=== PATIENT | male | born 1980 | race Caucasian/White ===

== ENCOUNTER 2016-08-12 03:05 | Inpatient (IN) | payer OTHER ==
[~2016-08-12] VITALS: Ht 180.3 cm; Wt 103.0 kg
[2016-08-12] VITALS (22 sets, daily range): BP systolic 116–163; BP diastolic 51–93; PULSE 66–94; RESP 12–22; TEMP 98.4–100.1; O2SAT 96–100
[~2016-08-12 03:05] MED LIST: IBUP800T23 PO; ROBA750T3 PO; Z.0.NO CURRENT MEDS
[2016-08-12] MEDS ORDERED: ALPR1TAB3 PO (03:15)
[2016-08-12] MEDS ORDERED: SODIUM CHLOR 0.9% 1000 ML INJ 1,000 ML IV SCH ×2 (03:24→08:32)
[2016-08-12] MEDS ORDERED: ceFAZolin 2 GM PREMIX 50 ML IV ONE (03:30)
[2016-08-12] MEDS ORDERED: SODIUM CHLORIDE 0.9% FLUSH 10 ML FLUSH IVF PRN (03:30)
[2016-08-12 03:49] LABS: AUTOMATED NEUTROPHIL # 7.4 TH/MM3 (1.8-7.7); BASOPHIL # 0.1 TH/MM3 (0-0.2); EOSINOPHIL # 1.1 TH/MM3 (0-0.4); EOSINOPHIL % 8.7 % (0.0-4.0); HEMATOCRIT 38.3 % (39.0-51.0); HEMO FLAGS DIFF FINAL; LYMPH % 17.6 % (9.0-44.0); LYMPHOCYTE # 2.1 TH/MM3 (1.0-4.8); MEAN CELL VOLUME 85.8 FL (80.0-100.0); MEAN CORPUSCULAR HEMOGLOBIN 29.2 PG (27.0-34.0); MONO % 11.7 % (0.0-8.0); PLATELET COUNT 266 TH/MM3 (150-450); RED BLOOD COUNT 4.46 MIL/MM3 (4.50-5.90); RED CELL DISTRIBUTION WIDTH 13.3 % (11.6-17.2); WHITE BLOOD COUNT 12.2 TH/MM3 (4.0-11.0)
[2016-08-12 03:56] LABS: APTT (PATIENT) 27.3 SEC (24.3-30.1); INTERNATIONAL NORMALIZED RATIO 0.9 RATIO; PROTHROMBIN TIME - PATIENT 10.3 SEC (9.8-11.6)
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
[2016-08-12] MEDS ORDERED: ONDANSETRON HCL 4 MG/2 ML VIAL ONE (04:15)
[2016-08-12] MEDS ORDERED: ONDANSETRON HCL 4 MG/2 ML VIAL IV ONE (04:30)
[2016-08-12] MEDS ORDERED: IOHEXOL 350 MG/ML 10 ML VIAL (for RAD DIAG) IV ONE (04:39)
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
[2016-08-12 05:35] LABS: BLOOD, URINE NEG (NEG); COMMENT (UR) CULT NOT INDICATED; CULTURE IF INDICATED CULT NOT INDICATED; GLUCOSE,URINE NEG (NEG); KETONE, URINE NEG (NEG); MUCUS URINE FEW /lpf (OCC); NITRITE,URINE NEG (NEG); URINE COLOR LIGHT-YELLOW (YELLW/STRAW)
[2016-08-12 05:35] LABS: AST (GOT) 18 U/L (15-37); BLOOD UREA NITROGEN 22 MG/DL (7-18); CHLORIDE 106 MEQ/L (98-107); GLOMERULAR FILTRATION RATE 62 ML/MIN (>89); POTASSIUM 4.8 MEQ/L (3.5-5.1); SODIUM (NA) 140 MEQ/L (136-145)
[2016-08-12 05:36] LABS: TOTAL BILIRUBIN ADULT 0.3 MG/DL (0.2-1.0)
[2016-08-12 05:38] LABS: AMPHETAMINE, URINE POS (NEG); BARBITURATES, URINE NEG (NEG); COCAINE, URINE POS (NEG)
[2016-08-12 05:54] LABS: ALT (GPT) 27 U/L (12-78); ANION GAP 8 MEQ/L (5-15); BICARBONATE 25.7 MEQ/L (21.0-32.0)
[2016-08-12 05:56] LABS: ALKALINE PHOSPHATASE 59 U/L (45-117)
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
[2016-08-12] MEDS ORDERED: MORPHINE SULFATE 4 MG/ML INJ IV PUSH ONE (07:45)
[2016-08-12] MEDS ORDERED: LIDOCAINE 1%/EPINEPHrine 1:100,000 SOLN 50 ML VIAL ONE (08:32)
[2016-08-12] MEDS ORDERED: GENTAMICIN SULFATE 80 MG/2 ML VIAL ONE (08:32)
[2016-08-12] MEDS ORDERED: GELFOAM SIZE 100 ONE (08:32)
[2016-08-12] MEDS ORDERED: THROMBIN (TOPICAL) 5,000 UNIT VIAL ONE (08:32)
[2016-08-12] MEDS ORDERED: ETOMIDATE 20 MG/10 ML VIAL ONE (08:32)
[2016-08-12] MEDS ORDERED: MIDAZOLAM HCL 5 MG/ML VIAL (1 ML) ONE (08:38)
[2016-08-12] MEDS ORDERED: NOREPINEPHRINE-DEXTROSE DRIP 250 ML IV ONE (08:39)
[2016-08-12] MEDS ORDERED: VANCOMYCIN HCL 1000 MG VIAL ONE (08:41)
[2016-08-12] MEDS ORDERED: MANNITOL INJ 50 ML ONE ×2 (08:42→09:01)
[2016-08-12] MEDS ORDERED: levETIRAcetam 500 MG/5 ML VIAL IV ONE (08:42)
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
[2016-08-12] MEDS ORDERED: ONDANSETRON HCL 4 MG/2 ML VIAL IV PRN ×2 (08:45→11:00)
[2016-08-12] MEDS ORDERED: SODIUM CHLORIDE 0.9% FLUSH 10 ML FLUSH IV FLUSH PRN (08:45)
[2016-08-12] MEDS ORDERED: ACETAMINOPHEN 325 MG TAB PO PRN (08:45)
[2016-08-12] MEDS ORDERED: ENALAPRILAT 1.25 MG/ML VIAL IV PRN (08:45)
--- NOTE | 2016-08-12 08:52 | RADRPT ---
EXAM DATE/TIME: 08/12/2016 08:08 [facility] COMPARISON: CT BRAIN W/O CONTRAST, August 12, 2016, 4:21. INDICATIONS : Evaluate intracranial hemorrhage. RADIATION DOSE: 40.82 CTDIvol (mGy) MEDICAL HISTORY : Non-responsive. SURGICAL HISTORY : Non-responsive. ENCOUNTER: Subsequent ACUITY: 1 day PAIN SCALE: Non-responsive LOCATION: Cranial TECHNIQUE: Multiple contiguous axial images were obtained of the head. Using automated exposure control and adj ustment of the mA and/or kV according to patient size, radiation dose was kept as low as reasonably a chievable to obtain optimal diagnostic quality images. FINDINGS: There is interval worsening of subfalcine herniation to the left which now measures 12 mm. The acute subdural hematoma along the right frontoparietal and temporal lobes has increased very slightly in o verall size compared to the previous examination and now measures 6 mm in greatest width. Extensive interparenchymal hemorrhage within the right high parietal region and probable acute subarachnoid hem orrhage within the right high parietal region is again noted. The acute displaced right high parieta l skull fracture is stable. CONCLUSION: 1. Interval worsening subfalcine herniation to the left which now measures 12 mm. 2. Slight interval increase in the acute subdural hematoma along the right frontoparietal and tempor al lobes which now measures 6 mm in greatest width. 3. Stable to slightly increased interparenchymal and subarachnoid hemorrhage within the right pariet al region. 4. Stable acute displaced right parietal skull fractures. Kt Henderson MD on August 12, 2016 at 8:18 Board Certified Radiologist. This report was verified electronically.
[2016-08-12] MEDS ORDERED: ROCURONIUM INJ 50 MG/5 ML VIAL ONE (08:57)
[2016-08-12] MEDS ORDERED: DOCUSATE SODIUM 100 MG CAP PO SCH (09:00)
[2016-08-12] MEDS ORDERED: MIDAZOLAM HCL 2 MG/2 ML VIAL ONE ×2 (09:02→12:21)
[2016-08-12] MEDS ORDERED: POTASSIUM PHOSPHATE INJ 30 MMOL in SODIUM CHLOR 0.9% 250 ML INJ 250 ML IV PRN (09:15)
[2016-08-12] MEDS ORDERED: MAGNESIUM OXIDE 400 MG TAB PO PRN (09:15)
[2016-08-12] MEDS ORDERED: POTASSIUM CHLOR 40 MEQ PREMIX 100 ML IV PRN ×2 (09:15)
[2016-08-12] MEDS ORDERED: MAGNESIUM SULFATE INJ 4 GM in SODIUM CHLORIDE 0.9% INJ 92 ML IV PRN (09:15)
[2016-08-12] MEDS ORDERED: POTASSIUM CHLORIDE 25 MEQ EFFERVESCENT TAB PO PRN (09:15)
[2016-08-12] MEDS ORDERED: MAGNESIUM SULFATE INJ 2 GM in SODIUM CHLORIDE 0.9% INJ 96 ML IV PRN (09:15)
[2016-08-12] MEDS ORDERED: SODIUM PHOSPHATE INJ 30 MMOL in SODIUM CHLOR 0.9% 250 ML INJ 240 ML IV PRN (09:15)
[2016-08-12] MEDS ORDERED: POTASSIUM CHLOR 20 MEQ PREMIX 100 ML IV PRN ×3 (09:15→10:00)
[2016-08-12] MEDS ORDERED: POTASSIUM PHOSPHATE MONOBASIC 500 MG TAB PO/TUBE PRN (09:15)
[2016-08-12 09:24] LABS: BLOOD GAS BASE EXCESS -0.8 mmol/L (-2-2); BLOOD GAS CARBOXYHEMOGLOBIN 1.6 % (0-4); BLOOD GAS HCO3 24 mmol/L (22-26); BLOOD GAS METHEMOGLOBIN 1.2 % (0-2); BLOOD GAS O2 HGB SATURATION 97 % (90-100); BLOOD GAS OXYGEN CONTENT 17.1 Vol % (12.0-20.0); BLOOD GAS PCO2 44 mmHg (38-42); BLOOD GAS PO2 460 mmHg (61-120); BLOOD GAS TOTAL HGB 11.7 G/DL (12.0-16.0); CRITICAL VALUE NO; FIO2 100 %; OXYGEN DEVICE VENT; TEMP CORR TO 98.6; VENT SETTINGS PRVC/16/525/5/IT1
[2016-08-12 09:25] LABS: DRAW SITE LT RADIAL; NUMBER OF ARTERIAL PUNCTURES 1; STAT NO; ULNAR PULSE PRESENT
--- NOTE | 2016-08-12 09:43 | PD.PROCEDR ---
Procedure Note Procedure Emergency intubation: INTUBATION: The patient was put in optimal position for the procedure. Rapid sequence intubation was initiated by me using 20 milligrams of etomidate IV, Versed 5 mg, Fentanyl 100 mcg IV and 100 milligrams of succinyl choline IV. DL with Mac 4 blade Grade 1 view, single attempt. The patient was intubated with 8.0 ETT cuffed endotracheal tube. Tube placement was confirmed by visualization of the tube and balloon passing through the cords, capnometry and subsequent chest x-ray. Breath sounds were equal and well aerated bilaterally postintubation. No breath sounds over stomach. Patient tolerated procedure well. Ravi Rockwell MD Aug 12, 2016 09:43
--- NOTE | 2016-08-12 09:45 | PD.PROCEDR ---
Central Line Procedure REASON FOR PROCEDURE Central venous access PROCEDURE PERFORMED Central line placement: R subclavian central line CONSENT Informed consent for procedure was obtained from mother and time out performed. The risks and benefits of the procedure were discussed to include but limited to bleeding, clot formation, infection, and even . ANESTHESIA Local injection of 1% Lidocaine DESCRIPTION OF THE PROCEDURE The patient was placed in supine, mild Trendelenburg position. The area was exposed and cleansed with ChloraPrep, times two. Large sterile drape was used to cover the patient, with the site exposed, under sterile conditions including cap, face mask, sterile gown, and sterile gloves. On single attempt, the introducer needle was inserted with negative pressure in syringe and venous flash was obtained. The guide wire was then advanced without any restriction and the needle was removed. The dilator was used without any complications. Using Seldinger technique the 20 cm triple lumen abx coated catheter was advanced over the guide wire to a depth of 18 centimeters. The guide wire was removed. All ports were aspirated with dark venous blood return and flushed easily with sterile saline. All ports were capped. Antibiotic disc was placed around central line at puncture site. The central line was secured to the skin with two interrupted 2.0 silk sutures. The area was bandaged with sterile see- through central line bandage. COMPLICATIONS: No apparent complications ESTIMATED BLOOD LOSS: Less than 1 cc. Ravi Rockwell MD Aug 12, 2016 09:45
--- NOTE | 2016-08-12 09:51 | RADRPT ---
EXAM DATE/TIME: 08/12/2016 09:09 [facility] COMPARISON: CHEST SINGLE AP, August 12, 2016, 3:44. INDICATIONS : Post central line placement. MEDICAL HISTORY : Unobtainable. SURGICAL HISTORY : Unobtainable. ENCOUNTER: Subsequent ACUITY: 2 days PAIN SCORE: Non-responsive. LOCATION: Bilateral chest FINDINGS: A single view of the chest demonstrates endotracheal tube appropriately positioned above the сергей, just below the clavicular heads. Nasogastric tube enters the stomach with the tip at the junction of the fundus and body. Right subclavian central venous catheter with the tip projecting over the centra l venous system. Lungs are hypoinflated but clear. No pneumothorax. Heart size is normal. Osseous structures are intac t. CONCLUSION: 1. Life support tubes appropriately positioned as above. 2. Lungs are hypoinflated but clear. No pneumothorax Milo Mcclure MD on August 12, 2016 at 9:48 Board Certified Radiologist. This report was verified electronically.
[2016-08-12] MEDS ORDERED: PANTOPRAZOLE SODIUM 40 MG VIAL IVP SCH (10:00)
[2016-08-12] MEDS ORDERED: fentaNYL CITRATE 250 MCG/5 ML AMP IV PUSH ONE (10:00)
[2016-08-12] MEDS ORDERED: SUCCINYLCHOLINE CHLORIDE 200 MG/10 ML VIAL IV PUSH ONE (10:00)
[2016-08-12] MEDS ORDERED: CALCIUM GLUCONATE 10% 1 GM/10 ML VIAL IV PRN (10:00)
[2016-08-12] MEDS ORDERED: MIDAZOLAM HCL 5 MG/5 ML VIAL IV PUSH ONE (10:00)
[2016-08-12] MEDS ORDERED: MAGNESIUM SULFATE INJ 4 GM in SODIUM CHLORIDE 0.9% INJ 100 ML IV PRN (10:00)
[2016-08-12] MEDS ORDERED: ETOMIDATE 40 MG/20 ML VIAL IV PUSH ONE (10:00)
[2016-08-12] MEDS ORDERED: MORPHINE SULFATE 4 MG/ML INJ IV PUSH PRN ×2 (10:00)
[2016-08-12] MEDS ORDERED: SODIUM CHLORIDE 0.9% FLUSH 5 ML FLUSH IVF PRN (10:00)
[2016-08-12] MEDS ORDERED: THROMBIN (TOPICAL) 5,000 UNIT VIAL TOP ONE (10:24)
[2016-08-12] MEDS ORDERED: GELFOAM SIZE 100 TOP ONE (10:24)
[2016-08-12] MEDS ORDERED: LIDOCAINE 1%/EPINEPHrine 1:100,000 SOLN 30 ML VIAL INFIL ONE (10:24)
[2016-08-12] MEDS ORDERED: GENTAMICIN SULFATE 80 MG/2 ML VIAL IRRIGATION ONE (10:24)
[2016-08-12 10:30] LABS: BARBITURATES, URINE NEG (NEG)
[2016-08-12 10:32] LABS: AMPHETAMINE, URINE POS (NEG); COCAINE, URINE POS (NEG)
[2016-08-12] MEDS ORDERED: ONDANSETRON HCL 4 MG/2 ML VIAL IV PUSH ONE (10:51)
[2016-08-12] MEDS ORDERED: PHENYLEPH/NS 1000 MCG/10 ML SYR IV ONE (10:51)
[2016-08-12] MEDS ORDERED: SODIUM CHLOR 0.9% 250 ML INJ 250 ML IV ONE (10:51)
[2016-08-12] MEDS ORDERED: LACTATED RINGER'S 1000 ML INJ 1,000 ML IV ONE (10:51)
[2016-08-12] MEDS ORDERED: SODIUM CHLORID 0.9% 500 ML INJ 1,500 ML IV ONE (10:51)
[2016-08-12] MEDS ORDERED: PHENYLEPHRINE HCL 10 MG/ML VIAL IV ONE (10:51)
[2016-08-12] MEDS ORDERED: BISACODYL 10 MG SUPP RECTAL PRN (11:00)
[2016-08-12] MEDS ORDERED: VANCOMYCIN INJ 1,000 MG in SODIUM CHLOR 0.9% 250 ML INJ 250 ML IV ONE (11:30)
[2016-08-12] MEDS ORDERED: RESP: ALBUTEROL 2.5 MG/IPRATROPIUM 0.5 MG NEB (SCH) NEB (12:00)
[2016-08-12 12:24] LABS: MRSA PCR NEGATIVE (NEGATIVE); STAPH AUREUS PCR NEGATIVE (NEGATIVE)
[2016-08-12 12:29] LABS: BLOOD GAS BASE EXCESS -3.4 mmol/L (-2-2); BLOOD GAS CARBOXYHEMOGLOBIN 1.6 % (0-4); BLOOD GAS HCO3 21 mmol/L (22-26); BLOOD GAS METHEMOGLOBIN 1.1 % (0-2); BLOOD GAS O2 HGB SATURATION 96 % (90-100); BLOOD GAS OXYGEN CONTENT 14.6 Vol % (12.0-20.0); BLOOD GAS PCO2 36 mmHg (38-42); BLOOD GAS PO2 161 mmHg (61-120); BLOOD GAS TOTAL HGB 10.5 G/DL (12.0-16.0); CRITICAL VALUE NO; DRAW SITE ART LINE; FIO2 50 %; OXYGEN DEVICE VENTILATOR; STAT NO; TEMP CORR TO 98.6; VENT SETTINGS PRVC/AC
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
[2016-08-12] MEDS: NS + KCL 20 MEQ INJ 1,000 ML IV SCH ×2 (13:05→20:48)
[2016-08-12] MEDS: PIPERACIL-TAZO 3.375 GM PREMIX 50 ML IV SCH ×3 (13:06→23:02)
[2016-08-12] MEDS: ceFAZolin 2 GM PREMIX 50 ML IV SCH ×2 (13:06→20:47)
[2016-08-12] MEDS: levETIRAcetam INJ 500 MG in SODIUM CHLORIDE 0.9% INJ 100 ML IV SCH ×2 (13:11→21:11)
[2016-08-12] MEDS ORDERED: RESP: ALBUTEROL 2.5 MG/IPRATROPIUM 0.5 MG NEB (PRN) NEB (14:00)
[2016-08-12] MEDS: RESP: ALBUTEROL 2.5 MG/IPRATROPIUM 0.5 MG NEB (SCH) NEB ×2 (15:26→20:33)
[2016-08-12] MEDS: PROPOFOL 1000 MG/100 ML INJ 100 ML IV SCH ×4 (16:16→23:01)
[2016-08-12] MEDS: fentaNYL DRIP 250 ML IV SCH (16:17)
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
[2016-08-12] MEDS: DOCUSATE SODIUM 100 MG CAP PO SCH (20:47)
[2016-08-12] MEDS: 3% SALINE INJ 500 ML IV SCH (20:47)
[2016-08-12] MEDS: MAGNESIUM HYDROXIDE SUSP 30 ML CUP PO SCH (20:47)
[2016-08-12] MEDS: SODIUM CHLORIDE 0.9% FLUSH 5 ML FLUSH IVF SCH (20:48)
[2016-08-12] MEDS: CHLORHEXIDINE 0.12% (ORAL KIT) 15 ML CUP MT SCH (20:48)
[2016-08-13] VITALS (19 sets, daily range): BP systolic 112–131; BP diastolic 49–62; PULSE 61–72; RESP 20–22; TEMP 98.9–99.8; O2SAT 98–100
[2016-08-13] MEDS: ceFAZolin 2 GM PREMIX 50 ML IV SCH (02:07)
[2016-08-13] MEDS: fentaNYL DRIP 250 ML IV SCH ×3 (02:07→11:58)
[2016-08-13] MEDS ORDERED: EPINEPHrine HCL (1:10,000) 1 MG/10 ML SYRINGE ONE (03:38)
[2016-08-13] MEDS ORDERED: ATROPINE SULFATE 1 MG/10 ML SYRINGE ONE (03:39)
[2016-08-13] MEDS ORDERED: LIDOCAINE HCL 2% 100 MG/5 ML SYRINGE ONE (03:39)
[2016-08-13] MEDS: PROPOFOL 1000 MG/100 ML INJ 100 ML IV SCH ×7 (03:50→22:31)
[2016-08-13] MEDS: RESP: ALBUTEROL 2.5 MG/IPRATROPIUM 0.5 MG NEB (SCH) NEB ×4 (04:01→20:11)
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
[2016-08-13] MEDS: PIPERACIL-TAZO 3.375 GM PREMIX 50 ML IV SCH ×4 (04:56→22:30)
[2016-08-13 05:48] LABS: BASOPHIL # 0.1 TH/MM3 (0-0.2); BASOPHIL % 0.5 % (0.0-2.0); EOSINOPHIL # 0.1 TH/MM3 (0-0.4); EOSINOPHIL % 0.5 % (0.0-4.0); LYMPH % 15.1 % (9.0-44.0); LYMPHOCYTE # 1.7 TH/MM3 (1.0-4.8); MEAN CELL VOLUME 87.2 FL (80.0-100.0); MEAN CORPUSCULAR HEMOGLOBIN 29.1 PG (27.0-34.0); MEAN CORPUSCULAR HGB CONC 33.4 % (32.0-36.0); MONO % 12.2 % (0.0-8.0); NEUT % 71.7 % (16.0-70.0); PLATELET COUNT 191 TH/MM3 (150-450); RED BLOOD COUNT 3.32 MIL/MM3 (4.50-5.90); RED CELL DISTRIBUTION WIDTH 13.3 % (11.6-17.2); WHITE BLOOD COUNT 11.2 TH/MM3 (4.0-11.0)
[2016-08-13 05:51] LABS: HEMO FLAGS DIFF FINAL
[2016-08-13 06:00] LABS: INTERNATIONAL NORMALIZED RATIO 0.9 RATIO; PROTHROMBIN TIME - PATIENT 10.3 SEC (9.8-11.6)
[2016-08-13 06:22] LABS: ANION GAP 9 MEQ/L (5-15); BICARBONATE 23.5 MEQ/L (21.0-32.0); BLOOD UREA NITROGEN 9 MG/DL (7-18); CHLORIDE 113 MEQ/L (98-107); GLOMERULAR FILTRATION RATE 86 ML/MIN (>89); POTASSIUM 3.6 MEQ/L (3.5-5.1); SODIUM (NA) 145 MEQ/L (136-145)
[2016-08-13 06:25] LABS: ALKALINE PHOSPHATASE 47 U/L (45-117); ALT (GPT) 16 U/L (12-78); AST (GOT) 15 U/L (15-37); TOTAL BILIRUBIN ADULT 0.3 MG/DL (0.2-1.0)
--- NOTE | 2016-08-13 06:52 | RADRPT ---
EXAM DATE/TIME: 08/13/2016 05:46 [facility] COMPARISON: No previous studies available for comparison. INDICATIONS : Shortness of breath. MEDICAL HISTORY : None. SURGICAL HISTORY : None. ENCOUNTER: Subsequent ACUITY: 3 days PAIN SCORE: Non-responsive. LOCATION: Bilateral chest FINDINGS: A single view of the chest demonstrates the endotracheal tube, nasogastric tube and right subclavian central line all in good position. The cardiomediastinal contours are unremarkable. Osseous structu res are intact. CONCLUSION: Tubes and catheter in good position. Mild perihilar fullness unchanged. Nikolai Small MD on August 13, 2016 at 6:50 Board Certified Radiologist. This report was verified electronically.
[2016-08-13] MEDS: DOCUSATE SODIUM 100 MG CAP PO SCH ×2 (08:32→20:12)
[2016-08-13] MEDS: NS + KCL 20 MEQ INJ 1,000 ML IV SCH (08:33)
[2016-08-13] MEDS: CHLORHEXIDINE 0.12% (ORAL KIT) 15 ML CUP MT SCH ×2 (08:33→20:14)
[2016-08-13] MEDS: SODIUM CHLORIDE 0.9% FLUSH 5 ML FLUSH IVF SCH ×2 (08:34→20:14)
[2016-08-13 08:35] LABS: CALCIUM-PROTEIN CORRECTED 8.1 MG/DL (8.5-10.1)
[2016-08-13] MEDS ORDERED: PANTOPRAZOLE SOD 40 MG DELAYED RELEASE TAB PO SCH (09:00)
[2016-08-13] MEDS: PANTOPRAZOLE SODIUM 40 MG VIAL IVP SCH (09:00)
[2016-08-13] MEDS: levETIRAcetam INJ 500 MG in SODIUM CHLORIDE 0.9% INJ 100 ML IV SCH ×2 (10:24→21:58)
[2016-08-13] MEDS ORDERED: CALCIUM GLUCONATE INJ 1 GM in SODIUM CHLORIDE 0.9% INJ 100 ML IV PRN (11:00)
[2016-08-13] MEDS: 3% SALINE INJ 500 ML IV SCH (11:58)
--- NOTE | 2016-08-13 12:49 | HHI.NSPN ---
(Promise Todd) Note Status Status: Progress Note (Promise Todd) Interval History Interval History 35 y/o male underwent emergent right decompressive craniectomy with evacuation of SDH and placement of ICP monitor on 08/12/16. 08/13: ICPs stable overnight, f/u CT completed, intubated and well sedated. ( Promise Todd) Labs, Micro, & Vital Signs Results Date Time Temp Pulse Resp B/P Pulse Ox O2 Delivery O2 Flow Rate FiO2 08/13/16 11:33 100 40 08/13/16 10:00 61 08/13/16 08:00 40 08/13/16 08:00 62 08/13/16 08:00 99.2 65 20 131/60 100 08/13/16 07:32 100 40 08/13/16 06:00 63 08/13/16 05:10 100 40 08/13/16 04:10 100 100 08/13/16 04:00 40 08/13/16 04:00 98.9 62 22 112/54 100 08/13/16 04:00 62 08/13/16 02:00 62 08/13/16 00:45 40 08/13/16 00:30 99 40 08/13/16 00:00 66 08/13/16 00:00 40 08/13/16 00:00 99.8 66 22 114/58 99 08/12/16 22:00 71 08/12/16 20:36 100 40 08/12/16 20:33 100 40 08/12/16 20:00 40 08/12/16 20:00 100.1 74 22 140/66 100 08/12/16 20:00 74 08/12/16 18:00 78 08/12/16 16:00 99.9 78 22 163/75 100 08/12/16 16:00 40 08/12/16 16:00 78 08/12/16 15:28 100 40 08/12/16 14:00 80 08/12/16 14:00 85 22 145/73 100 08/12/16 13:16 40 08/12/16 13:15 100 40 08/12/16 13:00 85 20 149/68 100 08/12/16 13:00 100 Mechanical Ventilator 08/13/16 07:00 Intake Total 2943 ml Output Total 4115 ml Balance -1172 ml Constitutional Vital Signs Date Time Temp Pulse Resp B/P Pulse Ox O2 Delivery O2 Flow Rate FiO2 08/13/16 11:33 100 40 08/13/16 10:00 61 08/13/16 08:00 40 08/13/16 08:00 62 08/13/16 08:00 99.2 65 20 131/60 100 08/13/16 07:32 100 40 08/13/16 06:00 63 08/13/16 05:10 100 40 08/13/16 04:10 100 100 08/13/16 04:00 40 08/13/16 04:00 98.9 62 22 112/54 100 08/13/16 04:00 62 08/13/16 02:00 62 08/13/16 00:45 40 08/13/16 00:30 99 40 08/13/16 00:00 66 08/13/16 00:00 40 08/13/16 00:00 99.8 66 22 114/58 99 08/12/16 22:00 71 08/12/16 20:36 100 40 08/12/16 20:33 100 40 08/12/16 20:00 40 08/12/16 20:00 100.1 74 22 140/66 100 08/12/16 20:00 74 08/12/16 18:00 78 08/12/16 16:00 99.9 78 22 163/75 100 08/12/16 16:00 40 08/12/16 16:00 78 08/12/16 15:28 100 40 08/12/16 14:00 80 08/12/16 14:00 85 22 145/73 100 08/12/16 13:16 40 08/12/16 13:15 100 40 08/12/16 13:00 85 20 149/68 100 08/12/16 13:00 100 Mechanical Ventilator 08/13/16 07:00 Intake Total 2943 ml Output Total 4115 ml Balance -1172 ml (Promise Todd) Review of Systems/Exam Exam Mr. [place] is intubated and well sedated. No spontaneous eye opening. Right flap full, soft to palpate. ICP monitor = 3 Cranial Nerves: Pupils equal, round, reactive to light. Right periorbital swelling, mild left upward gaze. Motor: His muscle tone and bulk are normal. Well sedated, no response x 4 to pain Reflexes: Plantars silent b/l Cerebellar: Examination cannot be adequately assessed due to the patient's neurological condition. (Promise Todd) Medications Current Medications Current Medications Medications (Trade) Dose Ordered Sig/Charleen Route PRN Reason Start Time Stop Time Status Last Admin Dose Admin Chlorhexidine Gluconate 15 ml 15 ml BID@08,20 MT 08/12/16 20:00 08/13/16 08:33 Propofol 100 ml @ 0 mls/hr TITRATE IV 08/12/16 08:45 08/13/16 10:23 Fentanyl Citrate (fentaNYL DRIP) 250 ml @ 0 mls/hr TITRATE IV 08/12/16 08:45 08/13/16 11:58 Enalaprilat (Vasotec Inj) 1.25 mg Q8H PRN IV SBP>180, DBP>95 08/12/16 08:45 Magnesium Hydroxide 30 ml 30 ml HS PO 08/12/16 21:00 08/12/16 20:47 Sodium Chloride 500 ml @ 30 mls/hr CONTINUOUS IV 08/12/16 11:00 08/17/16 10:59 08/13/16 11:58 Potassium Chloride 100 ml @ 50 mls/hr Q2H PRN IV For Potassium 2.8 - 3.2 mEq/L 08/12/16 09:15 Potassium Chloride (KCl 20 Meq Premix Inj) 100 ml @ 50 mls/hr Q2H PRN IV For Potassium 2.8 - 3.2 mEq/L 08/12/16 09:15 Potassium Bicarb/ Potassium Chloride 50 meq 50 meq UNSCH PRN PO For Potassium 3.3 - 3.5 mEq/L 08/12/16 09:15 Potassium Chloride 100 ml @ 25 mls/hr UNSCH PRN IV For Potassium 3.3 - 3.5 mEq/L 08/12/16 09:15 Potassium Chloride 100 ml @ 50 mls/hr Q2H PRN IV For Potassium 3.3 - 3.5 mEq/L 08/12/16 09:15 Magnesium Sulfate/ Sodium Chloride (Magnesium Sulfate Inj/NS Inj) 100 ml @ 50 mls/hr UNSCH PRN IV For Magnesium 0.9 - 1.1 mg/dL 08/12/16 09:15 Magnesium Oxide 800 mg 800 mg UNSCH PRN PO For Magnesium 1.2 - 1.6 mg/dL 08/12/16 09:15 Magnesium Sulfate/ Sodium Chloride (Magnesium Sulfate Inj/NS Inj) 100 ml @ 50 mls/hr UNSCH PRN IV For Magnesium 1.2 - 1.6 mg/dL 08/12/16 09:15 Potassium Phosphate 2000 mg 2,000 mg Q4H PRN PO For Phosphorus < 2.5 mg/dL 08/12/16 09:15 Sodium Phosphate/ Sodium Chloride (Sodium Phosphate Inj/NS 250 ml Inj) 250 ml @ 42 mls/hr UNSCH PRN IV For Phosphorus < 2.5 mg/dL 08/12/16 09:15 Potassium Phosphate 2000 mg 2,000 mg UNSCH PRN PO/TUBE SEE LABEL COMMENTS 08/12/16 09:15 Potassium Phosphate 30 mmol/ Sodium Chloride 260 ml @ 42 mls/hr UNSCH PRN IV SEE LABEL COMMENTS 08/12/16 09:15 Piperacillin Sod/ Tazobactam Sod (Zosyn 3.375 Gm Premix) 50 ml @ 100 mls/hr Q6H IV 08/12/16 12:00 08/13/16 11:00 IV Flush (NS Flush) 2 ml UNSCH PRN IVF FLUSH AFTER USING IV ACCESS 08/12/16 10:00 IV Flush 2 ml 2 ml BID IVF 08/12/16 21:00 08/13/16 08:34 Levetriacetam/ Sodium Chloride (Keppra Inj/NS Inj) 105 ml @ 400 mls/hr Q12H IV 08/12/16 11:00 08/13/16 10:24 Bisacodyl (Dulcolax Supp) 10 mg DAILY PRN RECTAL CONSTIPATION 08/12/16 11:00 Docusate Sodium (Colace) 100 mg BID PO 08/12/16 21:00 08/13/16 08:32 Pantoprazole Sodium (Protonix Inj) 40 mg DAILY IVP 08/13/16 09:00 Ondansetron HCl 4 mg 4 mg Q6H PRN IV NAUSEA OR VOMITING 08/12/16 11:00 Potassium Chloride 100 ml @ 50 mls/hr UNSCH PRN IV POTASSIUM LESS THAN 4 08/12/16 10:00 Magnesium Sulfate/ Sodium Chloride (Magnesium Sulfate Inj/NS Inj) 108 ml @ 108 mls/hr UNSCH PRN IV MAGNESIUM LESS THAN 2 08/12/16 10:00 Acetaminophen/ Hydrocodone Bitart ([place] 10-325 Mg) 1 tab Q4H PRN PO SEE LABEL COMMENTS 08/12/16 10:00 Acetaminophen/ Hydrocodone Bitart ([place] 10-325 Mg) 2 tab Q4H PRN PO SEE LABEL COMMENTS 08/12/16 10:00 Acetaminophen 650 mg 650 mg Q4H PRN PO TEMPERATURE > 101.5 F 08/12/16 10:00 Calcium Gluconate/ Sodium Chloride (Calcium Gluconate Inj/NS Inj) 110 ml @ 110 mls/hr UNSCH PRN IV SEE LABEL COMMENTS 08/13/16 11:00 08/13/16 11:00 (Promise Todd) Medical Decision Making MDM Remarks 35 y/o male TBI, s/p right decompressive craniectomy with evac of SDH, placement of ICP monitor on 08/12/16, stable ICPs (Promise Todd) Plan Plan Remarks stable f/u CT Head cont ICP monitoring cont critical care nonchemical dvt prophylaxis protonix for stress ulcer proph (Promise Todd) Attending Statement The exam, history, and the medical decision-making described in the above note were completed with the assistance of the mid-level provider. I reviewed and agree with the findings presented. I attest that I had a [id number] encounter with the patient on the same day, and personally performed and documented my assessment and findings in the medical record. (Harman Pizano MD) Promise Todd Aug 13, 2016 12:49 Harman Pizano MD Aug 14, 2016 16:14
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
[2016-08-13] MEDS: MAGNESIUM HYDROXIDE SUSP 30 ML CUP PO SCH (20:12)
[2016-08-13] MEDS: ACETAMINOPHEN/HYDROcodone 325 MG/10 MG TAB PO PRN (20:13)
[2016-08-14] VITALS (18 sets, daily range): BP systolic 108–157; BP diastolic 45–83; PULSE 61–98; RESP 12–24; TEMP 99.7–100.6; O2SAT 97–100
[2016-08-14] MEDS: ACETAMINOPHEN/HYDROcodone 325 MG/10 MG TAB PO PRN ×3 (00:06→08:03)
[2016-08-14] MEDS: fentaNYL DRIP 250 ML IV SCH ×2 (00:06→08:04)
[2016-08-14] MEDS: PROPOFOL 1000 MG/100 ML INJ 100 ML IV SCH ×3 (03:41→12:28)
[2016-08-14] MEDS: 3% SALINE INJ 500 ML IV SCH (03:41)
[2016-08-14] MEDS: RESP: ALBUTEROL 2.5 MG/IPRATROPIUM 0.5 MG NEB (SCH) NEB ×4 (03:49→22:50)
[2016-08-14] MEDS: PIPERACIL-TAZO 3.375 GM PREMIX 50 ML IV SCH ×3 (04:11→17:18)
[2016-08-14 05:21] LABS: BASOPHIL # 0.1 TH/MM3 (0-0.2); BASOPHIL % 0.7 % (0.0-2.0); EOSINOPHIL # 0.5 TH/MM3 (0-0.4); EOSINOPHIL % 4.8 % (0.0-4.0); HEMATOCRIT 26.3 % (39.0-51.0); HEMO FLAGS DIFF FINAL; MEAN CELL VOLUME 87.3 FL (80.0-100.0); MEAN CORPUSCULAR HEMOGLOBIN 29.7 PG (27.0-34.0); NEUT % 64.5 % (16.0-70.0); PLATELET COUNT 180 TH/MM3 (150-450); RED BLOOD COUNT 3.02 MIL/MM3 (4.50-5.90); RED CELL DISTRIBUTION WIDTH 13.4 % (11.6-17.2); WHITE BLOOD COUNT 9.3 TH/MM3 (4.0-11.0)
[2016-08-14 05:21] LABS: BLOOD GAS BASE EXCESS -4.2 mmol/L (-2-2); BLOOD GAS CARBOXYHEMOGLOBIN 1.1 % (0-4); BLOOD GAS HCO3 20 mmol/L (22-26); BLOOD GAS METHEMOGLOBIN 1.1 % (0-2); BLOOD GAS O2 HGB SATURATION 93 % (90-100); BLOOD GAS OXYGEN CONTENT 10.9 Vol % (12.0-20.0); BLOOD GAS PCO2 32 mmHg (38-42); BLOOD GAS PO2 75 mmHg (61-120); BLOOD GAS TOTAL HGB 8.2 G/DL (12.0-16.0); CRITICAL VALUE NO; OXYGEN DEVICE VENTILATOR; TEMP CORR TO 98.6
[2016-08-14 05:22] LABS: DRAW SITE ALINE; FIO2 40 %; STAT NO
[2016-08-14 06:04] LABS: ALKALINE PHOSPHATASE 46 U/L (45-117); ALT (GPT) 14 U/L (12-78); ANION GAP 9 MEQ/L (5-15); AST (GOT) 13 U/L (15-37); BLOOD UREA NITROGEN 8 MG/DL (7-18); CHLORIDE 117 MEQ/L (98-107); GLOMERULAR FILTRATION RATE 80 ML/MIN (>89); MAGNESIUM 2.2 MG/DL (1.5-2.5); POTASSIUM 3.4 MEQ/L (3.5-5.1); SODIUM (NA) 148 MEQ/L (136-145); TOTAL BILIRUBIN ADULT 0.3 MG/DL (0.2-1.0)
--- NOTE | 2016-08-14 06:21 | RADRPT ---
EXAM DATE/TIME: 08/14/2016 05:39 [place] COMPARISON: CHEST SINGLE AP, August 13, 2016, 5:46. INDICATIONS : Shortness of breath. MEDICAL HISTORY : None. SURGICAL HISTORY : None. ENCOUNTER: Initial ACUITY: 1 day PAIN SCORE: 10/10 LOCATION: Bilateral chest FINDINGS: A single view of the chest demonstrates the endotracheal tube, nasogastric and right jugular central line are all stable. No focal infiltrate or mass. No visible pneumothorax.. The cardiomediastinal co ntours are unremarkable. Osseous structures are intact. CONCLUSION: Lungs are clear. Tubes and catheter in good position Nikolai Small MD on August 14, 2016 at 6:19 Board Certified Radiologist. This report was verified electronically.
[2016-08-14] MEDS: PANTOPRAZOLE SODIUM 40 MG VIAL IVP SCH (08:02)
[2016-08-14] MEDS: CHLORHEXIDINE 0.12% (ORAL KIT) 15 ML CUP MT SCH ×2 (08:03→19:38)
[2016-08-14] MEDS: SODIUM CHLORIDE 0.9% FLUSH 5 ML FLUSH IVF SCH ×2 (08:03→19:38)
[2016-08-14] MEDS: POTASSIUM PHOSPHATE MONOBASIC 500 MG TAB PO PRN ×2 (08:03→12:19)
[2016-08-14] MEDS: DOCUSATE SODIUM 100 MG CAP PO SCH ×2 (08:03→19:39)
[2016-08-14] MEDS ORDERED: LACTULOSE SYRUP 20 GM/30 ML CUP PO SCH (09:00)
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
[2016-08-14] MEDS: VALPROIC ACID SYRUP 250 MG/5 ML UDC PO SCH ×2 (10:41→19:39)
[2016-08-14] MEDS: LACTULOSE SYRUP 20 GM/30 ML CUP PO SCH (10:41)
[2016-08-14] MEDS: levETIRAcetam INJ 500 MG in SODIUM CHLORIDE 0.9% INJ 100 ML IV SCH ×2 (10:42→21:45)
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
[2016-08-14 12:11] LABS: POTASSIUM 3.6 MEQ/L (3.5-5.1)
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
[2016-08-14] MEDS ORDERED: LABETALOL HCL 100 MG/20 ML VIAL ONE (14:02)
[2016-08-14] MEDS ORDERED: LABETALOL HCL 100 MG/20 ML VIAL IV PRN (15:00)
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
[2016-08-14] MEDS ORDERED: FUROSEMIDE 40 MG/4 ML VIAL IV PUSH ONE (15:45)
[2016-08-14] MEDS: MORPHINE SULFATE 4 MG/ML INJ IV PUSH PRN ×2 (15:46→19:50)
[2016-08-14 18:20] LABS: POTASSIUM 3.4 MEQ/L (3.5-5.1)
[2016-08-14] MEDS: SODIUM CHLOR 0.9% 1000 ML INJ 1,000 ML IV SCH (19:38)
[2016-08-14] MEDS: MAGNESIUM HYDROXIDE SUSP 30 ML CUP PO SCH (19:39)
[2016-08-15] VITALS (11 sets, daily range): BP systolic 130–153; BP diastolic 63–84; PULSE 60–86; RESP 12–19; TEMP 98.4–99.6; O2SAT 93–98
[2016-08-15] MEDS: PIPERACIL-TAZO 3.375 GM PREMIX 50 ML IV SCH ×4 (00:12→17:40)
[2016-08-15] MEDS ORDERED: SODIUM CHLOR 0.9% 250 ML INJ 250 ML ONE (00:18)
[2016-08-15] MEDS: MORPHINE SULFATE 4 MG/ML INJ IV PUSH PRN ×10 (00:19→22:31)
[2016-08-15] MEDS: RESP: ALBUTEROL 2.5 MG/IPRATROPIUM 0.5 MG NEB (SCH) NEB ×4 (03:39→20:30)
--- NOTE | 2016-08-15 05:17 | RADRPT ---
EXAM DATE/TIME: 08/15/2016 04:27 [place] COMPARISON: CHEST SINGLE AP, August 14, 2016, 5:39. INDICATIONS : Short of breath. MEDICAL HISTORY : None. SURGICAL HISTORY : None. ENCOUNTER: Subsequent ACUITY: 4 - 6 days PAIN SCORE: Non-responsive. LOCATION: Bilateral chest FINDINGS: A single view of the chest demonstrates the lungs to be symmetrically aerated without evidence of mas s, infiltrate or effusion. Right-sided subclavian central venous catheter in good position The cardi omediastinal contours are unremarkable. Osseous structures are intact. CONCLUSION: Normal examination. No infiltrate or mass Nikolai Small MD on August 15, 2016 at 5:16 Board Certified Radiologist. This report was verified electronically.
[2016-08-15 06:23] LABS: AUTOMATED NEUTROPHIL # 7.4 TH/MM3 (1.8-7.7); BASOPHIL % 0.4 % (0.0-2.0); EOSINOPHIL # 0.2 TH/MM3 (0-0.4); EOSINOPHIL % 1.5 % (0.0-4.0); HEMATOCRIT 27.5 % (39.0-51.0); HEMO FLAGS DIFF FINAL; LYMPH % 14.9 % (9.0-44.0); LYMPHOCYTE # 1.5 TH/MM3 (1.0-4.8); MEAN CELL VOLUME 85.3 FL (80.0-100.0); MEAN CORPUSCULAR HEMOGLOBIN 29.2 PG (27.0-34.0); MEAN CORPUSCULAR HGB CONC 34.2 % (32.0-36.0); MONO % 12.1 % (0.0-8.0); NEUT % 71.1 % (16.0-70.0); PLATELET COUNT 224 TH/MM3 (150-450); RED BLOOD COUNT 3.22 MIL/MM3 (4.50-5.90); RED CELL DISTRIBUTION WIDTH 13.1 % (11.6-17.2); WHITE BLOOD COUNT 10.3 TH/MM3 (4.0-11.0)
[2016-08-15 06:33] LABS: ALKALINE PHOSPHATASE 62 U/L (45-117); ALT (GPT) 15 U/L (12-78); ANION GAP 8 MEQ/L (5-15); AST (GOT) 18 U/L (15-37); BICARBONATE 25.6 MEQ/L (21.0-32.0); BLOOD UREA NITROGEN 7 MG/DL (7-18); CHLORIDE 108 MEQ/L (98-107); GLOMERULAR FILTRATION RATE 103 ML/MIN (>89); MAGNESIUM 2.2 MG/DL (1.5-2.5); POTASSIUM 3.6 MEQ/L (3.5-5.1); SODIUM (NA) 142 MEQ/L (136-145); TOTAL BILIRUBIN ADULT 0.8 MG/DL (0.2-1.0)
[2016-08-15] MEDS: CHLORHEXIDINE 0.12% (ORAL KIT) 15 ML CUP MT SCH (08:00)
[2016-08-15] MEDS: SODIUM CHLOR 0.9% 1000 ML INJ 1,000 ML IV SCH (08:20)
[2016-08-15] MEDS: PANTOPRAZOLE SODIUM 40 MG VIAL IVP SCH (08:32)
[2016-08-15] MEDS: LACTULOSE SYRUP 20 GM/30 ML CUP PO SCH (09:00)
[2016-08-15] MEDS: SODIUM CHLORIDE 0.9% FLUSH 5 ML FLUSH IVF SCH ×2 (09:00→20:09)
--- NOTE | 2016-08-15 09:58 | HHI.NSPN ---
(Promise Todd) Note Status Status: Progress Note (Promise Todd) Interval History Interval History 35 y/o male underwent emergent right decompressive craniectomy with evacuation of SDH and placement of ICP monitor on 08/12/16. 08/13: ICPs stable overnight, f/u CT completed, intubated and well sedated. 08/14: remains with stable ICPs, following simple commands to right side, reports slight movement with stimuli to left side 08/15: extubated, doing well, slightly conversing, giving right thumbs up. (Promise Todd) Labs, Micro, & Vital Signs Results Date Time Temp Pulse Resp B/P Pulse Ox O2 Delivery O2 Flow Rate FiO2 08/15/16 09:30 97 Nasal Cannula 2.00 08/15/16 08:00 98.4 68 16 153/63 97 08/15/16 08:00 75 08/15/16 07:00 Room Air 08/15/16 06:00 62 08/15/16 05:10 17 08/15/16 04:00 99.4 61 16 130/66 98 08/15/16 04:00 61 08/15/16 02:00 72 08/15/16 00:00 99.0 78 19 135/70 96 08/15/16 00:00 78 08/14/16 22:56 100 Nasal Cannula 2.00 08/14/16 22:00 71 08/14/16 20:00 99.9 81 24 145/83 98 Arterial Line 08/14/16 20:00 81 08/14/16 19:00 100 Nasal Cannula 2.00 08/14/16 18:00 74 08/14/16 16:00 100.5 80 17 157/80 97 08/14/16 16:00 75 08/14/16 14:00 98 08/14/16 14:00 96 Nasal Cannula 4.00 08/14/16 13:57 97 Nasal Cannula 4 08/14/16 13:50 40 08/14/16 13:48 40 08/14/16 13:40 40 08/14/16 13:34 40 08/14/16 13:34 100 40 08/14/16 13:30 40 08/14/16 12:00 40 08/14/16 12:00 100.6 82 12 152/68 98 08/14/16 12:00 70 08/14/16 11:34 100 40 08/14/16 11:00 40 08/14/16 10:00 95 08/15/16 07:00 Intake Total 1666 ml Output Total 5508.0 ml Balance -3842.0 ml Constitutional Vital Signs Date Time Temp Pulse Resp B/P Pulse Ox O2 Delivery O2 Flow Rate FiO2 08/15/16 09:30 97 Nasal Cannula 2.00 08/15/16 08:00 98.4 68 16 153/63 97 08/15/16 08:00 75 08/15/16 07:00 Room Air 08/15/16 06:00 62 08/15/16 05:10 17 08/15/16 04:00 99.4 61 16 130/66 98 08/15/16 04:00 61 08/15/16 02:00 72 08/15/16 00:00 99.0 78 19 135/70 96 08/15/16 00:00 78 08/14/16 22:56 100 Nasal Cannula 2.00 08/14/16 22:00 71 08/14/16 20:00 99.9 81 24 145/83 98 Arterial Line 08/14/16 20:00 81 08/14/16 19:00 100 Nasal Cannula 2.00 08/14/16 18:00 74 08/14/16 16:00 100.5 80 17 157/80 97 08/14/16 16:00 75 08/14/16 14:00 98 08/14/16 14:00 96 Nasal Cannula 4.00 08/14/16 13:57 97 Nasal Cannula 4 08/14/16 13:50 40 08/14/16 13:48 40 08/14/16 13:40 40 08/14/16 13:34 40 08/14/16 13:34 100 40 08/14/16 13:30 40 08/14/16 12:00 40 08/14/16 12:00 100.6 82 12 152/68 98 08/14/16 12:00 70 08/14/16 11:34 100 40 08/14/16 11:00 40 08/14/16 10:00 95 08/15/16 07:00 Intake Total 1666 ml Output Total 5508.0 ml Balance -3842.0 ml (Promise Todd) Review of Systems/Exam Exam Mr. Sweet is extubated. Mildly conversing and follows commands. Right flap full and soft. Surgical wound well healing well, NORM drains with 133/50 cc drainage overnight Cranial Nerves: Pupils equal reactive to light. Right periorbital swelling Motor: Moves right side 3-4/5 and gave right thumbs up, no movement to left side to command Reflexes: Positive left Babinski response Cerebellar: Examination cannot be adequately assessed due to the patient's neurological condition. (Promise Todd) Medications Current Medications Current Medications Medications (Trade) Dose Ordered Sig/Charleen Route PRN Reason Start Time Stop Time Status Last Admin Dose Admin Chlorhexidine Gluconate (Peridex 0.12% Liq) 15 ml BID@08,20 MT 08/12/16 20:00 08/15/16 08:00 Enalaprilat (Vasotec Inj) 1.25 mg Q8H PRN IV SBP>180, DBP>95 08/12/16 08:45 Magnesium Hydroxide 30 ml 30 ml HS PO 08/12/16 21:00 08/13/16 20:12 Potassium Chloride 100 ml @ 50 mls/hr Q2H PRN IV For Potassium 2.8 - 3.2 mEq/L 08/12/16 09:15 Potassium Chloride (KCl 20 Meq Premix Inj) 100 ml @ 50 mls/hr Q2H PRN IV For Potassium 2.8 - 3.2 mEq/L 08/12/16 09:15 Potassium Bicarb/ Potassium Chloride 50 meq 50 meq UNSCH PRN PO For Potassium 3.3 - 3.5 mEq/L 08/12/16 09:15 Potassium Chloride 100 ml @ 25 mls/hr UNSCH PRN IV For Potassium 3.3 - 3.5 mEq/L 08/12/16 09:15 08/14/16 22:07 Potassium Chloride 100 ml @ 50 mls/hr Q2H PRN IV For Potassium 3.3 - 3.5 mEq/L 08/12/16 09:15 Magnesium Sulfate/ Sodium Chloride (Magnesium Sulfate Inj/NS Inj) 100 ml @ 50 mls/hr UNSCH PRN IV For Magnesium 0.9 - 1.1 mg/dL 08/12/16 09:15 Magnesium Oxide 800 mg 800 mg UNSCH PRN PO For Magnesium 1.2 - 1.6 mg/dL 08/12/16 09:15 Magnesium Sulfate/ Sodium Chloride (Magnesium Sulfate Inj/NS Inj) 100 ml @ 50 mls/hr UNSCH PRN IV For Magnesium 1.2 - 1.6 mg/dL 08/12/16 09:15 Potassium Phosphate 2000 mg 2,000 mg Q4H PRN PO For Phosphorus < 2.5 mg/dL 08/12/16 09:15 08/14/16 12:19 Sodium Phosphate/ Sodium Chloride (Sodium Phosphate Inj/NS 250 ml Inj) 250 ml @ 42 mls/hr UNSCH PRN IV For Phosphorus < 2.5 mg/dL 08/12/16 09:15 08/15/16 01:22 Potassium Phosphate 2000 mg 2,000 mg UNSCH PRN PO/TUBE SEE LABEL COMMENTS 08/12/16 09:15 Potassium Phosphate 30 mmol/ Sodium Chloride 260 ml @ 42 mls/hr UNSCH PRN IV SEE LABEL COMMENTS 08/12/16 09:15 Piperacillin Sod/ Tazobactam Sod (Zosyn 3.375 Gm Premix) 50 ml @ 100 mls/hr Q6H IV 08/12/16 12:00 08/15/16 05:06 IV Flush (NS Flush) 2 ml UNSCH PRN IVF FLUSH AFTER USING IV ACCESS 08/12/16 10:00 IV Flush 2 ml 2 ml BID IVF 08/12/16 21:00 08/15/16 09:00 Levetriacetam/ Sodium Chloride (Keppra Inj/NS Inj) 105 ml @ 400 mls/hr Q12H IV 08/12/16 11:00 08/14/16 21:45 Bisacodyl (Dulcolax Supp) 10 mg DAILY PRN RECTAL CONSTIPATION 08/12/16 11:00 Docusate Sodium (Colace) 100 mg BID PO 08/12/16 21:00 08/13/16 20:12 Pantoprazole Sodium (Protonix Inj) 40 mg DAILY IVP 08/13/16 09:00 08/15/16 08:32 Ondansetron HCl 4 mg 4 mg Q6H PRN IV NAUSEA OR VOMITING 08/12/16 11:00 Potassium Chloride 100 ml @ 50 mls/hr UNSCH PRN IV POTASSIUM LESS THAN 4 08/12/16 10:00 Magnesium Sulfate/ Sodium Chloride (Magnesium Sulfate Inj/NS Inj) 108 ml @ 108 mls/hr UNSCH PRN IV MAGNESIUM LESS THAN 2 08/12/16 10:00 Acetaminophen/ Hydrocodone Bitart ([place] 10-325 Mg) 1 tab Q4H PRN PO SEE LABEL COMMENTS 08/12/16 10:00 Acetaminophen 650 mg 650 mg Q4H PRN PO TEMPERATURE > 101.5 F 08/12/16 10:00 Calcium Gluconate/ Sodium Chloride (Calcium Gluconate Inj/NS Inj) 110 ml @ 110 mls/hr UNSCH PRN IV SEE LABEL COMMENTS 08/13/16 11:00 08/13/16 11:00 Lactulose (Lactulose Liq) 30 ml DAILY PO 08/14/16 09:00 08/14/16 10:41 Valproic Acid (Depakene Liq) 250 mg BID PO 08/14/16 10:30 08/14/16 10:41 Labetalol HCl (Trandate Inj) 10 mg Q2H PRN IV SBP >160 08/14/16 15:00 08/14/16 14:17 Morphine Sulfate (Morphine Inj) 2 mg Q2H PRN IV PUSH PAIN SCALE 1 TO 10 08/14/16 15:45 08/15/16 09:00 (Promise Todd) Medical Decision Making MDM Remarks 35 y/o male TBI, s/p right decompressive craniectomy with evac of SDH, placement of ICP monitor on 08/12/16, improving mental status, persistent left hemiplegia s/p extubation (Promise Todd) Plan Plan Remarks doing well, PT, OT cont nonchemical dvt prophylaxis protonix for stress ulcer proph (Promise Todd) Attending Statement The exam, history, and the medical decision-making described in the above note were completed with the assistance of the mid-level provider. I reviewed and agree with the findings presented. I attest that I had a [id number] encounter with the patient on the same day, and personally performed and documented my assessment and findings in the medical record. (Harman Pizano MD) Promise Todd Aug 15, 2016 09:58 Harman Pizano MD Aug 16, 2016 14:09
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
[2016-08-15] MEDS: VALPROIC ACID SYRUP 250 MG/5 ML UDC PO SCH ×2 (10:22→22:32)
[2016-08-15] MEDS: ACETAMINOPHEN/HYDROcodone 325 MG/10 MG TAB PO PRN ×3 (10:22→19:08)
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
[2016-08-15] MEDS: levETIRAcetam INJ 500 MG in SODIUM CHLORIDE 0.9% INJ 100 ML IV SCH ×2 (11:39→22:31)
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
[2016-08-15] MEDS: MAGNESIUM HYDROXIDE SUSP 30 ML CUP PO SCH (20:09)
[2016-08-15] MEDS: DOCUSATE SODIUM 100 MG CAP PO SCH (20:10)
[2016-08-16] VITALS (7 sets, daily range): BP systolic 139–162; BP diastolic 81–93; PULSE 61–97; RESP 16–20; TEMP 97–99.6; O2SAT 93–97
[2016-08-16] MEDS: RESP: ALBUTEROL 2.5 MG/IPRATROPIUM 0.5 MG NEB (SCH) NEB ×3 (03:03→15:19)
[2016-08-16] MEDS: ACETAMINOPHEN/HYDROcodone 325 MG/10 MG TAB PO PRN ×5 (04:11→22:53)
[2016-08-16 04:53] LABS: BASOPHIL # 0.1 TH/MM3 (0-0.2); BASOPHIL % 0.6 % (0.0-2.0); EOSINOPHIL # 0.3 TH/MM3 (0-0.4); EOSINOPHIL % 2.7 % (0.0-4.0); HEMATOCRIT 29.3 % (39.0-51.0); HEMO FLAGS DIFF FINAL; LYMPH % 15.3 % (9.0-44.0); LYMPHOCYTE # 1.5 TH/MM3 (1.0-4.8); MEAN CELL VOLUME 84.7 FL (80.0-100.0); MEAN CORPUSCULAR HEMOGLOBIN 29.6 PG (27.0-34.0); MONO % 8.4 % (0.0-8.0); PLATELET COUNT 287 TH/MM3 (150-450); RED BLOOD COUNT 3.46 MIL/MM3 (4.50-5.90); RED CELL DISTRIBUTION WIDTH 12.8 % (11.6-17.2); WHITE BLOOD COUNT 9.6 TH/MM3 (4.0-11.0)
[2016-08-16 05:26] LABS: ALKALINE PHOSPHATASE 67 U/L (45-117); ALT (GPT) 17 U/L (12-78); ANION GAP 7 MEQ/L (5-15); AST (GOT) 14 U/L (15-37); BICARBONATE 27.9 MEQ/L (21.0-32.0); BLOOD UREA NITROGEN 12 MG/DL (7-18); CHLORIDE 105 MEQ/L (98-107); GLOMERULAR FILTRATION RATE 100 ML/MIN (>89); POTASSIUM 3.7 MEQ/L (3.5-5.1); SODIUM (NA) 140 MEQ/L (136-145); TOTAL BILIRUBIN ADULT 0.7 MG/DL (0.2-1.0)
[2016-08-16] MEDS: PIPERACIL-TAZO 3.375 GM PREMIX 50 ML IV SCH ×4 (05:36→16:19)
[2016-08-16] MEDS: MORPHINE SULFATE 4 MG/ML INJ IV PUSH PRN ×6 (05:36→20:43)
[2016-08-16] MEDS ORDERED: BISACODYL 10 MG SUPP RECTAL ONE (07:15)
[2016-08-16] MEDS ORDERED: BISACODYL EC 5 MG TABEC PO ONE (07:15)
[2016-08-16] MEDS: PANTOPRAZOLE SODIUM 40 MG VIAL IVP SCH (08:36)
[2016-08-16] MEDS: VALPROIC ACID SYRUP 250 MG/5 ML UDC PO SCH ×2 (08:38→20:41)
[2016-08-16] MEDS: DOCUSATE SODIUM 100 MG CAP PO SCH ×2 (08:38→20:41)
[2016-08-16] MEDS: SODIUM CHLORIDE 0.9% FLUSH 5 ML FLUSH IVF SCH ×2 (08:38→20:43)
[2016-08-16] MEDS: LACTULOSE SYRUP 20 GM/30 ML CUP PO SCH ×2 (08:39→08:40)
--- NOTE | 2016-08-16 09:48 | HHI.NSPN ---
(Promise Todd) Note Status Status: Progress Note (Promise Todd) Interval History Interval History 35 y/o male underwent emergent right decompressive craniectomy with evacuation of SDH and placement of ICP monitor on 08/12/16. 08/13: ICPs stable overnight, f/u CT completed, intubated and well sedated. 08/14: remains with stable ICPs, following simple commands to right side, reports slight movement with stimuli to left side 08/15: extubated, doing well, slightly conversing, giving right thumbs up. 08/16: mild headaches, sensitivity to light. oriented x 3. minimal NORM drainage overnight. (Promise Todd) Labs, Micro, & Vital Signs Results Date Time Temp Pulse Resp B/P Pulse Ox O2 Delivery O2 Flow Rate FiO2 08/16/16 04:00 97.0 64 16 139/88 94 08/16/16 00:00 99.1 61 20 142/81 93 08/15/16 20:00 99.4 63 18 134/84 93 08/15/16 19:00 Room Air 08/15/16 15:45 99.6 60 12 138/79 98 08/15/16 14:00 74 08/15/16 12:00 67 08/15/16 12:00 99.5 67 13 136/64 94 08/15/16 10:00 86 08/16/16 07:00 Intake Total 1014 ml Output Total 633 ml Balance 381 ml Constitutional Vital Signs Date Time Temp Pulse Resp B/P Pulse Ox O2 Delivery O2 Flow Rate FiO2 08/16/16 04:00 97.0 64 16 139/88 94 08/16/16 00:00 99.1 61 20 142/81 93 08/15/16 20:00 99.4 63 18 134/84 93 08/15/16 19:00 Room Air 08/15/16 15:45 99.6 60 12 138/79 98 08/15/16 14:00 74 08/15/16 12:00 67 08/15/16 12:00 99.5 67 13 136/64 94 08/15/16 10:00 86 08/16/16 07:00 Intake Total 1014 ml Output Total 633 ml Balance 381 ml (Promise Todd) Review of Systems/Exam Exam Mr. Sweet is awake, oriented x 3. Converses and follows commands. Right flap full, soft. Surgical wound well healing well, NORM drains x 2 with minimal drainage. Cranial Nerves: Pupils equal reactive to light. Right periorbital swelling Motor: Moves right side 3-4/5 and gave right thumbs up, no movement to left side to command Reflexes: Positive left Babinski response (Promise Todd) Medications Current Medications Current Medications Medications (Trade) Dose Ordered Sig/Charleen Route PRN Reason Start Time Stop Time Status Last Admin Dose Admin Enalaprilat (Vasotec Inj) 1.25 mg Q8H PRN IV SBP>180, DBP>95 08/12/16 08:45 Magnesium Hydroxide 30 ml 30 ml HS PO 08/12/16 21:00 08/15/16 20:09 Piperacillin Sod/ Tazobactam Sod (Zosyn 3.375 Gm Premix) 50 ml @ 100 mls/hr Q6H IV 08/12/16 12:00 08/16/16 05:36 IV Flush (NS Flush) 2 ml UNSCH PRN IVF FLUSH AFTER USING IV ACCESS 08/12/16 10:00 IV Flush 2 ml 2 ml BID IVF 08/12/16 21:00 08/16/16 08:38 Levetriacetam/ Sodium Chloride (Keppra Inj/NS Inj) 105 ml @ 400 mls/hr Q12H IV 08/12/16 11:00 08/15/16 22:31 Bisacodyl (Dulcolax Supp) 10 mg DAILY PRN RECTAL CONSTIPATION 08/12/16 11:00 08/15/16 18:21 Docusate Sodium (Colace) 100 mg BID PO 08/12/16 21:00 08/16/16 08:38 Pantoprazole Sodium (Protonix Inj) 40 mg DAILY IVP 08/13/16 09:00 08/16/16 08:36 Ondansetron HCl (Zofran Inj) 4 mg Q6H PRN IV NAUSEA OR VOMITING 08/12/16 11:00 08/15/16 17:35 Acetaminophen/ Hydrocodone Bitart ([place] 10-325 Mg) 1 tab Q4H PRN PO SEE LABEL COMMENTS 08/12/16 10:00 08/16/16 08:37 Acetaminophen (Tylenol) 650 mg Q4H PRN PO TEMPERATURE > 101.5 F 08/12/16 10:00 Lactulose (Lactulose Liq) 30 ml DAILY PO 08/14/16 09:00 08/16/16 08:40 Valproic Acid (Depakene Liq) 250 mg BID PO 08/14/16 10:30 08/16/16 08:38 Morphine Sulfate (Morphine Inj) 2 mg Q2H PRN IV PUSH PAIN SCALE 1 TO 10 08/14/16 15:45 08/16/16 05:36 (Promise Todd) Medical Decision Making MDM Remarks 35 y/o male TBI, s/p right decompressive craniectomy with evac of SDH on 08/12/16 , improving mental status, left hemiplegia (Promise Todd) Plan Plan Remarks cont current care, cont therapy, PT, OT, rehab efforts NORM drains dc'ed, moderate drainage noted from drain site, using sterile technique, each drain site was closed using 2-0 silk suture, pt tolerate procedure well (Promise Todd) Attending Statement The exam, history, and the medical decision-making described in the above note were completed with the assistance of the mid-level provider. I reviewed and agree with the findings presented. I attest that I had a [id number] encounter with the patient on the same day, and personally performed and documented my assessment and findings in the medical record. (Harman Pizano MD) Promise Todd Aug 16, 2016 09:48 Harman Pizano MD Aug 16, 2016 14:13
[2016-08-16] MEDS: levETIRAcetam INJ 500 MG in SODIUM CHLORIDE 0.9% INJ 100 ML IV SCH ×2 (10:22→22:52)
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
[2016-08-16] MEDS: FAMOTIDINE 20 MG TAB PO SCH (20:41)
[2016-08-16] MEDS: MAGNESIUM HYDROXIDE SUSP 30 ML CUP PO SCH (20:41)
[2016-08-17] VITALS: BP 159/83; PULSE 60; RESP 20; TEMP 98.3; O2SAT 95
[2016-08-17] MEDS: PIPERACIL-TAZO 3.375 GM PREMIX 50 ML IV SCH ×5 (00:50→23:39)
[2016-08-17] MEDS: ACETAMINOPHEN/HYDROcodone 325 MG/10 MG TAB PO PRN ×5 (03:19→20:44)
[2016-08-17 04:00] VITALS: BP 149/85; PULSE 78; RESP 18; TEMP 98.8; O2SAT 98
[2016-08-17] MEDS: MORPHINE SULFATE 4 MG/ML INJ IV PUSH PRN (05:33)
[2016-08-17 07:58] VITALS: BP 152/87; PULSE 67; RESP 18; TEMP 98.6; O2SAT 96
[2016-08-17] MEDS: SODIUM CHLORIDE 0.9% FLUSH 5 ML FLUSH IVF SCH ×2 (09:00→20:44)
[2016-08-17] MEDS: LACTULOSE SYRUP 20 GM/30 ML CUP PO SCH (09:51)
[2016-08-17] MEDS: VALPROIC ACID SYRUP 250 MG/5 ML UDC PO SCH ×2 (09:51→20:43)
[2016-08-17] MEDS: FAMOTIDINE 20 MG TAB PO SCH ×2 (09:52→20:43)
[2016-08-17] MEDS: DOCUSATE SODIUM 100 MG CAP PO SCH ×2 (09:52→20:44)
[2016-08-17 12:08] VITALS: BP 151/87; PULSE 80; RESP 18; TEMP 98.4; O2SAT 97
[2016-08-17] MEDS: levETIRAcetam INJ 500 MG in SODIUM CHLORIDE 0.9% INJ 100 ML IV SCH (12:23)
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
[2016-08-17 16:15] VITALS: BP 149/90; PULSE 74; RESP 18; TEMP 99.6; O2SAT 96
--- NOTE | 2016-08-17 16:54 | HHI.NSPN ---
History Chief Complaint: headache Interval History 35-year-old male status post right decompressive craniotomy for traumatic brain injury. Left hemiparesis Exam Results Vital Signs Date Time Temp Pulse Resp B/P Pulse Ox O2 Delivery O2 Flow Rate FiO2 08/17/16 16:15 99.6 74 18 149/90 96 08/17/16 09:57 Room Air 08/16/16 15:19 21 08/15/16 09:30 2.00 Intake and Output 08/16/16 08/16/16 08/17/16 08:00 16:00 00:00 Intake Total 219 ml Output Total 7 ml 400 ml 550 ml Balance 212 ml -400 ml -550 ml Physical Examination Mr. Sweet is awake, oriented x 3. Converses and follows commands. Right flap full, soft. Surgical wound well healing well. Cranial Nerves: Pupils equal reactive to light. Right periorbital swelling . Conjugate extraocular movements. Visual tovar to confrontation intact. Left facial paresis Motor: Right upper and lower extremity motor function mostly 4/5. Persistent left hemiparesis. Reflexes: Positive left Babinski response Medical Decision Making Impression and Plan Impression: Stable neurologic exam following traumatic brain injury. Persistent left hemiparesis. Plan: Discussed with family Discussed with family Add hydromorphone for pain control. Los Roman MD Aug 17, 2016 16:54
[2016-08-17] MEDS: HYDROmorphone HCL PF 2 MG/ML VIAL IV PUSH PRN ×2 (17:41→22:24)
[2016-08-17] MEDS: levETIRAcetam 500 MG TAB PO SCH (20:44)
[2016-08-17] MEDS: MAGNESIUM HYDROXIDE SUSP 30 ML CUP PO SCH (20:44)
[2016-08-17 20:50] VITALS: BP 165/90; PULSE 65; RESP 17; TEMP 97.8; O2SAT 96
[2016-08-18] VITALS: BP 160/89; PULSE 69; RESP 19; TEMP 97.9; O2SAT 97
[2016-08-18] MEDS: HYDROmorphone HCL PF 2 MG/ML VIAL IV PUSH PRN ×3 (02:28→10:44)
[2016-08-18 05:00] VITALS: BP 162/80; PULSE 70; RESP 18; TEMP 98.1; O2SAT 96
[2016-08-18] MEDS: PIPERACIL-TAZO 3.375 GM PREMIX 50 ML IV SCH ×2 (05:40→10:44)
[2016-08-18 08:35] VITALS: BP 147/79; PULSE 72; RESP 20; TEMP 98.2; O2SAT 92
[2016-08-18] MEDS: LACTULOSE SYRUP 20 GM/30 ML CUP PO SCH (08:47)
[2016-08-18] MEDS: VALPROIC ACID SYRUP 250 MG/5 ML UDC PO SCH ×2 (08:48→22:04)
[2016-08-18] MEDS: DOCUSATE SODIUM 100 MG CAP PO SCH ×2 (08:48→22:04)
[2016-08-18] MEDS: SODIUM CHLORIDE 0.9% FLUSH 5 ML FLUSH IVF SCH ×2 (08:48→21:00)
[2016-08-18] MEDS: levETIRAcetam 500 MG TAB PO SCH ×2 (08:48→22:04)
[2016-08-18] MEDS: FAMOTIDINE 20 MG TAB PO SCH ×2 (08:48→22:04)
[2016-08-18] MEDS: QUEtiapine FUMARATE 100 MG TAB PO SCH (09:32)
[2016-08-18] MEDS: GABAPENTIN 400 MG CAP PO SCH ×3 (09:32→17:36)
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
[2016-08-18] MEDS ORDERED: ENOXAPARIN SODIUM 40 MG/0.4 ML SYRINGE SQ SCH (12:00)
[2016-08-18 12:38] VITALS: BP 148/72; PULSE 78; RESP 20; TEMP 98.7; O2SAT 95
[2016-08-18] MEDS: ACETAMINOPHEN/HYDROcodone 325 MG/10 MG TAB PO PRN ×2 (15:22→19:14)
[2016-08-18 16:23] VITALS: BP 148/83; PULSE 83; RESP 20; TEMP 98.9; O2SAT 95
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
[2016-08-18] MEDS: SUMAtriptan SUCCINATE 50 MG TAB PO PRN (17:36)
--- NOTE | 2016-08-18 18:46 | RADRPT ---
EXAM DATE/TIME: 08/18/2016 18:10 [place] COMPARISON: CT BRAIN W/O CONTRAST, August 13, 2016, 4:26. INDICATIONS : Swelling status post craniotomy. RADIATION DOSE: 39.30 CTDIvol (mGy) MEDICAL HISTORY : None SURGICAL HISTORY : Craniotomy. ENCOUNTER: Initial ACUITY: 1 day PAIN SCALE: 5/10 LOCATION: Bilateral head TECHNIQUE: Multiple contiguous axial images were obtained of the head. Using automated exposure control and adj ustment of the mA and/or kV according to patient size, radiation dose was kept as low as reasonably a chievable to obtain optimal diagnostic quality images. FINDINGS: Stable configuration to the confluent parenchymal hemorrhage in the high convexity frontal parietal r egion, the extra axial blood at the highest convexity and the edema about the mid and high convexity. There is a similar degree of protrusion of the brain through the craniotomy defect, but there appea rs to be an increase in the thickness of the hyperdensity along the mid and anterior margin of the cr aniotomy name brain, measuring up to 7 mm in size. Hemorrhage tracking along the membrane is suspect ed. There is no evidence of midline shift. The ventricles are stable in appearance. The left hemis phere is grossly intact. There is a thin hyperdensity along the tract of the prior ICP monitor. No intraventricular blood. Posterior fossa structures are grossly intact. CONCLUSION: Increased thickness of the hyperdensity along the anterior mid membrane at the craniotomy site sugges ting increasing extra axial hemorrhage. The intraparenchymal hemorrhage in the high convexity and th e extra-axial blood at the highest convexity is stable in appearance when compared to 08/13/16. Jose Piper MD on August 18, 2016 at 18:38 Board Certified Radiologist. This report was verified electronically.
[2016-08-18 20:00] VITALS: BP 147/85; PULSE 83; RESP 20; TEMP 100; O2SAT 94
[2016-08-18] MEDS: MAGNESIUM HYDROXIDE SUSP 30 ML CUP PO SCH (21:00)
[2016-08-19] VITALS: BP 134/88; PULSE 75; RESP 20; TEMP 99.4; O2SAT 96
[2016-08-19] MEDS: ACETAMINOPHEN/HYDROcodone 325 MG/10 MG TAB PO PRN ×5 (00:34→21:06)
[2016-08-19 04:00] VITALS: BP 135/89; PULSE 76; RESP 20; TEMP 97.7; O2SAT 96
[2016-08-19 07:45] VITALS: BP 141/78; PULSE 75; RESP 18; TEMP 98.6; O2SAT 97
[2016-08-19] MEDS: DOCUSATE SODIUM 100 MG CAP PO SCH ×2 (09:00→22:30)
[2016-08-19] MEDS: SODIUM CHLORIDE 0.9% FLUSH 5 ML FLUSH IVF SCH ×2 (09:00→22:31)
[2016-08-19] MEDS: LACTULOSE SYRUP 20 GM/30 ML CUP PO SCH (09:00)
[2016-08-19] MEDS: SUMAtriptan SUCCINATE 50 MG TAB PO PRN ×2 (09:50→11:48)
[2016-08-19] MEDS: GABAPENTIN 400 MG CAP PO SCH ×3 (09:51→17:31)
[2016-08-19] MEDS: levETIRAcetam 500 MG TAB PO SCH (09:51)
[2016-08-19] MEDS: FAMOTIDINE 20 MG TAB PO SCH ×2 (09:52→22:32)
[2016-08-19] MEDS: QUEtiapine FUMARATE 100 MG TAB PO SCH (09:52)
[2016-08-19] MEDS: VALPROIC ACID SYRUP 250 MG/5 ML UDC PO SCH ×2 (09:54→22:31)
[2016-08-19 11:03] LABS: AUTOMATED NEUTROPHIL # 6.6 TH/MM3 (1.8-7.7); BASOPHIL # 0.1 TH/MM3 (0-0.2); BASOPHIL % 0.9 % (0.0-2.0); EOSINOPHIL # 0.2 TH/MM3 (0-0.4); EOSINOPHIL % 2.7 % (0.0-4.0); HEMATOCRIT 35.1 % (39.0-51.0); HEMO FLAGS DIFF FINAL; LYMPH % 14.3 % (9.0-44.0); LYMPHOCYTE # 1.3 TH/MM3 (1.0-4.8); MEAN CELL VOLUME 87.8 FL (80.0-100.0); MEAN CORPUSCULAR HEMOGLOBIN 28.9 PG (27.0-34.0); MEAN CORPUSCULAR HGB CONC 32.9 % (32.0-36.0); MONO % 9.4 % (0.0-8.0); NEUT % 72.7 % (16.0-70.0); PLATELET COUNT 372 TH/MM3 (150-450); WHITE BLOOD COUNT 9.1 TH/MM3 (4.0-11.0)
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
[2016-08-19 11:15] VITALS: BP 132/77; PULSE 78; RESP 19; TEMP 99.1; O2SAT 97
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
[2016-08-19 14:48] LABS: WESTERGREN SEDIMENTATION RATE GREATER THAN 140 mm/hr (0-15)
[2016-08-19 15:50] VITALS: BP 136/80; PULSE 93; RESP 19; TEMP 100.3; O2SAT 97
--- NOTE | 2016-08-19 17:58 | HHI.NSPN ---
History Chief Complaint: headache Interval History 08/19/16: Pt complains of headache. No nausea or vomiting. Pt follows commands well. Left hemiplegia. Review of Systems General: Negative for: fever, chills, insomnia Cardiovascular: Negative for: chest pain Gastrointestinal: Negative for: nausea, vomitting, diarrhea, constipation Exam Results Vital Signs Date Time Temp Pulse Resp B/P Pulse Ox O2 Delivery O2 Flow Rate FiO2 08/19/16 11:15 99.1 78 19 132/77 97 08/18/16 21:12 Room Air 08/16/16 15:19 21 08/15/16 09:30 2.00 Intake and Output 08/18/16 08/18/16 08/19/16 08:00 16:00 00:00 Intake Total 610 ml 240 ml 240 ml Output Total 400 ml 1025 ml Balance 210 ml 240 ml -785 ml Physical Examination Resp: CTA bilaterally Heart: NSR no murmurs Abd: Soft positive bs Skin: Incision clean and dry. No signs of infection Muscle: Left hemiplegia. Moves right side with some difficulty with coordination of RUE and right dorsiflexion weakness ankle. Neuro: Pt awake and alert. Follows commands well. Speech slurred from his left hemiparesis but appropriate. Pupils equal. Lab, Micro, Other Results Last Impressions Head CT 08/18/16 0000 Signed Impressions: Service Date/Time: Thursday, August 18, 2016 18:10 - CONCLUSION: Increased thickness of the hyperdensity along the anterior mid membrane at the craniotomy site suggesting increasing extra axial hemorrhage. The intraparenchymal hemorrhage in the high convexity and the extra-axial blood at the highest convexity is stable in appearance when compared to 08/13/16. Jose Piper MD Chest X-Ray 08/15/16 0600 Signed Impressions: Service Date/Time: July 04:27 - CONCLUSION: Normal examination. No infiltrate or mass Nikolai Small MD Thoracic Spine CT 08/12/16 0324 Signed Impressions: Service Date/Time: Friday, August 12, 2016 04:30 - CONCLUSION: Normal examination except marked intervertebral disc space narrowing at T6-7. Nikolai Small MD Shoulder X-Ray 08/12/16323 Signed Impressions: Service Date/Time: Friday, August 12, 2016 03:49 - CONCLUSION: Unremarkable examination of the left shoulder. Nikolai Small MD Pelvis X-Ray 08/12/16323 Signed Impressions: Service Date/Time: Friday, August 12, 2016 03:46 - CONCLUSION: Unremarkable examination of the pelvis. Nikolai Small MD Lumbar Spine CT 08/12/16323 Signed Impressions: Service Date/Time: Friday, August 12, 2016 04:30 - CONCLUSION: Normal examination except for degenerative disease at L5-S1 with discogenic sclerosis and vacuum phenomenon. Nikolai Small MD Femur X-Ray 08/12/16323 Signed Impressions: Service Date/Time: Friday, August 12, 2016 03:53 - CONCLUSION: Unremarkable examination of the left femur. Nikolai Small MD Elbow X-Ray 08/12/16323 Signed Impressions: Service Date/Time: Friday, August 12, 2016 03:37 - CONCLUSION: Unremarkable examination of the left elbow. Nikolai Small MD Chest CT 08/12/16323 Signed Impressions: Service Date/Time: Friday, August 12, 2016 04:28 - CONCLUSION: Normal examination. Nikolai Small MD Cervical Spine CT 08/12/16323 Signed Impressions: Service Date/Time: Friday, August 12, 2016 04:22 - CONCLUSION: Normal examination. Nikolai Small MD Abdomen/Pelvis CT 08/12/16323 Signed Impressions: Service Date/Time: Friday, August 12, 2016 04:28 - CONCLUSION: Normal examination. Nikolai Small MD Laboratory Tests Test 08/19/16 13:48 White Blood Count 9.1 TH/MM3 Red Blood Count 4.00 MIL/MM3 Hemoglobin 11.5 GM/DL Hematocrit 35.1 % Mean Corpuscular Volume 87.8 FL Mean Corpuscular Hemoglobin 28.9 PG Mean Corpuscular Hemoglobin 32.9 % Concent Red Cell Distribution Width 13.0 % Platelet Count 372 TH/MM3 Mean Platelet Volume 7.5 FL Neutrophils (%) (Auto) 72.7 % Lymphocytes (%) (Auto) 14.3 % Monocytes (%) (Auto) 9.4 % Eosinophils (%) (Auto) 2.7 % Basophils (%) (Auto) 0.9 % Neutrophils # (Auto) 6.6 TH/MM3 Lymphocytes # (Auto) 1.3 TH/MM3 Monocytes # (Auto) 0.9 TH/MM3 Eosinophils # (Auto) 0.2 TH/MM3 Basophils # (Auto) 0.1 TH/MM3 CBC Comment DIFF FINAL Differential Comment Erythrocyte Sedimentation Rate GREATER THAN 140 mm/hr 08/18/16 08/18/16 08/19/16 15:00 23:00 07:00 Intake Total 240 ml 240 ml Output Total 1025 ml Balance 240 ml -785 ml Intake Oral 240 ml 240 ml Output Urine Total 1025 ml # Voids 3 0 # Bowel Movements 2 2 1 Medical Decision Making Impression and Plan A: 35 y/o M s/p right craniotomy for severe TBI. Left hemiplegia. P: Continue to monitor Continue with Rehab efforts Rehab placement. Mitchell Rivera Aug 19, 2016 17:58
[2016-08-19 20:00] VITALS: BP 129/80; PULSE 99; RESP 20; TEMP 99.7; O2SAT 97
[2016-08-19] MEDS: MAGNESIUM HYDROXIDE SUSP 30 ML CUP PO SCH (22:30)
[2016-08-19] MEDS: traZODone HCL 50 MG TAB PO SCH (22:31)
[2016-08-20] VITALS (7 sets, daily range): BP systolic 123–146; BP diastolic 69–86; PULSE 70–98; RESP 14–21; TEMP 96–100.3; O2SAT 94–98
[2016-08-20] MEDS: ACETAMINOPHEN/HYDROcodone 325 MG/10 MG TAB PO PRN ×5 (03:15→23:18)
[2016-08-20] MEDS: VALPROIC ACID SYRUP 250 MG/5 ML UDC PO SCH ×2 (09:36→21:39)
[2016-08-20] MEDS: FAMOTIDINE 20 MG TAB PO SCH ×2 (09:38→21:39)
[2016-08-20] MEDS: DOCUSATE SODIUM 100 MG CAP PO SCH ×2 (09:38→21:39)
[2016-08-20] MEDS: QUEtiapine FUMARATE 100 MG TAB PO SCH (09:38)
[2016-08-20] MEDS: GABAPENTIN 400 MG CAP PO SCH ×3 (09:38→18:41)
[2016-08-20] MEDS: SODIUM CHLORIDE 0.9% FLUSH 5 ML FLUSH IVF SCH ×2 (09:38→21:00)
[2016-08-20] MEDS: LACTULOSE SYRUP 20 GM/30 ML CUP PO SCH (09:39)
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
[2016-08-20] MEDS: SUMAtriptan SUCCINATE 50 MG TAB PO PRN (11:27)
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
[2016-08-20] MEDS: ACETAMINOPHEN 325 MG TAB PO PRN (15:40)
--- NOTE | 2016-08-20 16:31 | HHI.NSPN ---
Note Status Status: Progress Note Interval History Interval History 08/20: Patient doing well. Working with PT & OT. Still w/left hemiparesis. Labs, Micro, & Vital Signs Constitutional Vital Signs Date Time Temp Pulse Resp B/P Pulse Ox O2 Delivery O2 Flow Rate FiO2 08/20/16 15:58 100.3 98 14 133/86 98 08/20/16 14:44 16 08/20/16 12:39 98.6 91 18 140/83 96 08/20/16 12:27 17 08/20/16 08:26 96.0 70 16 136/79 94 08/20/16 05:47 97.6 96 20 123/80 96 08/20/16 01:05 98.5 78 17 146/69 94 08/19/16 20:00 99.7 99 20 129/80 97 08/19/16 17:51 Room Air 08/20/16 07:00 Intake Total 720 ml Output Total 1200 ml Balance -480 ml Review of Systems/Exam ROS Constitutional: Unable to sleep at night. Resp: Denies any shortness of breath or productive cough. Cardiac: Denies any chest pain, palpitations or irregular heart beat. GI: Denies any abdominal pain, nausea or vomiting. Neuro: With headache, decreased sensation on left and unable to move left side. Exam Constitutional: Awake, watching DVD w/family, flat affect. HEENT: Well approximated right-sided craniotomy incision w/stu intact, no evident drainage, erythema or streaking noted, mildly TTP. Resp: CTAB w/o W/R/R, equal excursion, non-laboured, on RA. CV: S1S2 w/RRR w/o M/G/R, radial & pedal pulses 2+ bilaterally, cap refill < 2 sec. GI: Abdomen soft, nontender, positive bowel sounds. Extremities: Normal extremities, able to move RUE & RLE, but w/o movement on left side. No evident deformity, discolouration or edema. Neuro: AAOx3. Speech clear & appropriate. Follows commands. Sensation intact to light touch to right side extremities but feels "creepy" on to left. Motor strength 4/5 to RUE & RLE except for plantar flexion & extension 2/5, no movement of LUE or LLE. Facial droop on left side, decreased eyebrow arch & shoulder shrug, decreased sensation to left side of face. PERRLA, EOM intact. Medications Current Medications Current Medications Medications (Trade) Dose Ordered Sig/Charleen Route Start Time Stop Time Status Last Admin (Vasotec Inj) 1.25 mg Q8H PRN IV 08/12/16 08:45 (Milk Of Magnesia Liq) 30 ml HS PO 08/12/16 21:00 08/15/16 20:09 (NS Flush) 2 ml UNSCH PRN IVF 08/12/16 10:00 (NS Flush) 2 ml BID IVF 08/12/16 21:00 08/20/16 09:38 (Dulcolax Supp) 10 mg DAILY PRN RECTAL 08/12/16 11:00 08/15/16 18:21 (Colace) 100 mg BID PO 08/12/16 21:00 08/18/16 22:04 (Zofran Inj) 4 mg Q6H PRN IV 08/12/16 11:00 08/15/16 17:35 ([place] 10-325 Mg) 1 tab Q4H PRN PO 08/12/16 10:00 08/20/16 13:44 (Tylenol) 650 mg Q4H PRN PO 08/12/16 10:00 08/20/16 15:40 (Lactulose Liq) 30 ml DAILY PO 08/14/16 09:00 08/18/16 08:47 (Depakene Liq) 250 mg BID PO 08/14/16 10:30 08/20/16 09:36 (Pepcid) 20 mg BID PO 08/16/16 21:00 08/20/16 09:38 (Neurontin) 400 mg TID PO 08/18/16 09:15 08/20/16 12:31 (Imitrex) 50 mg DAILY PRN PO 08/18/16 09:15 08/20/16 11:27 (SEROquel) 100 mg DAILY PO 08/18/16 09:15 08/20/16 09:38 (Lovenox Inj) 40 mg Q24H SQ 08/18/16 12:00 Hold 08/18/16 12:39 (Desyrel) 50 mg HS PO 08/19/16 21:00 08/19/16 22:31 Medical Decision Making [facility] Remarks Impression: 35 y/o M s/p right craniotomy for severe TBI. Stable neurologic exam following traumatic brain injury. Persistent left hemiparesis. Plan Plan Remarks Patient appears neurologically stable. Continue to monitor. Continue with rehab/therapy. Rehab placement. Kevin Casey Aug 20, 2016 16:31 (Milk Of Magnesia Liq) 30 ml HS PO 08/12/16 21:00 08/15/16 20:09 (NS Flush) 2 ml UNSCH PRN IVF 08/12/16 10:00 (NS Flush) 2 ml BID IVF 08/12/16 21:00 08/20/16 09:38 (Dulcolax Supp) 10 mg DAILY PRN RECTAL 08/12/16 11:00 08/15/16 18:21 (Colace) 100 mg BID PO 08/12/16 21:00 08/18/16 22:04 (Zofran Inj) 4 mg Q6H PRN IV 08/12/16 11:00 08/15/16 17:35 ([place] 10-325 Mg) 1 tab Q4H PRN PO 08/12/16 10:00 08/20/16 13:44 (Tylenol) 650 mg Q4H PRN PO 08/12/16 10:00 08/20/16 15:40 (Lactulose Liq) 30 ml DAILY PO 08/14/16 09:00 08/18/16 08:47 (Depakene Liq) 250 mg BID PO 08/14/16 10:30 08/20/16 09:36 (Pepcid) 20 mg BID PO 08/16/16 21:00 08/20/16 09:38 (Neurontin) 400 mg TID PO 08/18/16 09:15 08/20/16 12:31 (Imitrex) 50 mg DAILY PRN PO 08/18/16 09:15 08/20/16 11:27 (SEROquel) 100 mg DAILY PO 08/18/16 09:15 08/20/16 09:38 (Lovenox Inj) 40 mg Q24H SQ 08/18/16 12:00 Hold 08/18/16 12:39 (Desyrel) 50 mg HS PO 08/19/16 21:00 08/19/16 22:31 Medical Decision Making MDM Remarks Impression: 35 y/o M s/p right craniotomy for severe TBI. Stable neurologic exam following traumatic brain injury. Persistent left hemiparesis. Plan Plan Remarks Patient appears neurologically stable. Continue to monitor. Continue with rehab/therapy. Rehab placement. Kevin Casey Aug 20, 2016 16:31
[2016-08-20] MEDS: MAGNESIUM HYDROXIDE SUSP 30 ML CUP PO SCH (21:00)
[2016-08-20] MEDS: traZODone HCL 50 MG TAB PO SCH (21:39)
[2016-08-21 00:05] VITALS: BP 118/75; PULSE 72; RESP 20; TEMP 99.2; O2SAT 94
[2016-08-21] MEDS: ACETAMINOPHEN/HYDROcodone 325 MG/10 MG TAB PO PRN ×4 (03:45→21:10)
[2016-08-21 06:21] VITALS: BP 120/81; PULSE 69; RESP 21; TEMP 98.1; O2SAT 94
[2016-08-21] MEDS: DOCUSATE SODIUM 100 MG CAP PO SCH ×2 (07:56→21:10)
[2016-08-21] MEDS: SODIUM CHLORIDE 0.9% FLUSH 5 ML FLUSH IVF SCH ×2 (07:56→21:00)
[2016-08-21] MEDS: SUMAtriptan SUCCINATE 50 MG TAB PO PRN ×2 (07:56→12:23)
[2016-08-21] MEDS: QUEtiapine FUMARATE 100 MG TAB PO SCH (07:57)
[2016-08-21] MEDS: VALPROIC ACID SYRUP 250 MG/5 ML UDC PO SCH ×2 (07:57→21:10)
[2016-08-21] MEDS: LACTULOSE SYRUP 20 GM/30 ML CUP PO SCH (07:57)
[2016-08-21] MEDS: FAMOTIDINE 20 MG TAB PO SCH ×2 (07:57→21:10)
[2016-08-21] MEDS: GABAPENTIN 400 MG CAP PO SCH ×3 (07:57→17:10)
[2016-08-21 08:00] VITALS: BP 130/86; PULSE 70; RESP 20; TEMP 97.9; O2SAT 98
[2016-08-21 12:00] VITALS: BP 136/80; PULSE 111; RESP 18; TEMP 96.5; O2SAT 94
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
[2016-08-21 16:00] VITALS: BP 120/75; PULSE 86; RESP 17; TEMP 98.9; O2SAT 96
[2016-08-21] MEDS: ENOXAPARIN SODIUM 40 MG/0.4 ML SYRINGE SQ SCH (17:10)
--- NOTE | 2016-08-21 17:48 | HHI.NSPN ---
History Chief Complaint: headache Interval History 08/19/16: Pt complains of headache. No nausea or vomiting. Pt follows commands well. Left hemiplegia. 08/21/16: Pt complains of headaches. No nausea or vomiting. Follows commands well. Left hemiplegia Review of Systems General: Negative for: fever, chills, insomnia Respiratory: Negative for: shortness of breath, cough, sputum Cardiovascular: Negative for: chest pain Gastrointestinal: Negative for: nausea, vomitting, diarrhea, constipation Exam Results Vital Signs Date Time Temp Pulse Resp B/P Pulse Ox O2 Delivery O2 Flow Rate FiO2 08/21/16 16:00 98.9 86 17 120/75 96 08/21/16 07:00 Room Air 08/20/16 19:00 21 Intake and Output 08/20/16 08/20/16 08/21/16 08:00 16:00 00:00 Intake Total 360 ml Output Total 700 ml 300 ml Balance -700 ml 60 ml Physical Examination Constitutional: Awake and alert. HEENT: Well approximated right-sided craniotomy incision w/stu intact, no evident drainage, erythema or streaking noted, mildly Resp: CTA bilaterally. CV: S1S2 w/RRR No murmurs GI: Abdomen soft, nontender, positive bowel sounds. Muscle: Moves right side well. Left dense hemiparesis. Neuro: AAOx3. Speech clear & appropriate. Follows commands. Lab, Micro, Other Results Last Impressions Head CT 08/18/16 0000 Signed Impressions: Service Date/Time: Thursday, August 18, 2016 18:10 - CONCLUSION: Increased thickness of the hyperdensity along the anterior mid membrane at the craniotomy site suggesting increasing extra axial hemorrhage. The intraparenchymal hemorrhage in the high convexity and the extra-axial blood at the highest convexity is stable in appearance when compared to 08/13/16. Jose Piper MD Chest X-Ray 08/15/16 0600 Signed Impressions: Service Date/Time: July 04:27 - CONCLUSION: Normal examination. No infiltrate or mass Nikolai Small MD Thoracic Spine CT 08/12/164 Signed Impressions: Service Date/Time: Friday, August 12, 2016 04:30 - CONCLUSION: Normal examination except marked intervertebral disc space narrowing at T6-7. Nikolai Small MD Shoulder X-Ray 08/12/16323 Signed Impressions: Service Date/Time: Friday, August 12, 2016 03:49 - CONCLUSION: Unremarkable examination of the left shoulder. Nikolai Small MD Pelvis X-Ray 08/12/16323 Signed Impressions: Service Date/Time: Friday, August 12, 2016 03:46 - CONCLUSION: Unremarkable examination of the pelvis. Nikolai Small MD Lumbar Spine CT 08/12/16323 Signed Impressions: Service Date/Time: Friday, August 12, 2016 04:30 - CONCLUSION: Normal examination except for degenerative disease at L5-S1 with discogenic sclerosis and vacuum phenomenon. Nikolai Small MD Femur X-Ray 08/12/16323 Signed Impressions: Service Date/Time: Friday, August 12, 2016 03:53 - CONCLUSION: Unremarkable examination of the left femur. Nikolai Small MD Elbow X-Ray 08/12/16323 Signed Impressions: Service Date/Time: Friday, August 12, 2016 03:37 - CONCLUSION: Unremarkable examination of the left elbow. Nikolai Small MD Chest CT 08/12/16323 Signed Impressions: Service Date/Time: Friday, August 12, 2016 04:28 - CONCLUSION: Normal examination. Nikolai Small MD Cervical Spine CT 08/12/16323 Signed Impressions: Service Date/Time: Friday, August 12, 2016 04:22 - CONCLUSION: Normal examination. Nikolai Small MD Abdomen/Pelvis CT 08/12/16323 Signed Impressions: Service Date/Time: Friday, August 12, 2016 04:28 - CONCLUSION: Normal examination. Nikolai Small MD 08/20/16 08/20/16 08/21/16 15:00 23:00 07:00 Intake Total 360 ml Output Total 300 ml 640 ml Balance 60 ml -640 ml Intake Oral 360 ml Output Urine Total 300 ml 640 ml # Voids 1 # Bowel Movements 1 0 Medical Decision Making Impression and Plan A: 35 y/o M s/p right craniotomy for severe TBI. Left hemiplegia. P: Continue to monitor Continue with Rehab efforts Rehab placement. Mitchell Rivera Aug 21, 2016 17:48
[2016-08-21] MEDS: MAGNESIUM HYDROXIDE SUSP 30 ML CUP PO SCH (21:00)
[2016-08-21] MEDS: traZODone HCL 100 MG TAB PO SCH (21:10)
[2016-08-21 21:15] VITALS: BP 136/76; PULSE 95; RESP 18; TEMP 98.2; O2SAT 94
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
[2016-08-22 00:30] VITALS: BP 134/69; PULSE 89; RESP 19; TEMP 98.1; O2SAT 95
[2016-08-22] MEDS: ACETAMINOPHEN/HYDROcodone 325 MG/10 MG TAB PO PRN ×6 (01:40→22:17)
[2016-08-22 04:40] VITALS: BP 137/90; PULSE 77; RESP 19; TEMP 97; O2SAT 95
[2016-08-22 08:00] VITALS: BP 128/76; PULSE 62; RESP 17; TEMP 97.1; O2SAT 96
[2016-08-22] MEDS: QUEtiapine FUMARATE 100 MG TAB PO SCH (08:49)
[2016-08-22] MEDS: VALPROIC ACID SYRUP 250 MG/5 ML UDC PO SCH ×2 (08:49→22:17)
[2016-08-22] MEDS: GABAPENTIN 400 MG CAP PO SCH ×3 (08:49→17:09)
[2016-08-22] MEDS: FAMOTIDINE 20 MG TAB PO SCH ×2 (08:49→22:17)
[2016-08-22] MEDS: DOCUSATE SODIUM 100 MG CAP PO SCH ×2 (08:50→21:00)
[2016-08-22] MEDS: SODIUM CHLORIDE 0.9% FLUSH 5 ML FLUSH IVF SCH ×2 (08:50→21:00)
[2016-08-22] MEDS: LACTULOSE SYRUP 20 GM/30 ML CUP PO SCH (08:50)
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
[2016-08-22 12:00] VITALS: BP 134/87; PULSE 80; RESP 17; TEMP 98.7; O2SAT 94
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
[2016-08-22 16:00] VITALS: BP 119/69; PULSE 81; RESP 18; TEMP 98; O2SAT 95
--- NOTE | 2016-08-22 16:32 | HHI.NSPN ---
(Kevin Casey) Note Status Status: Progress Note (Kevin Casey) Interval History Interval History 08/20: Patient doing well. Working with PT & OT. Still w/left hemiparesis. 08/22: Patient awake & alert. With flat affect. States still not able to move left side. He is doing "as good as possible." He reports he is to go to rehab on 08/26. (Kevin Casey) Labs, Micro, & Vital Signs Constitutional Vital Signs Date Time Temp Pulse Resp B/P Pulse Ox O2 Delivery O2 Flow Rate FiO2 08/22/16 12:00 98.7 80 17 134/87 94 08/22/16 08:00 97.1 62 17 128/76 96 08/22/16 04:40 97.0 77 19 137/90 95 08/22/16 02:08 Room Air 08/22/16 00:30 98.1 89 19 134/69 95 08/21/16 21:15 98.2 95 18 136/76 94 08/22/16 07:00 Intake Total 1710 ml Output Total 2275 ml Balance -565 ml (Kevin Casey) Review of Systems/Exam ROS Resp: Denies any shortness of breath or productive cough. Cardiac: Denies any chest pain, palpitations or irregular heart beat. GI: Denies any abdominal pain, nausea or vomiting. Neuro: Still with headache, sensation on left side is still "creepy" and unable to move it. Exam Constitutional: Awake and alert. HEENT: Well approximated right-sided craniotomy incision w/stu intact, no evident drainage, erythema or streaking noted, mildly tender. Resp: CTAB w/o W/R/R, equal excursion, nonlaboured, on RA. CV: S1S2 w/RRR w/o M/G/R GI: Abdomen soft, nontender, positive bowel sounds. Muscle: Moves right side well. Left dense hemiparesis. Neuro: AAOx3. Speech clear & appropriate. Follows commands. (Kevin Casey) Medications Current Medications Current Medications Medications (Trade) Dose Ordered Sig/Charleen Route Start Time Stop Time Status Last Admin (Vasotec Inj) 1.25 mg Q8H PRN IV 08/12/16 08:45 (Milk Of Magnesia Liq) 30 ml HS PO 08/12/16 21:00 08/15/16 20:09 (NS Flush) 2 ml UNSCH PRN IVF 08/12/16 10:00 (NS Flush) 2 ml BID IVF 08/12/16 21:00 08/22/16 08:50 (Dulcolax Supp) 10 mg DAILY PRN RECTAL 08/12/16 11:00 08/15/16 18:21 (Colace) 100 mg BID PO 08/12/16 21:00 08/22/16 08:50 (Zofran Inj) 4 mg Q6H PRN IV 08/12/16 11:00 08/15/16 17:35 (Trinity 10-325 Mg) 1 tab Q4H PRN PO 08/12/16 10:00 08/22/16 13:39 (Tylenol) 650 mg Q4H PRN PO 08/12/16 10:00 08/20/16 15:40 (Lactulose Liq) 30 ml DAILY PO 08/14/16 09:00 08/21/16 07:57 (Depakene Liq) 250 mg BID PO 08/14/16 10:30 08/22/16 08:49 (Pepcid) 20 mg BID PO 08/16/16 21:00 08/22/16 08:49 (Neurontin) 400 mg TID PO 08/18/16 09:15 08/22/16 12:33 (Imitrex) 50 mg DAILY PRN PO 08/18/16 09:15 08/21/16 12:23 (SEROquel) 100 mg DAILY PO 08/18/16 09:15 08/22/16 08:49 (Desyrel) 100 mg HS PO 08/21/16 21:00 08/21/16 21:10 (Lovenox Inj) 40 mg Q24H SQ 08/21/16 16:00 08/21/16 17:10 (Kevin Casey) Medical Decision Making MDM Remarks Impression: 35 y/o M s/p right craniotomy for severe TBI. Stable neurologic exam following traumatic brain injury. Persistent left hemiparesis. (Kevin Casey) Plan Plan Remarks Patient appears neurologically stable. Continue to monitor. Continue with rehab/therapy. Rehab placement. (Kevin Casey) Attending Statement The exam, history, and the medical decision-making described in the above note were completed with the assistance of the mid-level provider. I reviewed and agree with the findings presented. I attest that I had a [id number] encounter with the patient on the same day, and personally performed and documented my assessment and findings in the medical record. D/W patient. My exam as above (Los Roman MD) Kevin Casey Aug 22, 2016 16:32 Los Roman MD Oct 29, 2016 15:48
[2016-08-22] MEDS: SUMAtriptan SUCCINATE 50 MG TAB PO PRN (17:09)
[2016-08-22] MEDS: ENOXAPARIN SODIUM 40 MG/0.4 ML SYRINGE SQ SCH (17:09)
[2016-08-22 20:15] VITALS: BP 126/70; PULSE 85; RESP 17; TEMP 98.6; O2SAT 96
[2016-08-22] MEDS: MAGNESIUM HYDROXIDE SUSP 30 ML CUP PO SCH (21:00)
[2016-08-22] MEDS: traZODone HCL 100 MG TAB PO SCH (22:17)
[2016-08-23] VITALS: BP 125/75; PULSE 80; RESP 18; TEMP 98.1; O2SAT 97
[2016-08-23] MEDS: ACETAMINOPHEN/HYDROcodone 325 MG/10 MG TAB PO PRN ×5 (02:27→21:08)
[2016-08-23 05:30] VITALS: BP 128/78; PULSE 88; RESP 19; TEMP 98; O2SAT 98
[2016-08-23] MEDS: DOCUSATE SODIUM 100 MG CAP PO SCH ×2 (08:47→21:08)
[2016-08-23] MEDS: GABAPENTIN 400 MG CAP PO SCH ×3 (08:47→17:03)
[2016-08-23] MEDS: SODIUM CHLORIDE 0.9% FLUSH 5 ML FLUSH IVF SCH ×2 (08:47→21:00)
[2016-08-23] MEDS: QUEtiapine FUMARATE 100 MG TAB PO SCH (08:48)
[2016-08-23] MEDS: VALPROIC ACID SYRUP 250 MG/5 ML UDC PO SCH ×2 (08:48→21:07)
[2016-08-23] MEDS: FAMOTIDINE 20 MG TAB PO SCH ×2 (08:48→21:08)
[2016-08-23] MEDS: LACTULOSE SYRUP 20 GM/30 ML CUP PO SCH (08:48)
[2016-08-23 09:09] VITALS: BP 122/71; PULSE 70; RESP 16; TEMP 98; O2SAT 94
--- NOTE | 2016-08-23 11:40 | HHI.NSPN ---
History Chief Complaint: headache Interval History 08/20: Patient doing well. Working with PT & OT. Still w/left hemiparesis. 08/22: Patient awake & alert. With flat affect. States still not able to move left side. He is doing "as good as possible." He reports he is to go to rehab on 08/26. 08/22 Stable. Possible rehab placement next week. Exam Results Vital Signs Date Time Temp Pulse Resp B/P Pulse Ox O2 Delivery O2 Flow Rate FiO2 08/23/16 09:09 98.0 70 16 122/71 94 08/23/16 00:05 Room Air 08/20/16 19:00 21 Intake and Output 08/22/16 08/22/16 08/23/16 08:00 16:00 00:00 Intake Total 850 ml 720 ml 800 ml Output Total 975 ml 700 ml 600 ml Balance -125 ml 20 ml 200 ml Physical Examination Constitutional: Awake and alert. HEENT: Well approximated right-sided craniotomy incision w/stu intact, no evident drainage, erythema or streaking noted, mildly tender. Flap is soft. Resp: CTAB w/o W/R/R, equal excursion, nonlaboured, on RA. CV: S1S2 w/RRR w/o M/G/R GI: Abdomen soft, nontender, positive bowel sounds. Muscle: Right UE and LE 5/5. Left hemiplegia Neuro: AAOx3. Speech clear & appropriate. Follows commands. Lab, Micro, Other Results Current Medications Medications (Trade) Dose Ordered Sig/Charleen Route Start Time Stop Time Status Last Admin (Vasotec Inj) 1.25 mg Q8H PRN IV 08/12/16 08:45 (Milk Of Magnesia Liq) 30 ml HS PO 08/12/16 21:00 08/15/16 20:09 (NS Flush) 2 ml UNSCH PRN IVF 08/12/16 10:00 (NS Flush) 2 ml BID IVF 08/12/16 21:00 08/23/16 08:47 (Dulcolax Supp) 10 mg DAILY PRN RECTAL 08/12/16 11:00 08/15/16 18:21 (Colace) 100 mg BID PO 08/12/16 21:00 08/22/16 08:50 (Zofran Inj) 4 mg Q6H PRN IV 08/12/16 11:00 08/15/16 17:35 ([place] 10-325 Mg) 1 tab Q4H PRN PO 08/12/16 10:00 08/23/16 10:57 (Tylenol) 650 mg Q4H PRN PO 08/12/16 10:00 08/20/16 15:40 (Lactulose Liq) 30 ml DAILY PO 08/14/16 09:00 08/21/16 07:57 (Depakene Liq) 250 mg BID PO 08/14/16 10:30 08/23/16 08:48 (Pepcid) 20 mg BID PO 08/16/16 21:00 08/23/16 08:48 (Neurontin) 400 mg TID PO 08/18/16 09:15 08/23/16 08:47 (Imitrex) 50 mg DAILY PRN PO 08/18/16 09:15 08/22/16 17:09 (SEROquel) 100 mg DAILY PO 08/18/16 09:15 08/23/16 08:48 (Desyrel) 100 mg HS PO 08/21/16 21:00 08/22/16 22:17 (Lovenox Inj) 40 mg Q24H SQ 08/21/16 16:00 08/22/16 17:09 (Habitrol 21 Mg Patch.24 Hr) 1 patch DAILY T-DERMAL 08/23/16 11:15 UNV Miscellaneous Information 1 DAILY T-DERMAL 08/23/16 11:15 UNV Medical Decision Making Impression and Plan Impression: 35 y/o M s/p right craniotomy for severe TBI. Stable neurologic exam following traumatic brain injury. Persistent left hemiparesis. Plan Plan Remarks Patient appears neurologically stable. Continue to monitor. Continue Depakote for seizure prophylaxis. Continue with rehab/therapy. Rehab placement pending. Yovani Garnica MD Aug 23, 2016 11:40
[2016-08-23] MEDS: NICOTINE 21 MG/24 HR PATCH T-DERMAL SCH (12:12)
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
[2016-08-23 12:45] VITALS: BP 122/75; PULSE 101; RESP 16; TEMP 97.5; O2SAT 99
[2016-08-23] MEDS: SUMAtriptan SUCCINATE 50 MG TAB PO PRN (13:58)
[2016-08-23] MEDS: ENOXAPARIN SODIUM 40 MG/0.4 ML SYRINGE SQ SCH (17:03)
[2016-08-23 17:25] VITALS: BP 134/83; PULSE 88; RESP 16; TEMP 97.6; O2SAT 96
[2016-08-23 20:00] VITALS: BP 141/80; PULSE 100; RESP 20; TEMP 99.3; O2SAT 100
[2016-08-23] MEDS: MAGNESIUM HYDROXIDE SUSP 30 ML CUP PO SCH (21:07)
[2016-08-23] MEDS: traZODone HCL 100 MG TAB PO SCH (21:08)
[2016-08-24] VITALS: BP 124/74; PULSE 78; RESP 20; TEMP 98.8; O2SAT 94
[2016-08-24 04:00] VITALS: BP 107/66; PULSE 75; RESP 20; TEMP 98; O2SAT 95
[2016-08-24] MEDS: ACETAMINOPHEN/HYDROcodone 325 MG/10 MG TAB PO PRN ×4 (08:37→21:14)
[2016-08-24] MEDS: DOCUSATE SODIUM 100 MG CAP PO SCH ×2 (08:37→21:11)
[2016-08-24] MEDS: FAMOTIDINE 20 MG TAB PO SCH ×2 (08:37→21:11)
[2016-08-24] MEDS: LACTULOSE SYRUP 20 GM/30 ML CUP PO SCH (08:37)
[2016-08-24] MEDS: NICOTINE 21 MG/24 HR PATCH T-DERMAL SCH (08:38)
[2016-08-24] MEDS: QUEtiapine FUMARATE 100 MG TAB PO SCH (08:38)
[2016-08-24] MEDS: SODIUM CHLORIDE 0.9% FLUSH 5 ML FLUSH IVF SCH ×2 (08:38→21:00)
[2016-08-24] MEDS: GABAPENTIN 400 MG CAP PO SCH ×3 (08:38→17:12)
[2016-08-24] MEDS: REMOVE OLD PATCH T-DERMAL SCH (08:38)
[2016-08-24] MEDS: VALPROIC ACID SYRUP 250 MG/5 ML UDC PO SCH ×2 (08:44→21:12)
[2016-08-24 09:06] VITALS: BP 131/75; PULSE 76; RESP 16; TEMP 97; O2SAT 94
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
[2016-08-24 12:16] VITALS: BP 132/80; PULSE 88; RESP 16; TEMP 98.2; O2SAT 95
[2016-08-24] MEDS: SUMAtriptan SUCCINATE 50 MG TAB PO PRN (15:48)
[2016-08-24] MEDS: ENOXAPARIN SODIUM 40 MG/0.4 ML SYRINGE SQ SCH (15:48)
[2016-08-24 16:38] VITALS: BP 122/73; PULSE 99; RESP 16; TEMP 99.8; O2SAT 95
[2016-08-24 20:00] VITALS: BP 149/89; PULSE 88; RESP 18; TEMP 98.7; O2SAT 98
[2016-08-24] MEDS: MAGNESIUM HYDROXIDE SUSP 30 ML CUP PO SCH (21:00)
[2016-08-24] MEDS: traZODone HCL 100 MG TAB PO SCH (21:12)
[2016-08-25 03:52] VITALS: BP 128/73; PULSE 82; RESP 18; TEMP 97.9; O2SAT 96
[2016-08-25] MEDS: SUMAtriptan SUCCINATE 50 MG TAB PO PRN (04:14)
[2016-08-25 05:34] LABS: AUTOMATED NEUTROPHIL # 4.1 TH/MM3 (1.8-7.7); BASOPHIL # 0.1 TH/MM3 (0-0.2); BASOPHIL % 1.2 % (0.0-2.0); EOSINOPHIL # 0.6 TH/MM3 (0-0.4); EOSINOPHIL % 7.9 % (0.0-4.0); HEMATOCRIT 31.9 % (39.0-51.0); HEMO FLAGS DIFF FINAL; LYMPH % 25.6 % (9.0-44.0); LYMPHOCYTE # 1.9 TH/MM3 (1.0-4.8); MEAN CELL VOLUME 85.1 FL (80.0-100.0); MEAN CORPUSCULAR HEMOGLOBIN 28.2 PG (27.0-34.0); MEAN CORPUSCULAR HGB CONC 33.2 % (32.0-36.0); MONO % 10.8 % (0.0-8.0); NEUT % 54.5 % (16.0-70.0); PLATELET COUNT 366 TH/MM3 (150-450); RED BLOOD COUNT 3.75 MIL/MM3 (4.50-5.90); RED CELL DISTRIBUTION WIDTH 12.4 % (11.6-17.2); WHITE BLOOD COUNT 7.5 TH/MM3 (4.0-11.0)
[2016-08-25 05:49] LABS: ALKALINE PHOSPHATASE 78 U/L (45-117); ALT (GPT) 32 U/L (12-78); ANION GAP 9 MEQ/L (5-15); AST (GOT) 19 U/L (15-37); BICARBONATE 27.3 MEQ/L (21.0-32.0); BLOOD UREA NITROGEN 26 MG/DL (7-18); CHLORIDE 102 MEQ/L (98-107); GLOMERULAR FILTRATION RATE 91 ML/MIN (>89); MAGNESIUM 2.3 MG/DL (1.5-2.5); POTASSIUM 4.3 MEQ/L (3.5-5.1); SODIUM (NA) 138 MEQ/L (136-145); TOTAL BILIRUBIN ADULT 0.2 MG/DL (0.2-1.0)
[2016-08-25] MEDS: ACETAMINOPHEN/HYDROcodone 325 MG/10 MG TAB PO PRN ×4 (06:14→21:16)
[2016-08-25] MEDS ORDERED: MILKSUS PO (08:27)
[2016-08-25] MEDS ORDERED: DOCU1CAP39 PO (08:27)
[2016-08-25 08:51] VITALS: BP 144/85; PULSE 98; RESP 18; TEMP 97.3; O2SAT 97
[2016-08-25] MEDS: SODIUM CHLORIDE 0.9% FLUSH 5 ML FLUSH IVF SCH ×2 (09:00→21:00)
[2016-08-25] MEDS: REMOVE OLD PATCH T-DERMAL SCH (09:00)
[2016-08-25] MEDS: FAMOTIDINE 20 MG TAB PO SCH ×2 (09:07→21:15)
[2016-08-25] MEDS: QUEtiapine FUMARATE 100 MG TAB PO SCH (09:07)
[2016-08-25] MEDS: DOCUSATE SODIUM 100 MG CAP PO SCH ×2 (09:07→21:15)
[2016-08-25] MEDS: GABAPENTIN 400 MG CAP PO SCH ×3 (09:07→17:41)
[2016-08-25] MEDS: VALPROIC ACID SYRUP 250 MG/5 ML UDC PO SCH ×2 (09:08→21:15)
[2016-08-25] MEDS: LACTULOSE SYRUP 20 GM/30 ML CUP PO SCH (09:08)
[2016-08-25] MEDS: NICOTINE 21 MG/24 HR PATCH T-DERMAL SCH (09:09)
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
[2016-08-25 12:31] VITALS: BP 121/77; PULSE 104; RESP 18; TEMP 99.5; O2SAT 97
--- NOTE | 2016-08-25 15:56 | HHI.NSPN ---
Note Status Status: Progress Note Interval History Interval History 08/20: Patient doing well. Working with PT & OT. Still w/left hemiparesis. 08/22: Patient awake & alert. With flat affect. States still not able to move left side. He is doing "as good as possible." He reports he is to go to rehab on 08/26. 08/22 Stable. Possible rehab placement next week. 08/25: Stable. Possible rehab placement next week. Labs, Micro, & Vital Signs Results Date Time Temp Pulse Resp B/P Pulse Ox O2 Delivery O2 Flow Rate FiO2 08/25/16 12:31 99.5 104 18 121/77 97 08/25/16 08:51 97.3 98 18 144/85 97 08/25/16 05:49 18 08/25/16 03:52 97.9 82 18 128/73 96 08/25/16 02:42 97 Room Air 08/24/16 21:54 16 08/24/16 20:00 98.7 88 18 149/89 98 08/24/16 16:38 99.8 99 16 122/73 95 08/25/16 07:00 Intake Total 480 ml Output Total 1100 ml Balance -620 ml Constitutional Vital Signs Date Time Temp Pulse Resp B/P Pulse Ox O2 Delivery O2 Flow Rate FiO2 08/25/16 12:31 99.5 104 18 121/77 97 08/25/16 08:51 97.3 98 18 144/85 97 08/25/16 05:49 18 08/25/16 03:52 97.9 82 18 128/73 96 08/25/16 02:42 97 Room Air 08/24/16 21:54 16 08/24/16 20:00 98.7 88 18 149/89 98 08/24/16 16:38 99.8 99 16 122/73 95 08/25/16 07:00 Intake Total 480 ml Output Total 1100 ml Balance -620 ml Review of Systems/Exam Exam Constitutional: Awake and alert. HEENT: Well approximated right-sided craniotomy incision w/stu intact, no evident drainage, erythema or streaking noted, mildly tender. Flap is soft. Resp: CTAB w/o W/R/R, equal excursion, nonlaboured, on RA. CV: S1S2 w/RRR w/o M/G/R GI: Abdomen soft, nontender, positive bowel sounds. Muscle: Right UE and LE 5/5. Left hemiplegia Neuro: AAOx3. Speech clear & appropriate. Follows commands. Medications Current Medications Current Medications Cefazolin Sodium/ Dextrose 50 ml @ 100 mls/hr STAT ONCE IV Last administered on 08/12/16 03:52; Start 08/12/16 at 03:30; Stop 08/12/16 at 03:59; Status DC Sodium Chloride (NS 1000 ml Inj) 1,000 ml @ 1,000 mls/hr Q1H IV Last administered on 08/12/16 03:52; Start 08/12/16 at 03:24; Stop 08/12/16 at 04:23 ; Status DC Sodium Chloride (NS Flush) 2 ml UNSCH PRN IVF FLUSH AFTER USING IV ACCESS; Start 08/12/16 at 03:30; Stop 08/12/16 at 10:38; Status DC Ondansetron HCl (Zofran Inj) 4 mg STK-MED ONCE .ROUTE ; Start 08/12/16 at 04:15 ; Stop 08/12/16 at 04:16; Status DC Ondansetron HCl (Zofran Inj) 4 mg ONCE ONCE IV Last administered on 08/12/16 04:19; Start 08/12/16 at 04:30; Stop 08/12/16 at 04:31; Status DC Iohexol (Omnipaque 350 Inj) 100 ml STK-MED ONCE IV Last administered on 04:39; Start 08/12/16 at 04:39; Stop 08/12/16 at 04:40; Status DC Fentanyl Citrate (fentaNYL INJ) 50 mcg ONCE ONCE IV PUSH Last administered on 08/12/16 06:03; Start 08/12/16 at 05:15; Stop 08/12/16 at 05:16; Status DC Morphine Sulfate (Morphine Inj) 4 mg ONCE ONCE IV PUSH Last administered on 07:41; Start 08/12/16 at 07:45; Stop 08/12/16 at 07:46; Status DC Etomidate (Amidate Inj) 40 mg ONCE ONCE IV PUSH ; Start 08/12/16 at 10:00; Stop 08/12/16 at 10:01; Status DC Fentanyl Citrate (fentaNYL INJ) 250 mcg ONCE ONCE IV PUSH ; Start 08/12/16 at 10:00; Stop 08/12/16 at 10:01; Status DC Midazolam HCl (Versed Inj) 10 mg ONCE ONCE IV PUSH ; Start 08/12/16 at 10:00; Stop 08/12/16 at 10:01; Status DC Succinylcholine Chloride (Quelicin Inj) 100 mg ONCE ONCE IV PUSH ; Start at 10:00; Stop 08/12/16 at 10:01; Status DC Thrombin (Thrombin Top Soln) 10,000 units STK-MED ONCE .ROUTE ; Start 08/12/16 at 08:32; Stop 08/12/16 at 08:33; Status DC Gelatin (Gelfoam 100 Top) 1 foam STK-MED ONCE .ROUTE ; Start 08/12/16 at 08:32; Stop 08/12/16 at 08:33; Status DC Etomidate (Amidate Inj) 20 mg STK-MED ONCE .ROUTE Last administered on 08:50; Start 08/12/16 at 08:32; Stop 08/12/16 at 08:33; Status DC Lidocaine/ Epinephrine (Xylocaine-Epi 1%-1:100,000 Inj) 50 ml STK-MED ONCE .ROUTE ; Start 08/12/16 at 08:32; Stop 08/12/16 at 08:33; Status DC Gentamicin Sulfate (Gentamicin Inj) 240 mg STK-MED ONCE .ROUTE ; Start 08/12/16 at 08:32; Stop 08/12/16 at 08:33; Status DC Chlorhexidine Gluconate 15 ml 15 ml BID@08,20 MT Last administered on 08:00; Start 08/12/16 at 20:00; Stop 08/15/16 at 13:24; Status DC Propofol 100 ml @ 0 mls/hr TITRATE IV Last administered on 08/14/16 12:28; Start 08/12/16 at 08:45; Stop 08/15/16 at 08:57; Status DC Fentanyl Citrate 250 ml @ 0 mls/hr TITRATE IV Last administered on 08/14/16 08 :04; Start 08/12/16 at 08:45; Stop 08/15/16 at 08:57; Status DC Sodium Chloride (NS 1000 ml Inj) 1,000 ml @ 100 mls/hr Q10H IV ; Start at 08:32; Stop 08/12/16 at 10:45; Status DC Sodium Chloride (NS Flush) 2 ml UNSCH PRN IV FLUSH FLUSH AFTER USING IV ACCESS ; Start 08/12/16 at 08:45; Stop 08/12/16 at 10:38; Status DC Acetaminophen (Tylenol) 650 mg Q6H PRN PO Pain 1-2 or TEMP > 102 F; Start 08/12 at 08:45; Stop 08/12/16 at 10:33; Status DC Enalaprilat (Vasotec Inj) 1.25 mg Q8H PRN IV SBP>180, DBP>95; Start 08/12/16 at 08:45 Ondansetron HCl (Zofran Inj) 4 mg Q6H PRN IV NAUSEA OR VOMITING; Start at 08:45; Stop 08/12/16 at 10:42; Status DC Pantoprazole Sodium (Protonix Inj) 40 mg Q24H IVP ; Start 08/12/16 at 10:00; Stop 08/12/16 at 10:41; Status DC Docusate Sodium (Colace) 100 mg BID PO ; Start 08/12/16 at 09:00; Stop 08/12/16 at 10:43; Status DC Magnesium Hydroxide (Milk Of Magnesia Liq) 30 ml HS PO Last administered on 21:07; Start 08/12/16 at 21:00 Midazolam HCl 10 mg 10 mg STK-MED ONCE .ROUTE Last administered on 08/12/16 08 :50; Start 08/12/16 at 08:38; Stop 08/12/16 at 08:39; Status DC Norepinephrine Bitartrate (Levophed-Dextrose Drip) 250 ml @ As Directed STK- MED ONCE IV ; Start 08/12/16 at 08:39; Stop 08/12/16 at 08:40; Status DC Vancomycin HCl (Vancomycin Inj) 1,000 mg STK-MED ONCE .ROUTE ; Start 08/12/16 at 08:41; Stop 08/12/16 at 08:42; Status DC Levetriacetam 1000 mg 1,000 mg STK-MED ONCE IV ; Start 08/12/16 at 08:42; Stop 08/12/16 at 08:43; Status DC Mannitol (Mannitol Inj) 50 ml @ As Directed STK-MED ONCE .ROUTE Last administered on 08/12/16 09:00; Start 08/12/16 at 08:42; Stop 08/12/16 at 08:43 ; Status DC Rocuronium [place] 50 mg 50 mg STK-MED ONCE .ROUTE Last administered on 09:00; Start 08/12/16 at 08:57; Stop 08/12/16 at 08:58; Status DC Mannitol (Mannitol Inj) 50 ml @ As Directed STK-MED ONCE .ROUTE ; Start at 09:01; Stop 08/12/16 at 09:02; Status DC Midazolam HCl 2 mg 2 mg STK-MED ONCE .ROUTE ; Start 08/12/16 at 09:02; Stop at 09:03; Status DC Sodium Chloride 500 ml @ 20 mls/hr CONTINUOUS IV Last administered on t 03:41; Start 08/12/16 at 11:00; Stop 08/14/16 at 15:39; Status DC Potassium Chloride 100 ml @ 50 mls/hr Q2H PRN IV For Potassium 2.8 - 3.2 mEq/L ; Start 08/12/16 at 09:15; Stop 08/15/16 at 13:26; Status DC Potassium Chloride (KCl 20 Meq Premix Inj) 100 ml @ 50 mls/hr Q2H PRN IV For Potassium 2.8 - 3.2 mEq/L; Start 08/12/16 at 09:15; Stop 08/15/16 at 13:26; Status DC Potassium Bicarb/ Potassium Chloride 50 meq 50 meq UNSCH PRN PO For Potassium 3.3 - 3.5 mEq/L; Start 08/12/16 at 09:15; Stop 08/15/16 at 13:26; Status DC Potassium Chloride 100 ml @ 25 mls/hr UNSCH PRN IV For Potassium 3.3 - 3.5 mEq /L Last administered on 08/14/16 22:07; Start 08/12/16 at 09:15; Stop 08/15/16 at 13:26; Status DC Potassium Chloride 100 ml @ 50 mls/hr Q2H PRN IV For Potassium 3.3 - 3.5 mEq/L ; Start 08/12/16 at 09:15; Stop 08/15/16 at 13:24; Status DC Magnesium Sulfate/ Sodium Chloride (Magnesium Sulfate Inj/NS Inj) 100 ml @ 50 mls/hr UNSCH PRN IV For Magnesium 0.9 - 1.1 mg/dL; Start 08/12/16 at 09:15; Stop 08/15/16 at 13:24; Status DC Magnesium Oxide 800 mg 800 mg UNSCH PRN PO For Magnesium 1.2 - 1.6 mg/dL; Start 08/12/16 at 09:15; Stop 08/15/16 at 13:24; Status DC Magnesium Sulfate/ Sodium Chloride (Magnesium Sulfate Inj/NS Inj) 100 ml @ 50 mls/hr UNSCH PRN IV For Magnesium 1.2 - 1.6 mg/dL; Start 08/12/16 at 09:15; Stop 08/15/16 at 13:24; Status DC Potassium Phosphate 2000 mg 2,000 mg Q4H PRN PO For Phosphorus < 2.5 mg/dL Last administered on 08/14/16 12:19; Start 08/12/16 at 09:15; Stop 08/15/16 at 13:24; Status DC Sodium Phosphate/ Sodium Chloride (Sodium Phosphate Inj/NS 250 ml Inj) 250 ml @ 42 mls/hr UNSCH PRN IV For Phosphorus < 2.5 mg/dL Last administered on 01:22; Start 08/12/16 at 09:15; Stop 08/15/16 at 13:24; Status DC Potassium Phosphate 2000 mg 2,000 mg UNSCH PRN PO/TUBE SEE LABEL COMMENTS; Start 08/12/16 at 09:15; Stop 08/15/16 at 13:25; Status DC Potassium Phosphate 30 mmol/ Sodium Chloride 260 ml @ 42 mls/hr UNSCH PRN IV SEE LABEL COMMENTS; Start 08/12/16 at 09:15; Stop 08/15/16 at 13:25; Status DC Piperacillin Sod/ Tazobactam Sod 50 ml @ 100 mls/hr Q6H IV Last administered on 08/18/16 10:44; Start 08/12/16 at 12:00; Stop 08/18/16 at 11:46; Status DC Potassium Chloride/Sodium Chloride (NS + KCl 20 Meq Inj) 1,000 ml @ 100 mls/hr Q10H IV Last administered on 08/13/16 08:33; Start 08/12/16 at 11:00; Stop at 09:51; Status DC IV Flush (NS Flush) 2 ml UNSCH PRN IVF FLUSH AFTER USING IV ACCESS; Start 08/12 at 10:00 IV Flush 2 ml 2 ml BID IVF Last administered on 08/25/16 09:00; Start at 21:00 Cefazolin Sodium/ Dextrose 50 ml @ 100 mls/hr Q8H IV Last administered on 08/13 02:07; Start 08/12/16 at 12:00; Stop 08/13/16 at 04:29; Status DC Levetriacetam/ Sodium Chloride (Keppra Inj/NS Inj) 105 ml @ 400 mls/hr Q12H IV Last administered on 08/17/16 12:23; Start 08/12/16 at 11:00; Stop 08/17/16 at 14:20; Status DC Bisacodyl (Dulcolax Supp) 10 mg DAILY PRN RECTAL CONSTIPATION Last administered on 08/15/16 18:21; Start 08/12/16 at 11:00 Docusate Sodium (Colace) 100 mg BID PO Last administered on 08/25/16 09:07; Start 08/12/16 at 21:00 Pantoprazole Sodium (Protonix) 40 mg DAILY PO ; Start 08/13/16 at 09:00; Stop at 09:00; Status DC Pantoprazole Sodium (Protonix Inj) 40 mg DAILY IVP Last administered on 08:36; Start 08/13/16 at 09:00; Stop 08/16/16 at 12:13; Status DC Ondansetron HCl (Zofran Inj) 4 mg Q6H PRN IV NAUSEA OR VOMITING Last administered on 08/15/16 17:35; Start 08/12/16 at 11:00 Calcium Gluconate 1 gm 1 gm UNSCH PRN IV SEE LABEL COMMENTS; Start 08/12/16 at 10:00; Stop 08/13/16 at 10:29; Status DC Potassium Chloride 100 ml @ 50 mls/hr UNSCH PRN IV POTASSIUM LESS THAN 4; Start 08/12/16 at 10:00; Stop 08/15/16 at 13:25; Status DC Magnesium Sulfate/ Sodium Chloride (Magnesium Sulfate Inj/NS Inj) 108 ml @ 108 mls/hr UNSCH PRN IV MAGNESIUM LESS THAN 2; Start 08/12/16 at 10:00; Stop at 13:25; Status DC Acetaminophen/ Hydrocodone Bitart ([place] 10-325 Mg) 1 tab Q4H PRN PO SEE LABEL COMMENTS Last administered on 08/25/16 11:46; Start 08/12/16 at 10:00 Acetaminophen/ Hydrocodone Bitart ([place] 10-325 Mg) 2 tab Q4H PRN PO SEE LABEL COMMENTS Last administered on 08/14/16 08:03; Start 08/12/16 at 10:00; Stop at 15:39; Status DC Morphine Sulfate (Morphine Inj) 2 mg Q2H PRN IV PUSH PAIN SCALE 1 TO 6; Start 08/12/16 at 10:00; Stop 08/12/16 at 10:40; Status DC Morphine Sulfate (Morphine Inj) 4 mg Q2H PRN IV PUSH PAIN SCALE 7 TO 10; Start 08/12/16 at 10:00; Stop 08/12/16 at 10:40; Status DC Acetaminophen (Tylenol) 650 mg Q4H PRN PO TEMPERATURE > 101.5 F Last administered on 08/20/16 15:40; Start 08/12/16 at 10:00 Gentamicin Sulfate (Gentamicin Inj) 240 mg STK-MED ONCE IRRIGATION Last administered on 08/12/16 10:24; Start 08/12/16 at 10:24; Stop 08/12/16 at 12:01 ; Status DC Gelatin 1 foam 1 foam STK-MED ONCE TOP Last administered on 08/12/16 10:24; Start 08/12/16 at 10:24; Stop 08/12/16 at 12:01; Status DC Vancomycin HCl/ Sodium Chloride (Vancomycin Inj/ NS 250 ml Inj) 250 ml @ 250 mls/hr ONCE ONCE IV ; Start 08/12/16 at 11:30; Stop 08/12/16 at 12:29; Status Cancel Thrombin (Thrombin Top Soln) 5,000 units STK-MED ONCE TOP Last administered on 08/12/16 10:24; Start 08/12/16 at 10:24; Stop 08/12/16 at 12:02; Status DC Albuterol/ Ipratropium (Duoneb Neb) 1 ampule Q6HR NEB NEB Last administered on 08/16/16 15:19; Start 08/12/16 at 16:00; Stop 08/16/16 at 16:00; Status DC Albuterol/ Ipratropium (Duoneb Neb) 1 ampule Q2HR NEB NEB ; Start 08/12/16 at 12:00; Stop 08/12/16 at 13:30; Status DC Lidocaine/ Epinephrine (Xylocaine-Epi 1%-1:100,000 Inj) 30 ml STK-MED ONCE INFIL Last administered on 08/12/16 10:24; Start 08/12/16 at 10:24; Stop 08/12 at 12:02; Status DC Midazolam HCl (Versed Inj) 2 mg STK-MED ONCE .ROUTE ; Start 08/12/16 at 12:21; Stop 08/12/16 at 12:22; Status DC Albuterol/ Ipratropium (Duoneb Neb) 1 ampule Q2HR NEB PRN NEB SOB/WHEEZING; Start 08/12/16 at 14:00 Epinephrine HCl (EPINEPHrine (1:10,000) INJ) 1 mg STK-MED ONCE .ROUTE ; Start at 03:38; Stop 08/13/16 at 03:39; Status DC Lidocaine HCl (Xylocaine 2% Inj) 100 mg STK-MED ONCE .ROUTE ; Start 08/13/16 at 03:39; Stop 08/13/16 at 03:40; Status DC Atropine Sulfate 1 mg 1 mg STK-MED ONCE .ROUTE ; Start 08/13/16 at 03:39; Stop 08/13/16 at 03:40; Status DC Calcium Gluconate/ Sodium Chloride (Calcium Gluconate Inj/NS Inj) 110 ml @ 110 mls/hr UNSCH PRN IV SEE LABEL COMMENTS Last administered on 08/13/16 11:00; Start 08/13/16 at 11:00; Stop 08/15/16 at 13:25; Status DC Lactulose (Lactulose Liq) 30 ml DAILY PO ; Start 08/14/16 at 09:00; Stop at 09:00; Status DC Lactulose (Lactulose Liq) 30 ml DAILY PO Last administered on 08/25/16 09:08; Start 08/14/16 at 09:00 Valproic Acid (Depakene Liq) 250 mg BID PO Last administered on 08/25/16 09:08 ; Start 08/14/16 at 10:30 Labetalol HCl (Trandate Inj) 100 mg STK-MED ONCE .ROUTE ; Start 08/14/16 at 14: 02; Stop 08/14/16 at 14:03; Status DC Labetalol HCl (Trandate Inj) 10 mg Q2H PRN IV SBP >160 Last administered on 14:17; Start 08/14/16 at 15:00; Stop 08/15/16 at 13:25; Status DC Morphine Sulfate (Morphine Inj) 2 mg Q2H PRN IV PUSH PAIN SCALE 1 TO 10 Last administered on 08/17/16 05:33; Start 08/14/16 at 15:45; Stop 08/18/16 at 11:46 ; Status DC Furosemide 40 mg 40 mg ONCE ONCE IV PUSH Last administered on 08/14/16 15:46 ; Start 08/14/16 at 15:45; Stop 08/14/16 at 15:46; Status DC Sodium Chloride 1,000 ml @ 75 mls/hr [id number] IV Last administered on 08:20; Start 08/14/16 at 19:00; Stop 08/15/16 at 09:48; Status DC Sodium Chloride (NS 250 ml Inj) 250 ml @ As Directed STK-MED ONCE .ROUTE ; Start 08/15/16 at 00:18; Stop 08/15/16 at 00:19; Status DC Nicardipine HCl (Cardene Inj) 25 mg STK-MED ONCE .ROUTE ; Start 08/15/16 at 00: 18; Stop 08/15/16 at 00:19; Status DC Bisacodyl (Dulcolax Ec) 10 mg ONCE ONCE PO Last administered on 08/16/16 08: 37; Start 08/16/16 at 07:15; Stop 08/16/16 at 07:17; Status DC Bisacodyl (Dulcolax Supp) 10 mg ONCE ONCE RECTAL Last administered on 08:37; Start 08/16/16 at 07:15; Stop 08/16/16 at 07:17; Status DC Famotidine (Pepcid) 20 mg BID PO Last administered on 08/25/16 09:07; Start at 21:00 Levetriacetam (Keppra) 500 mg Q12HR PO Last administered on 08/19/16 09:51; Start 08/17/16 at 21:00; Stop 08/19/16 at 13:57; Status DC Hydromorphone HCl (Dilaudid Pf Inj) 2 mg Q4H PRN IV PUSH BREAKTHROUGH PAIN Last administered on 08/18/16 10:44; Start 08/17/16 at 17:00; Stop 08/18/16 at 11:46; Status DC Gabapentin (Neurontin) 400 mg TID PO Last administered on 08/25/16 14:53; Start 08/18/16 at 09:15 Sumatriptan Succinate (Imitrex) 50 mg DAILY PRN PO MIGRAINE HEADACHE Last administered on 08/25/16 04:14; Start 08/18/16 at 09:15 Quetiapine Fumarate (SEROquel) 100 mg DAILY PO Last administered on 08/25/16 09:07; Start 08/18/16 at 09:15 Enoxaparin Sodium (Lovenox Inj) 40 mg Q24H SQ Last administered on 08/18/16 12 :39; Start 08/18/16 at 12:00; Stop 08/21/16 at 15:42; Status DC Trazodone HCl (Desyrel) 50 mg HS PO Last administered on 08/20/16 21:39; Start 08/19/16 at 21:00; Stop 08/21/16 at 15:28; Status DC Trazodone HCl (Desyrel) 100 mg HS PO Last administered on 08/24/16 21:12; Start 08/21/16 at 21:00 Enoxaparin Sodium (Lovenox Inj) 40 mg Q24H SQ Last administered on 08/24/16 15 :48; Start 08/21/16 at 16:00 Nicotine (Habitrol 21 Mg Patch.24 Hr) 1 patch DAILY T-DERMAL Last administered on 08/25/16 09:09; Start 08/23/16 at 12:00 Miscellaneous Information 1 DAILY T-DERMAL Last administered on 08/25/16 09:00 ; Start 08/24/16 at 09:00 Medical Decision Making MDM Remarks 35 y/o M s/p right craniotomy for severe TBI. Stable neurologic exam following traumatic brain injury. Persistent left hemiparesis. Plan Plan Remarks Patient appears neurologically stable. Continue to monitor. Continue Depakote for seizure prophylaxis. Continue with rehab/therapy. Rehab placement pending. Yovani Garnica MD Aug 25, 2016 15:56
[2016-08-25 16:30] VITALS: BP 118/60; PULSE 79; RESP 16; TEMP 99.3; O2SAT 97
[2016-08-25] MEDS: ENOXAPARIN SODIUM 40 MG/0.4 ML SYRINGE SQ SCH (16:51)
[2016-08-25 20:00] VITALS: BP 124/74; PULSE 106; RESP 18; TEMP 99; O2SAT 96
[2016-08-25] MEDS: MAGNESIUM HYDROXIDE SUSP 30 ML CUP PO SCH (21:15)
[2016-08-25] MEDS: traZODone HCL 100 MG TAB PO SCH (21:15)
[2016-08-26] VITALS: BP 144/65; PULSE 77; RESP 20; TEMP 98.1; O2SAT 95
[2016-08-26] MEDS: ACETAMINOPHEN/HYDROcodone 325 MG/10 MG TAB PO PRN ×5 (03:56→22:11)
[2016-08-26 04:00] VITALS: BP 125/78; PULSE 86; RESP 18; TEMP 98.5; O2SAT 96
[2016-08-26 07:58] VITALS: BP 124/72; PULSE 88; RESP 18; TEMP 97.5; O2SAT 96
[2016-08-26] MEDS: LACTULOSE SYRUP 20 GM/30 ML CUP PO SCH (08:27)
[2016-08-26] MEDS: VALPROIC ACID SYRUP 250 MG/5 ML UDC PO SCH ×2 (08:27→20:38)
[2016-08-26] MEDS: GABAPENTIN 400 MG CAP PO SCH (08:29)
[2016-08-26] MEDS: DOCUSATE SODIUM 100 MG CAP PO SCH ×2 (08:29→20:38)
[2016-08-26] MEDS: FAMOTIDINE 20 MG TAB PO SCH ×2 (08:29→20:38)
[2016-08-26] MEDS: QUEtiapine FUMARATE 100 MG TAB PO SCH (08:30)
[2016-08-26] MEDS: NICOTINE 21 MG/24 HR PATCH T-DERMAL SCH (08:30)
[2016-08-26] MEDS: REMOVE OLD PATCH T-DERMAL SCH (08:30)
[2016-08-26] MEDS: SODIUM CHLORIDE 0.9% FLUSH 5 ML FLUSH IVF SCH ×2 (08:31→20:39)
--- NOTE | 2016-08-26 09:11 | HHI.NSPN ---
(Promise Todd) Note Status Status: Progress Note (Promise Todd) Interval History Interval History 35 y/o male underwent emergent right decompressive craniectomy with evacuation of SDH and placement of ICP monitor on 08/12/16. 08/13: ICPs stable overnight, f/u CT completed, intubated and well sedated. 08/14: remains with stable ICPs, following simple commands to right side, reports slight movement with stimuli to left side 08/15: extubated, doing well, slightly conversing, giving right thumbs up. 08/16: mild headaches, sensitivity to light. oriented x 3. minimal NORM drainage overnight. 08/26: continues to c/o of headaches, requesting for stronger narcotics. He is on Neurontin 400 tid. (Promise Todd) Labs, Micro, & Vital Signs Results Date Time Temp Pulse Resp B/P Pulse Ox O2 Delivery O2 Flow Rate FiO2 08/26/16 07:58 97.5 88 18 124/72 96 08/26/16 05:18 18 08/26/16 04:00 98.5 86 18 125/78 96 08/26/16 03:57 Room Air 08/26/16 00:00 98.1 77 20 144/65 95 08/25/16 20:00 99.0 106 18 124/74 96 08/25/16 16:30 99.3 79 16 118/60 97 08/25/16 12:31 99.5 104 18 121/77 97 08/26/16 07:00 Intake Total 1560 ml Output Total 1500 ml Balance 60 ml Constitutional Vital Signs Date Time Temp Pulse Resp B/P Pulse Ox O2 Delivery O2 Flow Rate FiO2 08/26/16 07:58 97.5 88 18 124/72 96 08/26/16 05:18 18 08/26/16 04:00 98.5 86 18 125/78 96 08/26/16 03:57 Room Air 08/26/16 00:00 98.1 77 20 144/65 95 08/25/16 20:00 99.0 106 18 124/74 96 08/25/16 16:30 99.3 79 16 118/60 97 08/25/16 12:31 99.5 104 18 121/77 97 08/26/16 07:00 Intake Total 1560 ml Output Total 1500 ml Balance 60 ml (Promise Todd) Review of Systems/Exam Exam Mr. Ortega is awake and oriented to time, place and person. Speech is slow, but fluent. Flat affect. Surgical wound is healing well. Right flap is full but soft. Cranial nerve examination: pupils to be equal, round and reactive to light. Gross extra-ocular movements are intact. Left supranuclear weakness. Motor: moving right side 4/5, left hemiplegia Sensory: reports intact to light touch x 4, R>L Left Babinski response, left ankle clonus. (Promise Todd) Medications Current Medications Current Medications Medications (Trade) Dose Ordered Sig/Charleen Route PRN Reason Start Time Stop Time Status Last Admin Dose Admin Enalaprilat (Vasotec Inj) 1.25 mg Q8H PRN IV SBP>180, DBP>95 08/12/16 08:45 Magnesium Hydroxide (Milk Of Axel Bartlett) 30 ml HS PO 08/12/16 21:00 08/25/16 21:15 IV Flush (NS Flush) 2 ml UNSCH PRN IVF FLUSH AFTER USING IV ACCESS 08/12/16 10:00 IV Flush (NS Flush) 2 ml BID IVF 08/12/16 21:00 08/26/16 08:31 Bisacodyl (Dulcolax Supp) 10 mg DAILY PRN RECTAL CONSTIPATION 08/12/16 11:00 08/15/16 18:21 Docusate Sodium (Colace) 100 mg BID PO 08/12/16 21:00 08/26/16 08:29 Ondansetron HCl (Zofran Inj) 4 mg Q6H PRN IV NAUSEA OR VOMITING 08/12/16 11:00 08/15/16 17:35 Acetaminophen/ Hydrocodone Bitart ([place] 10-325 Mg) 1 tab Q4H PRN PO SEE LABEL COMMENTS 08/12/16 10:00 08/26/16 08:30 Acetaminophen (Tylenol) 650 mg Q4H PRN PO TEMPERATURE > 101.5 F 08/12/16 10:00 08/20/16 15:40 Lactulose (Lactulose Liq) 30 ml DAILY PO 08/14/16 09:00 08/26/16 08:27 Valproic Acid (Depakene Liq) 250 mg BID PO 08/14/16 10:30 08/26/16 08:27 Famotidine (Pepcid) 20 mg BID PO 08/16/16 21:00 08/26/16 08:29 Gabapentin (Neurontin) 400 mg TID PO 08/18/16 09:15 08/26/16 08:29 Sumatriptan Succinate (Imitrex) 50 mg DAILY PRN PO MIGRAINE HEADACHE 08/18/16 09:15 08/25/16 04:14 Quetiapine Fumarate (SEROquel) 100 mg DAILY PO 08/18/16 09:15 08/26/16 08:30 Trazodone HCl (Desyrel) 100 mg HS PO 08/21/16 21:00 08/25/16 21:15 Enoxaparin Sodium (Lovenox Inj) 40 mg Q24H SQ 08/21/16 16:00 08/25/16 16:51 Nicotine (Habitrol 21 Mg Patch.24 Hr) 1 patch DAILY T-DERMAL 08/23/16 12:00 08/26/16 08:30 Miscellaneous Information 1 DAILY T-DERMAL 08/24/16 09:00 08/26/16 08:30 (Promise Todd) Medical Decision Making MDM Remarks 35 y/o male TBI, s/p right decompressive craniectomy with evac of SDH on 08/12/16 , stable mental status with persistent left hemiplegia (Promise Todd) Plan Plan Remarks cont therapy and rehab efforts, increase Neurontin to 600 mg tid for MEZA, defer further mgt of his pain medications to attending physician dc scalp stu today clear to dc to rehab from N[facility] standpoint, will sign off, call prn (Promise Todd) Attending Statement The exam, history, and the medical decision-making described in the above note were completed with the assistance of the mid-level provider. I reviewed and agree with the findings presented. I attest that I had a [id number] encounter with the patient on the same day, and personally performed and documented my assessment and findings in the medical record. (Harman Pizano MD) Promise Todd August 26, 2016 09:11 Harman Pizano MD August 28, 2016 09:42
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
[2016-08-26 12:15] VITALS: BP 121/79; PULSE 111; RESP 18; TEMP 97.9; O2SAT 98
[2016-08-26] MEDS: GABAPENTIN 300 MG CAP PO SCH ×2 (12:25→18:12)
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
[2016-08-26 16:14] VITALS: BP 125/67; PULSE 90; RESP 18; TEMP 98.1; O2SAT 95
[2016-08-26] MEDS: ENOXAPARIN SODIUM 40 MG/0.4 ML SYRINGE SQ SCH (18:13)
[2016-08-26 20:00] VITALS: BP 141/72; PULSE 88; RESP 16; TEMP 98.3; O2SAT 97
[2016-08-26] MEDS: MAGNESIUM HYDROXIDE SUSP 30 ML CUP PO SCH (20:38)
[2016-08-26] MEDS: traZODone HCL 100 MG TAB PO SCH (20:39)
[2016-08-26] MEDS: SUMAtriptan SUCCINATE 50 MG TAB PO PRN (22:17)
[2016-08-27] VITALS: BP 109/69; PULSE 70; RESP 18; TEMP 97.8; O2SAT 94
[2016-08-27 04:00] VITALS: BP 122/70; PULSE 72; RESP 18; TEMP 97.7; O2SAT 94
[2016-08-27] MEDS: ACETAMINOPHEN/HYDROcodone 325 MG/10 MG TAB PO PRN ×5 (06:13→22:25)
[2016-08-27 08:16] VITALS: BP 139/82; PULSE 76; RESP 18; TEMP 98.8; O2SAT 96
[2016-08-27] MEDS: SODIUM CHLORIDE 0.9% FLUSH 5 ML FLUSH IVF SCH ×2 (09:00→21:00)
[2016-08-27] MEDS: REMOVE OLD PATCH T-DERMAL SCH (09:00)
[2016-08-27] MEDS: VALPROIC ACID SYRUP 250 MG/5 ML UDC PO SCH ×2 (09:43→21:00)
[2016-08-27] MEDS: LACTULOSE SYRUP 20 GM/30 ML CUP PO SCH (09:43)
[2016-08-27] MEDS: QUEtiapine FUMARATE 100 MG TAB PO SCH (09:44)
[2016-08-27] MEDS: DOCUSATE SODIUM 100 MG CAP PO SCH ×2 (09:44→21:00)
[2016-08-27] MEDS: GABAPENTIN 300 MG CAP PO SCH ×3 (09:44→17:48)
[2016-08-27] MEDS: FAMOTIDINE 20 MG TAB PO SCH ×2 (09:44→21:00)
[2016-08-27] MEDS: NICOTINE 21 MG/24 HR PATCH T-DERMAL SCH (09:51)
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
[2016-08-27 12:08] VITALS: BP 125/64; PULSE 80; RESP 18; TEMP 98.2; O2SAT 97
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
[2016-08-27 16:30] VITALS: BP 142/65; PULSE 97; RESP 18; TEMP 99.2; O2SAT 97
[2016-08-27] MEDS: ENOXAPARIN SODIUM 40 MG/0.4 ML SYRINGE SQ SCH (16:37)
[2016-08-27 20:00] VITALS: BP 129/69; PULSE 107; RESP 18; TEMP 99; O2SAT 95
[2016-08-27] MEDS: traZODone HCL 100 MG TAB PO SCH (21:00)
[2016-08-27] MEDS: MAGNESIUM HYDROXIDE SUSP 30 ML CUP PO SCH (21:00)
[2016-08-27] MEDS: SUMAtriptan SUCCINATE 50 MG TAB PO PRN (22:25)
[2016-08-28] VITALS: BP 107/62; PULSE 72; RESP 20; TEMP 98.3; O2SAT 94
[2016-08-28] MEDS: ACETAMINOPHEN/HYDROcodone 325 MG/10 MG TAB PO PRN ×5 (03:27→20:43)
[2016-08-28 05:38] VITALS: BP 115/68; PULSE 82; RESP 20; TEMP 97.6; O2SAT 95
[2016-08-28 08:08] VITALS: BP 120/69; PULSE 75; RESP 18; TEMP 97.5; O2SAT 96
[2016-08-28] MEDS: LACTULOSE SYRUP 20 GM/30 ML CUP PO SCH (08:09)
[2016-08-28] MEDS: REMOVE OLD PATCH T-DERMAL SCH (08:10)
[2016-08-28] MEDS: GABAPENTIN 300 MG CAP PO SCH ×3 (08:10→17:34)
[2016-08-28] MEDS: NICOTINE 21 MG/24 HR PATCH T-DERMAL SCH (08:10)
[2016-08-28] MEDS: DOCUSATE SODIUM 100 MG CAP PO SCH ×2 (08:10→20:40)
[2016-08-28] MEDS: VALPROIC ACID SYRUP 250 MG/5 ML UDC PO SCH ×2 (08:10→20:41)
[2016-08-28] MEDS: FAMOTIDINE 20 MG TAB PO SCH ×2 (08:10→20:41)
[2016-08-28] MEDS: QUEtiapine FUMARATE 100 MG TAB PO SCH (08:10)
[2016-08-28] MEDS: SODIUM CHLORIDE 0.9% FLUSH 5 ML FLUSH IVF SCH ×2 (08:11→20:41)
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
[2016-08-28 12:24] VITALS: BP 104/74; PULSE 105; RESP 18; TEMP 99; O2SAT 96
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
[2016-08-28] MEDS: ENOXAPARIN SODIUM 40 MG/0.4 ML SYRINGE SQ SCH (16:02)
[2016-08-28 16:13] VITALS: BP 134/74; PULSE 92; RESP 18; TEMP 98.6; O2SAT 97
[2016-08-28] MEDS: traZODone HCL 100 MG TAB PO SCH (20:41)
[2016-08-28] MEDS: MAGNESIUM HYDROXIDE SUSP 30 ML CUP PO SCH (20:41)
[2016-08-28] MEDS: SUMAtriptan SUCCINATE 50 MG TAB PO PRN (20:43)
[2016-08-28 23:08] VITALS: BP 120/68; PULSE 89; RESP 18; TEMP 99.4; O2SAT 95
[2016-08-29] VITALS: BP 114/65; PULSE 69; RESP 18; TEMP 97.2; O2SAT 95
[2016-08-29] MEDS: ACETAMINOPHEN/HYDROcodone 325 MG/10 MG TAB PO PRN ×5 (04:00→20:22)
[2016-08-29 06:01] VITALS: BP 119/67; PULSE 82; RESP 20; TEMP 98.5; O2SAT 97
[2016-08-29 08:15] VITALS: BP 108/67; PULSE 80; RESP 18; TEMP 98.3; O2SAT 93
[2016-08-29] MEDS: FAMOTIDINE 20 MG TAB PO SCH ×2 (08:21→20:21)
[2016-08-29] MEDS: SODIUM CHLORIDE 0.9% FLUSH 5 ML FLUSH IVF SCH ×2 (08:21→20:20)
[2016-08-29] MEDS: QUEtiapine FUMARATE 100 MG TAB PO SCH (08:21)
[2016-08-29] MEDS: GABAPENTIN 300 MG CAP PO SCH ×3 (08:22→16:15)
[2016-08-29] MEDS: VALPROIC ACID SYRUP 250 MG/5 ML UDC PO SCH ×2 (08:22→20:20)
[2016-08-29] MEDS: REMOVE OLD PATCH T-DERMAL SCH (08:22)
[2016-08-29] MEDS: NICOTINE 21 MG/24 HR PATCH T-DERMAL SCH (08:22)
[2016-08-29] MEDS: DOCUSATE SODIUM 100 MG CAP PO SCH ×2 (08:22→20:21)
[2016-08-29] MEDS: LACTULOSE SYRUP 20 GM/30 ML CUP PO SCH (08:22)
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
[2016-08-29 12:14] VITALS: BP 110/61; PULSE 105; RESP 18; TEMP 98.4; O2SAT 96
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
[2016-08-29 16:00] VITALS: BP 106/57; PULSE 99; RESP 18; TEMP 99.6; O2SAT 95
[2016-08-29] MEDS: ENOXAPARIN SODIUM 40 MG/0.4 ML SYRINGE SQ SCH (16:15)
[2016-08-29 20:00] VITALS: BP 120/64; PULSE 98; RESP 20; TEMP 98.6; O2SAT 94
[2016-08-29] MEDS: traZODone HCL 100 MG TAB PO SCH (20:21)
[2016-08-29] MEDS: SUMAtriptan SUCCINATE 50 MG TAB PO PRN ×2 (20:21→23:18)
[2016-08-29] MEDS: MAGNESIUM HYDROXIDE SUSP 30 ML CUP PO SCH (20:22)
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
[2016-08-30] VITALS: BP 129/65; PULSE 86; RESP 20; TEMP 96.1; O2SAT 94
[2016-08-30 04:00] VITALS: BP 129/65; PULSE 89; RESP 20; TEMP 96.3; O2SAT 94
[2016-08-30] MEDS: LACTULOSE SYRUP 20 GM/30 ML CUP PO SCH (08:15)
[2016-08-30] MEDS: GABAPENTIN 300 MG CAP PO SCH ×3 (08:16→17:08)
[2016-08-30] MEDS: FAMOTIDINE 20 MG TAB PO SCH ×2 (08:16→21:27)
[2016-08-30] MEDS: DOCUSATE SODIUM 100 MG CAP PO SCH ×2 (08:16→21:27)
[2016-08-30] MEDS: ACETAMINOPHEN/HYDROcodone 325 MG/10 MG TAB PO PRN ×4 (08:17→21:27)
[2016-08-30] MEDS: QUEtiapine FUMARATE 100 MG TAB PO SCH (08:17)
[2016-08-30] MEDS: NICOTINE 21 MG/24 HR PATCH T-DERMAL SCH (08:17)
[2016-08-30] MEDS: SODIUM CHLORIDE 0.9% FLUSH 5 ML FLUSH IVF SCH ×2 (08:23→21:00)
[2016-08-30] MEDS: REMOVE OLD PATCH T-DERMAL SCH (08:23)
[2016-08-30 08:30] VITALS: BP 121/71; PULSE 79; RESP 20; TEMP 97.8; O2SAT 96
[2016-08-30 12:00] VITALS: BP 114/74; PULSE 110; RESP 20; TEMP 98.7; O2SAT 96
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
[2016-08-30] MEDS: SERTRALINE HCL 50 MG TAB PO SCH (13:32)
[2016-08-30] MEDS: ENOXAPARIN SODIUM 40 MG/0.4 ML SYRINGE SQ SCH (17:08)
[2016-08-30 17:49] VITALS: O2SAT 98
[2016-08-30 20:00] VITALS: BP 126/71; PULSE 106; RESP 22; TEMP 96.6; O2SAT 97
[2016-08-30] MEDS: MAGNESIUM HYDROXIDE SUSP 30 ML CUP PO SCH (21:00)
[2016-08-30] MEDS: traZODone HCL 100 MG TAB PO SCH (21:26)
[2016-08-30] MEDS: VALPROIC ACID 250 MG CAP PO SCH (21:27)
[2016-08-31] VITALS: BP 110/61; PULSE 80; RESP 20; TEMP 97.4; O2SAT 95
[2016-08-31] MEDS: ACETAMINOPHEN/HYDROcodone 325 MG/10 MG TAB PO PRN ×3 (02:19→10:56)
[2016-08-31 04:00] VITALS: BP 114/65; PULSE 89; RESP 20; TEMP 97.1; O2SAT 96
--- NOTE | 2016-08-31 06:32 | RADRPT ---
EXAM DATE/TIME: 08/31/2016 04:30 [place] COMPARISON: CHEST SINGLE AP, August 15, 2016, 4:27. INDICATIONS : Shortness of breath, possible pulmonary disease. MEDICAL HISTORY : None. SURGICAL HISTORY : None. ENCOUNTER: Subsequent ACUITY: 2 weeks PAIN SCORE: Non-responsive. LOCATION: Bilateral chest FINDINGS: A single view of the chest demonstrates the lungs to be symmetrically aerated without evidence of mas s, infiltrate or effusion. The cardiomediastinal contours are unremarkable. Osseous structures are intact. CONCLUSION: No acute disease. Mitchell Bhatti MD on August 31, 2016 at 6:31 Board Certified Radiologist. This report was verified electronically.
[2016-08-31 07:25] LABS: AUTOMATED NEUTROPHIL # 2.7 TH/MM3 (1.8-7.7); BASOPHIL # 0.1 TH/MM3 (0-0.2); BASOPHIL % 1.2 % (0.0-2.0); EOSINOPHIL # 0.6 TH/MM3 (0-0.4); EOSINOPHIL % 9.6 % (0.0-4.0); HEMATOCRIT 33.3 % (39.0-51.0); HEMO FLAGS DIFF FINAL; LYMPH % 34.8 % (9.0-44.0); LYMPHOCYTE # 2.3 TH/MM3 (1.0-4.8); MEAN CELL VOLUME 84.6 FL (80.0-100.0); MEAN CORPUSCULAR HGB CONC 34.3 % (32.0-36.0); MONO % 12.1 % (0.0-8.0); NEUT % 42.3 % (16.0-70.0); PLATELET COUNT 474 TH/MM3 (150-450); RED BLOOD COUNT 3.93 MIL/MM3 (4.50-5.90); RED CELL DISTRIBUTION WIDTH 12.5 % (11.6-17.2); WHITE BLOOD COUNT 6.5 TH/MM3 (4.0-11.0)
[2016-08-31 08:00] VITALS: BP 114/59; PULSE 89; RESP 17; TEMP 97.2; O2SAT 98
[2016-08-31 08:03] LABS: ALKALINE PHOSPHATASE 82 U/L (45-117); ALT (GPT) 36 U/L (12-78); ANION GAP 7 MEQ/L (5-15); AST (GOT) 22 U/L (15-37); BLOOD UREA NITROGEN 22 MG/DL (7-18); CHLORIDE 102 MEQ/L (98-107); GLOMERULAR FILTRATION RATE 91 ML/MIN (>89); POTASSIUM 4.6 MEQ/L (3.5-5.1); SODIUM (NA) 141 MEQ/L (136-145); TOTAL BILIRUBIN ADULT 0.3 MG/DL (0.2-1.0)
[2016-08-31] MEDS: QUEtiapine FUMARATE 25 MG TAB PO SCH (08:13)
[2016-08-31] MEDS: LACTULOSE SYRUP 20 GM/30 ML CUP PO SCH (08:13)
[2016-08-31] MEDS: DOCUSATE SODIUM 100 MG CAP PO SCH ×2 (08:13→22:10)
[2016-08-31] MEDS: GABAPENTIN 300 MG CAP PO SCH ×3 (08:13→17:00)
[2016-08-31] MEDS: SERTRALINE HCL 50 MG TAB PO SCH (08:14)
[2016-08-31] MEDS: SODIUM CHLORIDE 0.9% FLUSH 5 ML FLUSH IVF SCH ×2 (08:14→21:00)
[2016-08-31] MEDS: VALPROIC ACID 250 MG CAP PO SCH ×2 (08:14→22:11)
[2016-08-31] MEDS: FAMOTIDINE 20 MG TAB PO SCH ×2 (08:14→22:10)
[2016-08-31] MEDS: NICOTINE 21 MG/24 HR PATCH T-DERMAL SCH (08:14)
[2016-08-31] MEDS: REMOVE OLD PATCH T-DERMAL SCH (08:14)
[2016-08-31 12:00] VITALS: BP 113/67; PULSE 83; RESP 17; TEMP 97.1; O2SAT 97
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
[2016-08-31] MEDS: oxyCODONE/ACETAMINOPHEN 10 MG/325 MG TAB PO PRN ×3 (15:07→22:11)
[2016-08-31] MEDS: ENOXAPARIN SODIUM 40 MG/0.4 ML SYRINGE SQ SCH (15:07)
[2016-08-31 16:00] VITALS: BP 104/68; PULSE 87; RESP 17; TEMP 97.7; O2SAT 98
[2016-08-31 20:00] VITALS: BP 126/69; PULSE 87; RESP 18; TEMP 98.5; O2SAT 95
[2016-08-31] MEDS: MAGNESIUM HYDROXIDE SUSP 30 ML CUP PO SCH (21:00)
[2016-08-31] MEDS: traZODone HCL 100 MG TAB PO SCH (22:10)
[2016-09-01] VITALS: BP 124/67; PULSE 78; RESP 18; TEMP 98; O2SAT 96
[2016-09-01] MEDS: oxyCODONE/ACETAMINOPHEN 10 MG/325 MG TAB PO PRN ×5 (03:07→21:05)
[2016-09-01 04:00] VITALS: BP 120/70; PULSE 68; RESP 18; TEMP 96.7; O2SAT 97
[2016-09-01] MEDS: LACTULOSE SYRUP 20 GM/30 ML CUP PO SCH (07:43)
[2016-09-01] MEDS: GABAPENTIN 300 MG CAP PO SCH ×3 (07:43→17:48)
[2016-09-01] MEDS: FAMOTIDINE 20 MG TAB PO SCH ×2 (07:43→21:04)
[2016-09-01] MEDS: VALPROIC ACID 250 MG CAP PO SCH ×2 (07:43→21:05)
[2016-09-01] MEDS: QUEtiapine FUMARATE 25 MG TAB PO SCH (07:43)
[2016-09-01] MEDS: REMOVE OLD PATCH T-DERMAL SCH (07:44)
[2016-09-01] MEDS: NICOTINE 21 MG/24 HR PATCH T-DERMAL SCH (07:44)
[2016-09-01] MEDS: SODIUM CHLORIDE 0.9% FLUSH 5 ML FLUSH IVF SCH ×2 (07:44→21:00)
[2016-09-01] MEDS: SERTRALINE HCL 50 MG TAB PO SCH (07:44)
[2016-09-01] MEDS: DOCUSATE SODIUM 100 MG CAP PO SCH ×2 (07:44→21:04)
[2016-09-01 08:00] VITALS: BP 117/71; PULSE 88; RESP 17; TEMP 98.2; O2SAT 94
[2016-09-01 12:00] VITALS: BP 128/79; PULSE 100; RESP 17; TEMP 98.3; O2SAT 96
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
[2016-09-01] MEDS: ENOXAPARIN SODIUM 40 MG/0.4 ML SYRINGE SQ SCH (15:59)
[2016-09-01 16:00] VITALS: BP 116/74; PULSE 102; RESP 19; TEMP 99.3; O2SAT 95
[2016-09-01] MEDS: MAGNESIUM HYDROXIDE SUSP 30 ML CUP PO SCH (21:00)
[2016-09-01] MEDS: traZODone HCL 100 MG TAB PO SCH (21:04)
[2016-09-01 23:00] VITALS: BP 129/63; PULSE 85; RESP 18; TEMP 98.2; O2SAT 95
[2016-09-02] MEDS: oxyCODONE/ACETAMINOPHEN 10 MG/325 MG TAB PO PRN ×5 (02:48→20:35)
[2016-09-02 04:00] VITALS: BP 131/63; PULSE 71; RESP 18; TEMP 97.2; O2SAT 97
[2016-09-02 08:16] VITALS: BP 116/79; PULSE 75; RESP 16; TEMP 96.7; O2SAT 95
[2016-09-02] MEDS: REMOVE OLD PATCH T-DERMAL SCH (09:00)
[2016-09-02] MEDS: SODIUM CHLORIDE 0.9% FLUSH 5 ML FLUSH IVF SCH ×2 (09:00→20:36)
[2016-09-02] MEDS: LACTULOSE SYRUP 20 GM/30 ML CUP PO SCH (09:20)
[2016-09-02] MEDS: DOCUSATE SODIUM 100 MG CAP PO SCH ×2 (09:20→20:35)
[2016-09-02] MEDS: QUEtiapine FUMARATE 25 MG TAB PO SCH (09:20)
[2016-09-02] MEDS: NICOTINE 21 MG/24 HR PATCH T-DERMAL SCH (09:21)
[2016-09-02] MEDS: FAMOTIDINE 20 MG TAB PO SCH ×2 (09:22→20:36)
[2016-09-02] MEDS: VALPROIC ACID 250 MG CAP PO SCH ×2 (09:22→20:36)
[2016-09-02] MEDS: GABAPENTIN 300 MG CAP PO SCH ×3 (09:22→18:07)
[2016-09-02] MEDS: SERTRALINE HCL 50 MG TAB PO SCH (09:22)
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
[2016-09-02 13:01] VITALS: BP 146/80; PULSE 96; RESP 20; TEMP 97.7; O2SAT 95
[2016-09-02] MEDS: HYDROCORTISONE 1% CREAM 30 GM TOPICAL SCH ×2 (14:14→20:37)
[2016-09-02] MEDS: ENOXAPARIN SODIUM 40 MG/0.4 ML SYRINGE SQ SCH (16:19)
[2016-09-02 17:07] VITALS: BP 126/81; PULSE 90; RESP 18; TEMP 99; O2SAT 94
[2016-09-02 19:05] VITALS: O2SAT 95
[2016-09-02] MEDS: traZODone HCL 100 MG TAB PO SCH (20:36)
[2016-09-02] MEDS: MAGNESIUM HYDROXIDE SUSP 30 ML CUP PO SCH (20:36)
[2016-09-02 21:51] VITALS: BP 159/67; PULSE 87; RESP 18; TEMP 98.9; O2SAT 92
[2016-09-03] VITALS: BP 171/53; PULSE 94; RESP 18; TEMP 98.3; O2SAT 94
[2016-09-03] MEDS: oxyCODONE/ACETAMINOPHEN 10 MG/325 MG TAB PO PRN ×5 (03:20→21:24)
[2016-09-03 04:00] VITALS: BP 106/67; PULSE 68; RESP 18; TEMP 97.4; O2SAT 96
[2016-09-03] MEDS: HYDROCORTISONE 1% CREAM 30 GM TOPICAL SCH ×3 (05:54→21:24)
[2016-09-03 08:28] VITALS: BP 114/82; PULSE 77; RESP 16; TEMP 97.5; O2SAT 96
[2016-09-03] MEDS: LACTULOSE SYRUP 20 GM/30 ML CUP PO SCH (08:36)
[2016-09-03] MEDS: QUEtiapine FUMARATE 25 MG TAB PO SCH (08:37)
[2016-09-03] MEDS: VALPROIC ACID 250 MG CAP PO SCH (08:37)
[2016-09-03] MEDS: NICOTINE 21 MG/24 HR PATCH T-DERMAL SCH (08:37)
[2016-09-03] MEDS: REMOVE OLD PATCH T-DERMAL SCH (08:37)
[2016-09-03] MEDS: SERTRALINE HCL 50 MG TAB PO SCH (08:37)
[2016-09-03] MEDS: GABAPENTIN 300 MG CAP PO SCH ×3 (08:37→17:00)
[2016-09-03] MEDS: FAMOTIDINE 20 MG TAB PO SCH ×2 (08:37→21:24)
[2016-09-03] MEDS: DOCUSATE SODIUM 100 MG CAP PO SCH ×2 (08:37→21:24)
[2016-09-03] MEDS: SODIUM CHLORIDE 0.9% FLUSH 5 ML FLUSH IVF SCH ×2 (08:39→21:00)
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
[2016-09-03 12:06] VITALS: BP 120/71; PULSE 92; RESP 17; TEMP 97.9; O2SAT 95
[2016-09-03 16:10] VITALS: BP 125/73; PULSE 88; RESP 17; TEMP 97.8; O2SAT 97
[2016-09-03] MEDS: ENOXAPARIN SODIUM 40 MG/0.4 ML SYRINGE SQ SCH (16:59)
[2016-09-03 20:00] VITALS: BP 117/74; PULSE 84; RESP 20; TEMP 98.6; O2SAT 95
[2016-09-03] MEDS: MAGNESIUM HYDROXIDE SUSP 30 ML CUP PO SCH (21:24)
[2016-09-03] MEDS: traZODone HCL 100 MG TAB PO SCH (21:24)
[2016-09-04] VITALS: BP 113/64; PULSE 72; RESP 20; TEMP 97.4; O2SAT 96
[2016-09-04] MEDS: oxyCODONE/ACETAMINOPHEN 10 MG/325 MG TAB PO PRN ×5 (01:27→20:50)
[2016-09-04] MEDS: HYDROCORTISONE 1% CREAM 30 GM TOPICAL SCH ×3 (05:02→20:55)
[2016-09-04 06:10] VITALS: BP 113/67; PULSE 68; RESP 20; TEMP 98.1; O2SAT 96
[2016-09-04] MEDS: GABAPENTIN 300 MG CAP PO SCH ×3 (07:53→17:12)
[2016-09-04] MEDS: LACTULOSE SYRUP 20 GM/30 ML CUP PO SCH (07:53)
[2016-09-04] MEDS: FAMOTIDINE 20 MG TAB PO SCH ×2 (07:54→20:50)
[2016-09-04] MEDS: NICOTINE 21 MG/24 HR PATCH T-DERMAL SCH (07:54)
[2016-09-04] MEDS: REMOVE OLD PATCH T-DERMAL SCH (07:54)
[2016-09-04] MEDS: SERTRALINE HCL 50 MG TAB PO SCH (07:54)
[2016-09-04] MEDS: DOCUSATE SODIUM 100 MG CAP PO SCH ×2 (07:54→20:50)
[2016-09-04 08:58] VITALS: BP 117/77; PULSE 73; RESP 17; TEMP 97.8; O2SAT 95
[2016-09-04] MEDS: SODIUM CHLORIDE 0.9% FLUSH 5 ML FLUSH IVF SCH ×2 (09:00→20:50)
[2016-09-04] MEDS ORDERED: QUEtiapine FUMARATE 25 MG TAB PO SCH (09:00)
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
[2016-09-04] MEDS ORDERED: PILL SPLITTER OTHER PRN (11:00)
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
[2016-09-04] MEDS: HYDROmorphone HCL 2 MG TAB PO PRN ×2 (11:06→18:41)
[2016-09-04 12:33] VITALS: BP 117/67; PULSE 82; RESP 18; TEMP 99.2; O2SAT 96
[2016-09-04] MEDS: ENOXAPARIN SODIUM 40 MG/0.4 ML SYRINGE SQ SCH (14:30)
[2016-09-04 17:05] VITALS: BP 114/83; PULSE 89; RESP 20; TEMP 98.2; O2SAT 96
[2016-09-04 20:00] VITALS: BP 130/71; PULSE 90; RESP 20; TEMP 99.3; O2SAT 96
[2016-09-04] MEDS: traZODone HCL 100 MG TAB PO SCH (20:50)
[2016-09-04] MEDS: MAGNESIUM HYDROXIDE SUSP 30 ML CUP PO SCH (20:50)
[2016-09-05] VITALS: BP 115/74; PULSE 70; RESP 18; TEMP 97.4; O2SAT 96
[2016-09-05] MEDS: HYDROmorphone HCL 2 MG TAB PO PRN ×3 (03:51→20:48)
[2016-09-05] MEDS: oxyCODONE/ACETAMINOPHEN 10 MG/325 MG TAB PO PRN ×4 (06:01→18:10)
[2016-09-05] MEDS: HYDROCORTISONE 1% CREAM 30 GM TOPICAL SCH ×3 (06:03→21:29)
[2016-09-05 06:36] VITALS: BP 123/75; PULSE 68; RESP 20; TEMP 97.8; O2SAT 98
[2016-09-05 07:40] VITALS: BP 121/78; PULSE 76; RESP 18; TEMP 98.2; O2SAT 97
[2016-09-05] MEDS: SODIUM CHLORIDE 0.9% FLUSH 5 ML FLUSH IVF SCH ×2 (08:15→21:25)
[2016-09-05] MEDS: DOCUSATE SODIUM 100 MG CAP PO SCH ×2 (08:15→20:47)
[2016-09-05] MEDS: LACTULOSE SYRUP 20 GM/30 ML CUP PO SCH (08:15)
[2016-09-05] MEDS: FAMOTIDINE 20 MG TAB PO SCH ×2 (08:15→20:47)
[2016-09-05] MEDS: SERTRALINE HCL 50 MG TAB PO SCH (08:15)
[2016-09-05] MEDS: GABAPENTIN 300 MG CAP PO SCH ×3 (08:15→18:09)
[2016-09-05] MEDS: NICOTINE 21 MG/24 HR PATCH T-DERMAL SCH (08:17)
[2016-09-05] MEDS: REMOVE OLD PATCH T-DERMAL SCH (08:17)
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
[2016-09-05 11:48] VITALS: BP 126/74; PULSE 82; RESP 18; TEMP 98.5; O2SAT 96
[2016-09-05 15:30] VITALS: BP 117/78; PULSE 83; RESP 18; TEMP 98.2; O2SAT 95
[2016-09-05] MEDS: ENOXAPARIN SODIUM 40 MG/0.4 ML SYRINGE SQ SCH (15:54)
[2016-09-05] MEDS: traZODone HCL 100 MG TAB PO SCH (20:47)
[2016-09-05 21:06] VITALS: BP 117/80; PULSE 68; RESP 19; TEMP 97.9; O2SAT 95
[2016-09-05] MEDS: MAGNESIUM HYDROXIDE SUSP 30 ML CUP PO SCH (21:25)
[2016-09-06 00:18] VITALS: BP 107/61; PULSE 114; RESP 20; TEMP 97.4; O2SAT 95
[2016-09-06] MEDS: oxyCODONE/ACETAMINOPHEN 10 MG/325 MG TAB PO PRN ×5 (03:17→20:37)
[2016-09-06 05:40] VITALS: BP 100/69; PULSE 70; RESP 20; TEMP 97.4; O2SAT 97
[2016-09-06] MEDS: HYDROmorphone HCL 2 MG TAB PO PRN (05:55)
[2016-09-06] MEDS: HYDROCORTISONE 1% CREAM 30 GM TOPICAL SCH ×3 (05:55→22:00)
[2016-09-06 07:30] VITALS: BP 127/85; PULSE 86; RESP 17; TEMP 98.8; O2SAT 98
[2016-09-06] MEDS: REMOVE OLD PATCH T-DERMAL SCH (07:57)
[2016-09-06] MEDS: GABAPENTIN 300 MG CAP PO SCH ×3 (07:57→17:09)
[2016-09-06] MEDS: LACTULOSE SYRUP 20 GM/30 ML CUP PO SCH (07:57)
[2016-09-06] MEDS: SERTRALINE HCL 50 MG TAB PO SCH (07:57)
[2016-09-06] MEDS: FAMOTIDINE 20 MG TAB PO SCH ×2 (07:57→20:37)
[2016-09-06] MEDS: DOCUSATE SODIUM 100 MG CAP PO SCH ×2 (07:57→20:37)
[2016-09-06] MEDS: NICOTINE 21 MG/24 HR PATCH T-DERMAL SCH (07:58)
[2016-09-06] MEDS: SODIUM CHLORIDE 0.9% FLUSH 5 ML FLUSH IVF SCH ×2 (07:58→20:37)
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
[2016-09-06 11:40] VITALS: BP 137/90; PULSE 88; RESP 17; TEMP 97.3; O2SAT 97
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
[2016-09-06 15:45] VITALS: BP 122/69; PULSE 83; RESP 17; TEMP 98.6; O2SAT 99
[2016-09-06] MEDS: ENOXAPARIN SODIUM 40 MG/0.4 ML SYRINGE SQ SCH (15:57)
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
[2016-09-06 20:00] VITALS: BP 152/98; PULSE 87; RESP 22; TEMP 98.9; O2SAT 95
[2016-09-06] MEDS: traZODone HCL 100 MG TAB PO SCH (20:37)
[2016-09-06] MEDS: MAGNESIUM HYDROXIDE SUSP 30 ML CUP PO SCH (20:37)
[2016-09-07] VITALS: BP 118/69; PULSE 62; RESP 12; TEMP 98.8; O2SAT 95
[2016-09-07] MEDS: oxyCODONE/ACETAMINOPHEN 10 MG/325 MG TAB PO PRN ×6 (01:55→22:24)
[2016-09-07 04:00] VITALS: BP 122/76; PULSE 67; RESP 22; TEMP 96.2; O2SAT 95
[2016-09-07] MEDS: HYDROCORTISONE 1% CREAM 30 GM TOPICAL SCH ×3 (06:00→22:25)
[2016-09-07 08:20] VITALS: BP 129/88; PULSE 80; RESP 18; TEMP 98; O2SAT 95
[2016-09-07] MEDS: REMOVE OLD PATCH T-DERMAL SCH (09:13)
[2016-09-07] MEDS: NICOTINE 21 MG/24 HR PATCH T-DERMAL SCH (09:13)
[2016-09-07] MEDS: GABAPENTIN 300 MG CAP PO SCH ×3 (09:13→16:55)
[2016-09-07] MEDS: LACTULOSE SYRUP 20 GM/30 ML CUP PO SCH (09:13)
[2016-09-07] MEDS: SERTRALINE HCL 50 MG TAB PO SCH (09:14)
[2016-09-07] MEDS: SODIUM CHLORIDE 0.9% FLUSH 5 ML FLUSH IVF SCH ×2 (09:14→21:00)
[2016-09-07] MEDS: FAMOTIDINE 20 MG TAB PO SCH ×2 (09:14→22:24)
[2016-09-07] MEDS: DOCUSATE SODIUM 100 MG CAP PO SCH ×2 (09:14→22:24)
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
[2016-09-07 12:46] VITALS: BP 113/69; PULSE 62; RESP 18; TEMP 97.7; O2SAT 100
[2016-09-07] MEDS: ENOXAPARIN SODIUM 40 MG/0.4 ML SYRINGE SQ SCH (16:55)
[2016-09-07 16:58] VITALS: BP 139/72; PULSE 78; RESP 18; TEMP 98.8; O2SAT 96
[2016-09-07 20:00] VITALS: BP 130/88; PULSE 77; RESP 20; TEMP 98.7; O2SAT 98
[2016-09-07] MEDS: MAGNESIUM HYDROXIDE SUSP 30 ML CUP PO SCH (21:00)
[2016-09-07] MEDS: traZODone HCL 100 MG TAB PO SCH (22:24)
[2016-09-08] VITALS: BP 140/77; PULSE 77; RESP 18; TEMP 98.8; O2SAT 90
[2016-09-08 04:00] VITALS: BP 117/74; PULSE 78; RESP 18; TEMP 97.8; O2SAT 96
[2016-09-08] MEDS: oxyCODONE/ACETAMINOPHEN 10 MG/325 MG TAB PO PRN ×5 (04:29→21:26)
[2016-09-08] MEDS: HYDROCORTISONE 1% CREAM 30 GM TOPICAL SCH ×3 (05:48→21:27)
[2016-09-08] MEDS: SERTRALINE HCL 50 MG TAB PO SCH (08:31)
[2016-09-08] MEDS: FAMOTIDINE 20 MG TAB PO SCH ×2 (08:31→21:26)
[2016-09-08] MEDS: LACTULOSE SYRUP 20 GM/30 ML CUP PO SCH (08:31)
[2016-09-08] MEDS: DOCUSATE SODIUM 100 MG CAP PO SCH ×2 (08:31→21:26)
[2016-09-08] MEDS: GABAPENTIN 300 MG CAP PO SCH ×3 (08:31→16:40)
[2016-09-08] MEDS: REMOVE OLD PATCH T-DERMAL SCH (08:33)
[2016-09-08] MEDS: NICOTINE 21 MG/24 HR PATCH T-DERMAL SCH (08:33)
[2016-09-08 08:54] VITALS: BP 123/72; PULSE 72; RESP 18; TEMP 98.2; O2SAT 98
[2016-09-08] MEDS: SODIUM CHLORIDE 0.9% FLUSH 5 ML FLUSH IVF SCH ×2 (09:00→21:00)
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
[2016-09-08 12:52] VITALS: BP 133/71; PULSE 94; RESP 18; TEMP 97.9; O2SAT 94
[2016-09-08 16:23] VITALS: BP 136/85; PULSE 85; RESP 19; TEMP 98.6; O2SAT 96
[2016-09-08] MEDS: ENOXAPARIN SODIUM 40 MG/0.4 ML SYRINGE SQ SCH (16:41)
[2016-09-08 20:00] VITALS: BP 133/87; PULSE 81; RESP 22; TEMP 97.7; O2SAT 96
[2016-09-08] MEDS: MAGNESIUM HYDROXIDE SUSP 30 ML CUP PO SCH (21:00)
[2016-09-08] MEDS: traZODone HCL 100 MG TAB PO SCH (21:26)
[2016-09-09] VITALS: BP 130/78; PULSE 83; RESP 20; TEMP 96.9; O2SAT 94
[2016-09-09] MEDS: oxyCODONE/ACETAMINOPHEN 10 MG/325 MG TAB PO PRN ×5 (04:31→21:18)
[2016-09-09] MEDS: HYDROCORTISONE 1% CREAM 30 GM TOPICAL SCH ×2 (05:34→14:23)
[2016-09-09 08:30] VITALS: BP 146/76; PULSE 70; RESP 18; TEMP 97.9; O2SAT 98
[2016-09-09] MEDS: FAMOTIDINE 20 MG TAB PO SCH ×2 (08:42→21:16)
[2016-09-09] MEDS: REMOVE OLD PATCH T-DERMAL SCH (08:42)
[2016-09-09] MEDS: NICOTINE 21 MG/24 HR PATCH T-DERMAL SCH (08:42)
[2016-09-09] MEDS: LACTULOSE SYRUP 20 GM/30 ML CUP PO SCH (08:43)
[2016-09-09] MEDS: SERTRALINE HCL 50 MG TAB PO SCH (08:43)
[2016-09-09] MEDS: GABAPENTIN 300 MG CAP PO SCH ×3 (08:43→18:06)
[2016-09-09] MEDS: SODIUM CHLORIDE 0.9% FLUSH 5 ML FLUSH IVF SCH ×2 (08:43→21:17)
[2016-09-09] MEDS: DOCUSATE SODIUM 100 MG CAP PO SCH ×2 (08:43→21:16)
[2016-09-09] MEDS ORDERED: SERTRALINE HCL 50 MG TAB PO ONE (10:45)
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
[2016-09-09 11:57] VITALS: BP 148/95; PULSE 83; RESP 18; TEMP 98.8; O2SAT 97
[2016-09-09 12:13] VITALS: BP 148/95; PULSE 83; RESP 18; TEMP 98.8; O2SAT 97
[2016-09-09] MEDS: ENOXAPARIN SODIUM 40 MG/0.4 ML SYRINGE SQ SCH (16:09)
[2016-09-09 16:16] VITALS: BP 152/94; PULSE 86; RESP 18; TEMP 97.8; O2SAT 96
[2016-09-09 20:00] VITALS: BP 149/98; PULSE 88; RESP 18; TEMP 97.2; O2SAT 95
[2016-09-09] MEDS: MAGNESIUM HYDROXIDE SUSP 30 ML CUP PO SCH (21:00)
[2016-09-09] MEDS: traZODone HCL 100 MG TAB PO SCH (21:16)
[2016-09-10 00:09] VITALS: BP 121/62; PULSE 71; RESP 18; TEMP 96.4; O2SAT 96
[2016-09-10] MEDS: oxyCODONE/ACETAMINOPHEN 10 MG/325 MG TAB PO PRN ×5 (01:56→19:43)
[2016-09-10] MEDS: HYDROmorphone HCL 2 MG TAB PO PRN ×3 (03:52→21:08)
[2016-09-10 04:00] VITALS: BP 130/77; PULSE 63; RESP 18; TEMP 97.5; O2SAT 95
[2016-09-10] MEDS: HYDROCORTISONE 1% CREAM 30 GM TOPICAL SCH ×4 (07:39→21:00)
[2016-09-10] MEDS: SODIUM CHLORIDE 0.9% FLUSH 5 ML FLUSH IVF SCH ×2 (07:58→20:55)
[2016-09-10] MEDS: REMOVE OLD PATCH T-DERMAL SCH (07:59)
[2016-09-10] MEDS: NICOTINE 21 MG/24 HR PATCH T-DERMAL SCH (07:59)
[2016-09-10] MEDS: GABAPENTIN 300 MG CAP PO SCH ×3 (07:59→16:15)
[2016-09-10] MEDS: DOCUSATE SODIUM 100 MG CAP PO SCH ×2 (07:59→20:59)
[2016-09-10] MEDS: FAMOTIDINE 20 MG TAB PO SCH ×2 (07:59→20:59)
[2016-09-10] MEDS: SERTRALINE HCL 50 MG TAB PO SCH (07:59)
[2016-09-10] MEDS: LACTULOSE SYRUP 20 GM/30 ML CUP PO SCH (08:00)
[2016-09-10 08:47] VITALS: BP 127/84; PULSE 75; RESP 16; TEMP 97.1; O2SAT 97
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
[2016-09-10 12:03] VITALS: BP 136/79; PULSE 90; RESP 18; TEMP 98; O2SAT 95
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
[2016-09-10] MEDS: ENOXAPARIN SODIUM 40 MG/0.4 ML SYRINGE SQ SCH (16:15)
[2016-09-10 16:52] VITALS: BP 132/68; PULSE 87; RESP 18; TEMP 97.8; O2SAT 96
[2016-09-10 20:00] VITALS: BP 147/75; PULSE 82; RESP 18; TEMP 98.1; O2SAT 95
[2016-09-10] MEDS: traZODone HCL 100 MG TAB PO SCH (20:59)
[2016-09-11] MEDS: oxyCODONE/ACETAMINOPHEN 10 MG/325 MG TAB PO PRN ×6 (01:38→23:03)
[2016-09-11] MEDS: HYDROCORTISONE 1% CREAM 30 GM TOPICAL SCH ×3 (06:00→21:23)
[2016-09-11] MEDS: GABAPENTIN 300 MG CAP PO SCH ×3 (07:44→16:16)
[2016-09-11] MEDS: SERTRALINE HCL 50 MG TAB PO SCH (07:44)
[2016-09-11] MEDS: FAMOTIDINE 20 MG TAB PO SCH ×2 (07:44→21:22)
[2016-09-11] MEDS: NICOTINE 21 MG/24 HR PATCH T-DERMAL SCH (07:45)
[2016-09-11] MEDS: DOCUSATE SODIUM 100 MG CAP PO SCH ×2 (07:45→21:22)
[2016-09-11] MEDS: SODIUM CHLORIDE 0.9% FLUSH 5 ML FLUSH IVF SCH ×2 (07:45→21:00)
[2016-09-11] MEDS: REMOVE OLD PATCH T-DERMAL SCH (07:45)
[2016-09-11] MEDS: LACTULOSE SYRUP 20 GM/30 ML CUP PO SCH (07:45)
[2016-09-11 08:07] LABS: AUTOMATED NEUTROPHIL # 2.8 TH/MM3 (1.8-7.7); BASOPHIL # 0.1 TH/MM3 (0-0.2); BASOPHIL % 1.2 % (0.0-2.0); EOSINOPHIL # 0.5 TH/MM3 (0-0.4); EOSINOPHIL % 7.8 % (0.0-4.0); HEMATOCRIT 38.1 % (39.0-51.0); HEMO FLAGS DIFF FINAL; LYMPH % 38.8 % (9.0-44.0); LYMPHOCYTE # 2.5 TH/MM3 (1.0-4.8); MEAN CELL VOLUME 84.8 FL (80.0-100.0); MEAN CORPUSCULAR HEMOGLOBIN 27.5 PG (27.0-34.0); MEAN CORPUSCULAR HGB CONC 32.4 % (32.0-36.0); MONO % 9.9 % (0.0-8.0); NEUT % 42.3 % (16.0-70.0); PLATELET COUNT 266 TH/MM3 (150-450); RED CELL DISTRIBUTION WIDTH 13.4 % (11.6-17.2); WHITE BLOOD COUNT 6.6 TH/MM3 (4.0-11.0)
[2016-09-11 08:30] VITALS: BP 120/69; PULSE 76; RESP 20; TEMP 97.1; O2SAT 96
[2016-09-11 08:32] LABS: BICARBONATE 27.1 MEQ/L (21.0-32.0); POTASSIUM 4.2 MEQ/L (3.5-5.1)
[2016-09-11] MEDS: HYDROmorphone HCL 2 MG TAB PO PRN ×2 (08:57→17:18)
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
[2016-09-11 11:41] VITALS: BP 100/72; PULSE 93; RESP 20; TEMP 97.6; O2SAT 97
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
[2016-09-11 15:31] VITALS: BP 121/74; PULSE 87; RESP 20; TEMP 98.1; O2SAT 97
[2016-09-11] MEDS: ENOXAPARIN SODIUM 40 MG/0.4 ML SYRINGE SQ SCH (16:16)
[2016-09-11 20:00] VITALS: BP 130/75; PULSE 78; RESP 20; TEMP 98.6; O2SAT 97
[2016-09-11] MEDS: traZODone HCL 100 MG TAB PO SCH (21:22)
[2016-09-12] MEDS: oxyCODONE/ACETAMINOPHEN 10 MG/325 MG TAB PO PRN ×4 (05:11→21:10)
[2016-09-12] MEDS: HYDROCORTISONE 1% CREAM 30 GM TOPICAL SCH ×3 (05:13→21:11)
[2016-09-12 08:00] VITALS: BP 119/78; PULSE 68; RESP 16; TEMP 98; O2SAT 97
[2016-09-12] MEDS: SERTRALINE HCL 50 MG TAB PO SCH (08:27)
[2016-09-12] MEDS: REMOVE OLD PATCH T-DERMAL SCH (08:28)
[2016-09-12] MEDS: LACTULOSE SYRUP 20 GM/30 ML CUP PO SCH (08:28)
[2016-09-12] MEDS: DOCUSATE SODIUM 100 MG CAP PO SCH ×2 (08:28→21:09)
[2016-09-12] MEDS: FAMOTIDINE 20 MG TAB PO SCH ×2 (08:28→21:09)
[2016-09-12] MEDS: NICOTINE 21 MG/24 HR PATCH T-DERMAL SCH (08:28)
[2016-09-12] MEDS: GABAPENTIN 300 MG CAP PO SCH ×3 (08:28→17:49)
[2016-09-12] MEDS: HYDROmorphone HCL 2 MG TAB PO PRN ×2 (08:29→17:54)
[2016-09-12] MEDS: SODIUM CHLORIDE 0.9% FLUSH 5 ML FLUSH IVF SCH ×2 (08:32→21:00)
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
[2016-09-12 11:57] VITALS: BP 121/75; PULSE 92; RESP 16; TEMP 98.6; O2SAT 96
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
[2016-09-12 16:00] VITALS: BP 121/71; PULSE 91; RESP 16; TEMP 98.6; O2SAT 96
[2016-09-12] MEDS: ENOXAPARIN SODIUM 40 MG/0.4 ML SYRINGE SQ SCH (16:28)
[2016-09-12 20:20] VITALS: BP 123/75; PULSE 91; RESP 18; TEMP 97.9; O2SAT 96
[2016-09-12] MEDS: traZODone HCL 100 MG TAB PO SCH (21:09)
[2016-09-13] MEDS: oxyCODONE/ACETAMINOPHEN 10 MG/325 MG TAB PO PRN ×6 (01:33→22:16)
[2016-09-13] MEDS: HYDROCORTISONE 1% CREAM 30 GM TOPICAL SCH ×3 (06:27→22:18)
[2016-09-13 08:00] VITALS: BP 113/68; PULSE 81; RESP 20; TEMP 98.1; O2SAT 99
[2016-09-13] MEDS: REMOVE OLD PATCH T-DERMAL SCH (08:29)
[2016-09-13] MEDS: SODIUM CHLORIDE 0.9% FLUSH 5 ML FLUSH IVF SCH ×2 (08:29→21:00)
[2016-09-13] MEDS: NICOTINE 21 MG/24 HR PATCH T-DERMAL SCH (08:29)
[2016-09-13] MEDS: FAMOTIDINE 20 MG TAB PO SCH ×2 (08:31→22:15)
[2016-09-13] MEDS: DOCUSATE SODIUM 100 MG CAP PO SCH ×2 (08:31→22:21)
[2016-09-13] MEDS: LACTULOSE SYRUP 20 GM/30 ML CUP PO SCH (08:31)
[2016-09-13] MEDS: GABAPENTIN 300 MG CAP PO SCH ×3 (08:31→18:39)
[2016-09-13] MEDS: SERTRALINE HCL 50 MG TAB PO SCH (08:31)
[2016-09-13] MEDS: HYDROmorphone HCL 2 MG TAB PO PRN ×2 (08:32→16:18)
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
[2016-09-13 12:38] VITALS: BP 109/70; PULSE 90; RESP 20; TEMP 96.8; O2SAT 99
[2016-09-13] MEDS: ENOXAPARIN SODIUM 40 MG/0.4 ML SYRINGE SQ SCH (14:45)
[2016-09-13 16:47] VITALS: BP 145/91; PULSE 84; RESP 20; TEMP 98.9; O2SAT 98
[2016-09-13] MEDS: traZODone HCL 100 MG TAB PO SCH (22:16)
[2016-09-14] MEDS: HYDROmorphone HCL 2 MG TAB PO PRN ×3 (00:26→20:20)
[2016-09-14] MEDS: oxyCODONE/ACETAMINOPHEN 10 MG/325 MG TAB PO PRN ×5 (04:47→22:44)
[2016-09-14] MEDS: ACETAMINOPHEN 325 MG TAB PO PRN (04:47)
[2016-09-14] MEDS: HYDROCORTISONE 1% CREAM 30 GM TOPICAL SCH ×3 (04:52→20:21)
[2016-09-14 08:08] VITALS: BP 106/69; PULSE 66; RESP 20; TEMP 96.9; O2SAT 100
[2016-09-14] MEDS: SERTRALINE HCL 50 MG TAB PO SCH (08:20)
[2016-09-14] MEDS: LACTULOSE SYRUP 20 GM/30 ML CUP PO SCH (08:20)
[2016-09-14] MEDS: FAMOTIDINE 20 MG TAB PO SCH ×2 (08:20→20:17)
[2016-09-14] MEDS: DOCUSATE SODIUM 100 MG CAP PO SCH ×2 (08:20→20:17)
[2016-09-14] MEDS: GABAPENTIN 300 MG CAP PO SCH ×3 (08:20→17:00)
[2016-09-14] MEDS: REMOVE OLD PATCH T-DERMAL SCH (08:21)
[2016-09-14] MEDS: NICOTINE 21 MG/24 HR PATCH T-DERMAL SCH (08:21)
[2016-09-14] MEDS: SODIUM CHLORIDE 0.9% FLUSH 5 ML FLUSH IVF SCH ×2 (08:21→20:24)
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
[2016-09-14 12:09] VITALS: BP 116/74; PULSE 86; RESP 20; TEMP 98.1; O2SAT 99
[2016-09-14 16:32] VITALS: BP 120/71; PULSE 91; RESP 20; TEMP 97.5; O2SAT 96
[2016-09-14] MEDS: ENOXAPARIN SODIUM 40 MG/0.4 ML SYRINGE SQ SCH (17:00)
[2016-09-14 20:00] VITALS: BP 132/75; PULSE 70; RESP 18; TEMP 97.3; O2SAT 96
[2016-09-14] MEDS: traZODone HCL 100 MG TAB PO SCH (20:17)
[2016-09-15] VITALS: BP 127/73; PULSE 67; RESP 18; TEMP 97; O2SAT 97
[2016-09-15] MEDS: oxyCODONE/ACETAMINOPHEN 10 MG/325 MG TAB PO PRN ×5 (05:52→21:37)
[2016-09-15] MEDS: HYDROCORTISONE 1% CREAM 30 GM TOPICAL SCH ×3 (06:00→21:37)
[2016-09-15 08:05] VITALS: BP 120/82; PULSE 68; RESP 20; TEMP 97.4; O2SAT 98
[2016-09-15] MEDS: NICOTINE 21 MG/24 HR PATCH T-DERMAL SCH (08:31)
[2016-09-15] MEDS: REMOVE OLD PATCH T-DERMAL SCH (08:31)
[2016-09-15] MEDS: LACTULOSE SYRUP 20 GM/30 ML CUP PO SCH (08:31)
[2016-09-15] MEDS: FAMOTIDINE 20 MG TAB PO SCH ×2 (08:32→21:36)
[2016-09-15] MEDS: SODIUM CHLORIDE 0.9% FLUSH 5 ML FLUSH IVF SCH ×2 (08:32→21:00)
[2016-09-15] MEDS: GABAPENTIN 300 MG CAP PO SCH ×3 (08:32→18:09)
[2016-09-15] MEDS: DOCUSATE SODIUM 100 MG CAP PO SCH ×2 (08:32→21:36)
[2016-09-15] MEDS: SERTRALINE HCL 50 MG TAB PO SCH (08:32)
[2016-09-15] MEDS: HYDROmorphone HCL 2 MG TAB PO PRN ×2 (08:33→15:59)
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
[2016-09-15 12:28] VITALS: BP 116/82; PULSE 95; RESP 20; TEMP 98.9; O2SAT 96
[2016-09-15 15:55] VITALS: BP 114/69; PULSE 84; RESP 20; TEMP 98; O2SAT 95
[2016-09-15] MEDS: ENOXAPARIN SODIUM 40 MG/0.4 ML SYRINGE SQ SCH (15:59)
[2016-09-15 21:31] VITALS: BP 105/69; PULSE 86; RESP 20; TEMP 99; O2SAT 96
[2016-09-15] MEDS: SUMAtriptan SUCCINATE 50 MG TAB PO PRN (21:37)
[2016-09-15] MEDS: traZODone HCL 100 MG TAB PO SCH (21:37)
[2016-09-16] MEDS: oxyCODONE/ACETAMINOPHEN 10 MG/325 MG TAB PO PRN ×5 (02:26→22:14)
[2016-09-16] MEDS: HYDROmorphone HCL 2 MG TAB PO PRN ×2 (02:27→14:06)
[2016-09-16] MEDS: HYDROCORTISONE 1% CREAM 30 GM TOPICAL SCH ×3 (06:38→22:00)
[2016-09-16 08:27] LABS: AUTOMATED NEUTROPHIL # 2.3 TH/MM3 (1.8-7.7); BASOPHIL # 0.1 TH/MM3 (0-0.2); BASOPHIL % 1.2 % (0.0-2.0); EOSINOPHIL # 0.5 TH/MM3 (0-0.4); EOSINOPHIL % 8.4 % (0.0-4.0); HEMATOCRIT 37.4 % (39.0-51.0); HEMO FLAGS DIFF FINAL; LYMPH % 37.7 % (9.0-44.0); LYMPHOCYTE # 2.2 TH/MM3 (1.0-4.8); MEAN CELL VOLUME 83.8 FL (80.0-100.0); MEAN CORPUSCULAR HEMOGLOBIN 27.5 PG (27.0-34.0); MEAN CORPUSCULAR HGB CONC 32.8 % (32.0-36.0); MONO % 13.3 % (0.0-8.0); NEUT % 39.4 % (16.0-70.0); PLATELET COUNT 224 TH/MM3 (150-450); RED BLOOD COUNT 4.46 MIL/MM3 (4.50-5.90); RED CELL DISTRIBUTION WIDTH 13.6 % (11.6-17.2); WHITE BLOOD COUNT 5.7 TH/MM3 (4.0-11.0)
[2016-09-16 08:38] VITALS: BP 126/74; PULSE 75; RESP 16; TEMP 96.3; O2SAT 98
[2016-09-16 08:51] LABS: ALKALINE PHOSPHATASE 76 U/L (45-117); ALT (GPT) 34 U/L (12-78); ANION GAP 7 MEQ/L (5-15); AST (GOT) 17 U/L (15-37); BICARBONATE 30.3 MEQ/L (21.0-32.0); BLOOD UREA NITROGEN 19 MG/DL (7-18); CHLORIDE 102 MEQ/L (98-107); GLOMERULAR FILTRATION RATE 96 ML/MIN (>89); POTASSIUM 4.2 MEQ/L (3.5-5.1); SODIUM (NA) 139 MEQ/L (136-145); TOTAL BILIRUBIN ADULT 0.2 MG/DL (0.2-1.0)
[2016-09-16] MEDS: REMOVE OLD PATCH T-DERMAL SCH (09:00)
[2016-09-16] MEDS: SODIUM CHLORIDE 0.9% FLUSH 5 ML FLUSH IVF SCH ×2 (09:00→21:00)
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
[2016-09-16] MEDS: LACTULOSE SYRUP 20 GM/30 ML CUP PO SCH (09:56)
[2016-09-16] MEDS: DOCUSATE SODIUM 100 MG CAP PO SCH ×2 (09:56→22:12)
[2016-09-16] MEDS: SERTRALINE HCL 50 MG TAB PO SCH (09:56)
[2016-09-16] MEDS: GABAPENTIN 300 MG CAP PO SCH ×3 (09:56→17:07)
[2016-09-16] MEDS: FAMOTIDINE 20 MG TAB PO SCH ×2 (09:57→22:13)
[2016-09-16] MEDS: NICOTINE 21 MG/24 HR PATCH T-DERMAL SCH (09:58)
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
[2016-09-16 12:37] VITALS: BP 127/76; PULSE 86; RESP 17; TEMP 97.8; O2SAT 96
[2016-09-16 16:11] VITALS: BP 125/76; PULSE 92; RESP 19; TEMP 98.7; O2SAT 97
[2016-09-16] MEDS: ENOXAPARIN SODIUM 40 MG/0.4 ML SYRINGE SQ SCH (17:07)
[2016-09-16 22:00] VITALS: BP 117/65; PULSE 79; RESP 20; TEMP 98.1; O2SAT 94
[2016-09-16] MEDS: SUMAtriptan SUCCINATE 50 MG TAB PO PRN (22:13)
[2016-09-16] MEDS: traZODone HCL 100 MG TAB PO SCH (22:14)
[2016-09-17] MEDS: oxyCODONE/ACETAMINOPHEN 10 MG/325 MG TAB PO PRN ×5 (03:25→23:19)
[2016-09-17] MEDS: HYDROCORTISONE 1% CREAM 30 GM TOPICAL SCH ×3 (05:58→20:24)
[2016-09-17 08:49] VITALS: BP 111/62; PULSE 79; RESP 18; TEMP 97.7; O2SAT 95
[2016-09-17] MEDS: SODIUM CHLORIDE 0.9% FLUSH 5 ML FLUSH IVF SCH ×2 (09:00→20:24)
[2016-09-17] MEDS: REMOVE OLD PATCH T-DERMAL SCH (09:00)
[2016-09-17] MEDS: SERTRALINE HCL 50 MG TAB PO SCH (09:11)
[2016-09-17] MEDS: GABAPENTIN 300 MG CAP PO SCH ×3 (09:11→17:51)
[2016-09-17] MEDS: LACTULOSE SYRUP 20 GM/30 ML CUP PO SCH (09:11)
[2016-09-17] MEDS: FAMOTIDINE 20 MG TAB PO SCH ×2 (09:12→20:21)
[2016-09-17] MEDS: DOCUSATE SODIUM 100 MG CAP PO SCH ×2 (09:12→20:21)
[2016-09-17] MEDS: NICOTINE 21 MG/24 HR PATCH T-DERMAL SCH (09:13)
[2016-09-17 11:30] VITALS: BP 121/79; PULSE 100; RESP 20; TEMP 98.8; O2SAT 96
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
[2016-09-17 16:51] VITALS: BP 121/70; PULSE 72; RESP 21; TEMP 98; O2SAT 96
[2016-09-17] MEDS: ENOXAPARIN SODIUM 40 MG/0.4 ML SYRINGE SQ SCH (17:51)
[2016-09-17 20:00] VITALS: BP 127/81; PULSE 83; RESP 18; TEMP 98.9; O2SAT 95
[2016-09-17] MEDS: traZODone HCL 100 MG TAB PO SCH (20:21)
[2016-09-17] MEDS: HYDROmorphone HCL 2 MG TAB PO PRN (20:24)
[2016-09-17] MEDS: SUMAtriptan SUCCINATE 50 MG TAB PO PRN (23:18)
[2016-09-18] MEDS: oxyCODONE/ACETAMINOPHEN 10 MG/325 MG TAB PO PRN ×4 (04:47→21:42)
[2016-09-18] MEDS: HYDROCORTISONE 1% CREAM 30 GM TOPICAL SCH ×3 (06:00→21:42)
[2016-09-18 08:00] VITALS: BP 123/72; PULSE 69; RESP 18; TEMP 96.9; O2SAT 97
[2016-09-18] MEDS: SODIUM CHLORIDE 0.9% FLUSH 5 ML FLUSH IVF SCH ×2 (09:00→21:00)
[2016-09-18] MEDS: REMOVE OLD PATCH T-DERMAL SCH (09:00)
[2016-09-18] MEDS: SERTRALINE HCL 50 MG TAB PO SCH (09:37)
[2016-09-18] MEDS: FAMOTIDINE 20 MG TAB PO SCH ×2 (09:37→21:41)
[2016-09-18] MEDS: DOCUSATE SODIUM 100 MG CAP PO SCH ×2 (09:37→21:41)
[2016-09-18] MEDS: GABAPENTIN 300 MG CAP PO SCH ×3 (09:37→17:39)
[2016-09-18] MEDS: NICOTINE 21 MG/24 HR PATCH T-DERMAL SCH (09:38)
[2016-09-18] MEDS: LACTULOSE SYRUP 20 GM/30 ML CUP PO SCH (09:38)
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
[2016-09-18 12:00] VITALS: BP 147/81; PULSE 92; RESP 17; TEMP 98.7; O2SAT 96
[2016-09-18] MEDS: HYDROmorphone HCL 2 MG TAB PO PRN (14:35)
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
[2016-09-18 16:00] VITALS: BP 127/68; PULSE 83; RESP 17; TEMP 98.6; O2SAT 95
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
[2016-09-18] MEDS: ENOXAPARIN SODIUM 40 MG/0.4 ML SYRINGE SQ SCH (17:39)
[2016-09-18 20:00] VITALS: BP 132/84; PULSE 80; RESP 20; TEMP 97.3; O2SAT 97
[2016-09-18] MEDS: traZODone HCL 100 MG TAB PO SCH (21:41)
[2016-09-18] MEDS: SUMAtriptan SUCCINATE 50 MG TAB PO PRN (21:42)
[2016-09-19] MEDS: HYDROCORTISONE 1% CREAM 30 GM TOPICAL SCH ×3 (05:38→21:34)
[2016-09-19] MEDS: oxyCODONE/ACETAMINOPHEN 10 MG/325 MG TAB PO PRN ×5 (05:38→21:34)
[2016-09-19 08:00] VITALS: BP 121/79; PULSE 71; RESP 17; TEMP 96.8; O2SAT 96
[2016-09-19] MEDS: SODIUM CHLORIDE 0.9% FLUSH 5 ML FLUSH IVF SCH ×2 (09:00→21:00)
[2016-09-19] MEDS: REMOVE OLD PATCH T-DERMAL SCH (09:00)
[2016-09-19] MEDS: FAMOTIDINE 20 MG TAB PO SCH ×2 (09:37→21:33)
[2016-09-19] MEDS: DOCUSATE SODIUM 100 MG CAP PO SCH ×2 (09:37→21:33)
[2016-09-19] MEDS: GABAPENTIN 300 MG CAP PO SCH ×3 (09:37→17:41)
[2016-09-19] MEDS: SERTRALINE HCL 50 MG TAB PO SCH (09:37)
[2016-09-19] MEDS: LACTULOSE SYRUP 20 GM/30 ML CUP PO SCH (09:37)
[2016-09-19] MEDS: NICOTINE 21 MG/24 HR PATCH T-DERMAL SCH (09:39)
[2016-09-19 12:00] VITALS: BP 129/80; PULSE 89; RESP 18; TEMP 98; O2SAT 95
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
--- NOTE | 2016-09-19 15:33 | RADRPT ---
EXAM DATE/TIME: 09/19/2016 08:31 [place] COMPARISON: CT BRAIN W/O CONTRAST, August 18, 2016, 18:10. INDICATIONS : Intracranial hemorrage, F/U craniotomy, swelling of bone flap. RADIATION DOSE: 57.07 CTDIvol (mGy) MEDICAL HISTORY : None SURGICAL HISTORY : Craniotomy. ENCOUNTER: Subsequent ACUITY: 1 day PAIN SCALE: 0/10 LOCATION: cranial TECHNIQUE: Multiple contiguous axial images were obtained of the head. Using automated exposure control and adj ustment of the mA and/or kV according to patient size, radiation dose was kept as low as reasonably a chievable to obtain optimal diagnostic quality images. FINDINGS: A craniectomy is present with no significant mass effect or midline shift. Encephalomalacia is presen t in the high right frontoparietal region. Cerebral cortex protrudes 2.5-8 or 3 on the bone flap. A s ubdural effusion is present. No acute hemorrhage is seen. CONCLUSION: 1. Large right frontal craniectomy without significant mass effect or midline shift. No acute hemorrh age is seen. Hector Bennett MD on September 19, 2016 at 15:19 Board Certified Radiologist. This report was verified electronically.
[2016-09-19] MEDS: ENOXAPARIN SODIUM 40 MG/0.4 ML SYRINGE SQ SCH (16:06)
[2016-09-19] MEDS: HYDROmorphone HCL 2 MG TAB PO PRN (16:06)
[2016-09-19 17:42] VITALS: BP 135/78; PULSE 90; RESP 20; TEMP 98.1; O2SAT 98
[2016-09-19 20:00] VITALS: BP 130/83; PULSE 90; RESP 20; TEMP 97.5; O2SAT 94
[2016-09-19] MEDS: traZODone HCL 100 MG TAB PO SCH (21:33)
[2016-09-19] MEDS: SUMAtriptan SUCCINATE 50 MG TAB PO PRN (21:34)
[2016-09-20] MEDS: oxyCODONE/ACETAMINOPHEN 10 MG/325 MG TAB PO PRN ×5 (02:46→21:05)
[2016-09-20] MEDS: HYDROCORTISONE 1% CREAM 30 GM TOPICAL SCH ×3 (05:24→21:10)
[2016-09-20] MEDS: DOCUSATE SODIUM 100 MG CAP PO SCH ×2 (07:38→21:05)
[2016-09-20] MEDS: SODIUM CHLORIDE 0.9% FLUSH 5 ML FLUSH IVF SCH ×2 (07:38→21:00)
[2016-09-20] MEDS: GABAPENTIN 300 MG CAP PO SCH ×3 (07:38→18:04)
[2016-09-20] MEDS: REMOVE OLD PATCH T-DERMAL SCH (07:38)
[2016-09-20] MEDS: FAMOTIDINE 20 MG TAB PO SCH ×2 (07:38→21:05)
[2016-09-20] MEDS: NICOTINE 21 MG/24 HR PATCH T-DERMAL SCH (07:38)
[2016-09-20] MEDS: SERTRALINE HCL 50 MG TAB PO SCH (07:38)
[2016-09-20] MEDS: LACTULOSE SYRUP 20 GM/30 ML CUP PO SCH (07:38)
[2016-09-20 08:35] VITALS: BP 124/77; PULSE 80; RESP 20; TEMP 96.7; O2SAT 96
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
[2016-09-20 12:00] VITALS: BP 140/90; PULSE 102; RESP 20; TEMP 97.3; O2SAT 98
[2016-09-20] MEDS: HYDROmorphone HCL 2 MG TAB PO PRN (14:51)
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
[2016-09-20] MEDS: ENOXAPARIN SODIUM 40 MG/0.4 ML SYRINGE SQ SCH (16:14)
[2016-09-20 16:20] VITALS: BP 135/81; PULSE 79; RESP 20; TEMP 97.9; O2SAT 97
[2016-09-20 20:40] VITALS: BP 134/78; PULSE 87; RESP 17; TEMP 98.5; O2SAT 96
[2016-09-20] MEDS: traZODone HCL 100 MG TAB PO SCH (21:05)
[2016-09-21] MEDS: oxyCODONE/ACETAMINOPHEN 10 MG/325 MG TAB PO PRN ×5 (03:18→23:38)
[2016-09-21] MEDS: HYDROCORTISONE 1% CREAM 30 GM TOPICAL SCH ×3 (04:26→21:17)
[2016-09-21] MEDS: SUMAtriptan SUCCINATE 50 MG TAB PO PRN (06:13)
[2016-09-21 08:52] VITALS: BP 116/72; PULSE 76; RESP 18; TEMP 97.8; O2SAT 96
[2016-09-21] MEDS: FAMOTIDINE 20 MG TAB PO SCH ×2 (09:51→21:14)
[2016-09-21] MEDS: SERTRALINE HCL 50 MG TAB PO SCH (09:51)
[2016-09-21] MEDS: NICOTINE 21 MG/24 HR PATCH T-DERMAL SCH (09:51)
[2016-09-21] MEDS: GABAPENTIN 300 MG CAP PO SCH ×3 (09:52→18:11)
[2016-09-21] MEDS: LACTULOSE SYRUP 20 GM/30 ML CUP PO SCH (09:52)
[2016-09-21] MEDS: DOCUSATE SODIUM 100 MG CAP PO SCH ×2 (09:52→21:14)
[2016-09-21] MEDS: REMOVE OLD PATCH T-DERMAL SCH (09:52)
[2016-09-21] MEDS: SODIUM CHLORIDE 0.9% FLUSH 5 ML FLUSH IVF SCH ×2 (09:53→21:00)
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
[2016-09-21 12:12] VITALS: BP 125/75; PULSE 88; RESP 18; TEMP 98; O2SAT 95
[2016-09-21] MEDS: ENOXAPARIN SODIUM 40 MG/0.4 ML SYRINGE SQ SCH (15:49)
[2016-09-21] MEDS: HYDROmorphone HCL 2 MG TAB PO PRN (15:53)
[2016-09-21 16:11] VITALS: BP 128/93; PULSE 107; RESP 18; TEMP 97.3; O2SAT 94
[2016-09-21 20:00] VITALS: BP 115/63; PULSE 65; RESP 20; TEMP 97.4; O2SAT 96
[2016-09-21] MEDS: traZODone HCL 100 MG TAB PO SCH (21:14)
[2016-09-22] MEDS: oxyCODONE/ACETAMINOPHEN 10 MG/325 MG TAB PO PRN ×5 (05:28→22:00)
[2016-09-22] MEDS: SUMAtriptan SUCCINATE 50 MG TAB PO PRN (05:29)
[2016-09-22] MEDS: HYDROCORTISONE 1% CREAM 30 GM TOPICAL SCH ×3 (06:00→21:55)
[2016-09-22 08:09] VITALS: BP 117/77; PULSE 70; RESP 18; TEMP 97.3; O2SAT 97
[2016-09-22] MEDS: NICOTINE 21 MG/24 HR PATCH T-DERMAL SCH (09:02)
[2016-09-22] MEDS: REMOVE OLD PATCH T-DERMAL SCH (09:02)
[2016-09-22] MEDS: GABAPENTIN 300 MG CAP PO SCH ×3 (09:02→17:30)
[2016-09-22] MEDS: DOCUSATE SODIUM 100 MG CAP PO SCH ×2 (09:03→20:14)
[2016-09-22] MEDS: SERTRALINE HCL 50 MG TAB PO SCH (09:03)
[2016-09-22] MEDS: FAMOTIDINE 20 MG TAB PO SCH ×2 (09:03→20:14)
[2016-09-22] MEDS: LACTULOSE SYRUP 20 GM/30 ML CUP PO SCH (09:03)
[2016-09-22] MEDS: SODIUM CHLORIDE 0.9% FLUSH 5 ML FLUSH IVF SCH ×2 (09:03→20:16)
[2016-09-22 11:58] VITALS: BP 126/81; PULSE 92; RESP 19; TEMP 97.6; O2SAT 94
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
[2016-09-22 16:22] VITALS: BP 121/72; PULSE 82; RESP 18; TEMP 97.9; O2SAT 96
[2016-09-22] MEDS: ENOXAPARIN SODIUM 40 MG/0.4 ML SYRINGE SQ SCH (17:31)
[2016-09-22 20:01] VITALS: BP 123/81; PULSE 81; RESP 18; TEMP 98.5; O2SAT 95
[2016-09-22] MEDS: HYDROmorphone HCL 2 MG TAB PO PRN (20:14)
[2016-09-22] MEDS: traZODone HCL 100 MG TAB PO SCH (20:14)
[2016-09-22] MEDS: CHLORHEXIDINE GLUCONATE 4% SOLN 120 ML BTL TOP SCH (21:00)
[2016-09-23] MEDS: oxyCODONE/ACETAMINOPHEN 10 MG/325 MG TAB PO PRN ×5 (01:48→20:37)
[2016-09-23] MEDS: HYDROCORTISONE 1% CREAM 30 GM TOPICAL SCH ×3 (06:00→22:08)
[2016-09-23] MEDS: SERTRALINE HCL 50 MG TAB PO SCH (07:48)
[2016-09-23] MEDS: GABAPENTIN 300 MG CAP PO SCH ×3 (07:48→16:44)
[2016-09-23] MEDS: REMOVE OLD PATCH T-DERMAL SCH (07:48)
[2016-09-23] MEDS: NICOTINE 21 MG/24 HR PATCH T-DERMAL SCH (07:48)
[2016-09-23] MEDS: LACTULOSE SYRUP 20 GM/30 ML CUP PO SCH (07:48)
[2016-09-23] MEDS: SUMAtriptan SUCCINATE 50 MG TAB PO PRN ×2 (07:49→20:38)
[2016-09-23] MEDS: DOCUSATE SODIUM 100 MG CAP PO SCH ×2 (07:49→20:37)
[2016-09-23] MEDS: FAMOTIDINE 20 MG TAB PO SCH ×2 (07:49→20:36)
[2016-09-23] MEDS: SODIUM CHLORIDE 0.9% FLUSH 5 ML FLUSH IVF SCH ×2 (07:52→20:37)
[2016-09-23 08:46] VITALS: BP 117/80; PULSE 76; RESP 18; TEMP 97.9; O2SAT 98
[2016-09-23 09:44] LABS: AUTOMATED NEUTROPHIL # 2.4 TH/MM3 (1.8-7.7); EOSINOPHIL # 0.4 TH/MM3 (0-0.4); EOSINOPHIL % 7.4 % (0.0-4.0); HEMATOCRIT 39.3 % (39.0-51.0); HEMO FLAGS DIFF FINAL; LYMPHOCYTE # 1.6 TH/MM3 (1.0-4.8); MEAN CELL VOLUME 82.8 FL (80.0-100.0); MEAN CORPUSCULAR HGB CONC 33.8 % (32.0-36.0); MONO % 9.6 % (0.0-8.0); PLATELET COUNT 224 TH/MM3 (150-450); RED BLOOD COUNT 4.75 MIL/MM3 (4.50-5.90); RED CELL DISTRIBUTION WIDTH 13.4 % (11.6-17.2); WHITE BLOOD COUNT 4.8 TH/MM3 (4.0-11.0)
[2016-09-23 10:07] LABS: ALKALINE PHOSPHATASE 80 U/L (45-117); ALT (GPT) 40 U/L (12-78); ANION GAP 8 MEQ/L (5-15); AST (GOT) 13 U/L (15-37); BICARBONATE 28.8 MEQ/L (21.0-32.0); BLOOD UREA NITROGEN 19 MG/DL (7-18); CHLORIDE 103 MEQ/L (98-107); GLOMERULAR FILTRATION RATE 84 ML/MIN (>89); POTASSIUM 4.3 MEQ/L (3.5-5.1); SODIUM (NA) 140 MEQ/L (136-145); TOTAL BILIRUBIN ADULT 0.2 MG/DL (0.2-1.0)
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
[2016-09-23 13:00] VITALS: BP 145/91; PULSE 86; RESP 18; TEMP 97.8; O2SAT 96
[2016-09-23] MEDS: HYDROmorphone HCL 2 MG TAB PO PRN (14:22)
[2016-09-23] MEDS: ENOXAPARIN SODIUM 40 MG/0.4 ML SYRINGE SQ SCH (15:04)
[2016-09-23 16:23] VITALS: BP 137/83; PULSE 86; RESP 18; TEMP 98.9; O2SAT 97
[2016-09-23 20:00] VITALS: BP 133/78; PULSE 89; RESP 18; TEMP 97.9; O2SAT 96
[2016-09-23] MEDS: traZODone HCL 100 MG TAB PO SCH (20:36)
[2016-09-23] MEDS: CHLORHEXIDINE GLUCONATE 4% SOLN 120 ML BTL TOP SCH (20:36)
[2016-09-24] MEDS: oxyCODONE/ACETAMINOPHEN 10 MG/325 MG TAB PO PRN ×2 (05:19→09:07)
[2016-09-24] MEDS: HYDROCORTISONE 1% CREAM 30 GM TOPICAL SCH ×3 (05:26→19:41)
[2016-09-24 08:00] VITALS: BP 111/80; PULSE 79; RESP 16; TEMP 98.1; O2SAT 96
[2016-09-24] MEDS: REMOVE OLD PATCH T-DERMAL SCH (09:00)
[2016-09-24] MEDS: LACTULOSE SYRUP 20 GM/30 ML CUP PO SCH (09:00)
[2016-09-24] MEDS: SODIUM CHLORIDE 0.9% FLUSH 5 ML FLUSH IVF SCH ×2 (09:00→19:41)
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
[2016-09-24] MEDS: NICOTINE 21 MG/24 HR PATCH T-DERMAL SCH (09:05)
[2016-09-24] MEDS: SERTRALINE HCL 50 MG TAB PO SCH (09:06)
[2016-09-24] MEDS: DOCUSATE SODIUM 100 MG CAP PO SCH ×2 (09:07→19:40)
[2016-09-24] MEDS: GABAPENTIN 300 MG CAP PO SCH ×3 (09:07→18:24)
[2016-09-24] MEDS: FAMOTIDINE 20 MG TAB PO SCH ×2 (09:08→19:40)
[2016-09-24] MEDS ORDERED: PHENYLEPH/NS 1000 MCG/10 ML SYR IV ONE (09:20)
[2016-09-24] MEDS ORDERED: NEOSTIGMINE 3 MG/3 ML SYR IV ONE (09:20)
[2016-09-24] MEDS ORDERED: PROPOFOL 200 MG/20 ML AMP IV ONE (09:20)
[2016-09-24] MEDS ORDERED: LACTATED RINGER'S 1000 ML INJ 1,000 ML IV ONE (09:20)
[2016-09-24] MEDS ORDERED: ONDANSETRON HCL 4 MG/2 ML VIAL IV PUSH ONE (09:20)
[2016-09-24] MEDS ORDERED: fentaNYL CITRATE 250 MCG/5 ML AMP ONE ×2 (11:26)
[2016-09-24] MEDS ORDERED: ARTIFICIAL TEARS OPTH OINT 3.5 APPLIC/3.5 GM TUBO ONE (11:26)
[2016-09-24] MEDS ORDERED: ACETAMINOPHEN 1000 MG/100 ML VIAL IV ONE (11:26)
[2016-09-24] MEDS ORDERED: MIDAZOLAM HCL 2 MG/2 ML VIAL ONE (11:27)
[2016-09-24] MEDS ORDERED: FAMOTIDINE 20 MG/2 ML VIAL ONE (11:27)
[2016-09-24] MEDS ORDERED: ceFAZolin INJ 1,000 MG VIAL IV ONE (12:28)
[2016-09-24] MEDS ORDERED: VANCOMYCIN HCL 1000 MG VIAL OTHER ONE (12:33)
[2016-09-24] MEDS ORDERED: BACITRACIN TOP OINT 15 GM TUBE TOPICAL ONE (13:12)
[2016-09-24] MEDS ORDERED: GELFOAM SIZE 100 OTHER ONE (13:12)
[2016-09-24] MEDS ORDERED: GENTAMICIN SULFATE 80 MG/2 ML VIAL IRRIGATION ONE (13:12)
[2016-09-24] MEDS ORDERED: LIDOCAINE 1%/EPINEPHrine 1:100,000 SOLN 30 ML VIAL INFIL ONE (13:12)
[2016-09-24] MEDS ORDERED: THROMBIN (TOPICAL) 5,000 UNIT VIAL ONE (13:12)
[2016-09-24] MEDS ORDERED: MANNITOL 12.5 GM/50 ML VIAL IV ONE (13:15)
[2016-09-24] MEDS ORDERED: levETIRAcetam 500 MG/5 ML UDC ONE (13:15)
[2016-09-24] MEDS ORDERED: SODIUM CHLORIDE 0.9% FLUSH 5 ML FLUSH IVF SCH (14:30)
[2016-09-24] MEDS ORDERED: POTASSIUM CHLOR 20 MEQ PREMIX 100 ML IV PRN (14:30)
[2016-09-24] MEDS ORDERED: BISACODYL 10 MG SUPP RECTAL PRN (14:30)
[2016-09-24] MEDS ORDERED: RESP: ALBUTEROL 2.5 MG/3 ML NEB (PRN) INH (14:30)
[2016-09-24] MEDS ORDERED: SODIUM CHLORIDE 0.9% FLUSH 5 ML FLUSH IVF PRN (14:30)
[2016-09-24] MEDS ORDERED: MAGNESIUM SULFATE INJ 4 GM in SODIUM CHLORIDE 0.9% INJ 100 ML IV PRN (14:30)
[2016-09-24] MEDS ORDERED: MORPHINE SULFATE 4 MG/ML INJ IV PUSH PRN ×2 (14:30)
[2016-09-24] MEDS ORDERED: CALCIUM GLUCONATE 10% 1 GM/10 ML VIAL IV PRN (14:30)
[2016-09-24] MEDS ORDERED: MENTHOL LOZENGE BUCCAL PRN (14:30)
--- NOTE | 2016-09-24 15:01 | PD.OP ---
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 He had a prior decompressive craniectomy. A cranioplasty was indicated. The step-by -step details of the procedure, indications, alternatives, risks and potential complications were fully discussed with the patient. The patient fully understood. All his questions were answered. No guarantees were given. The patient voiced requesting the procedure and provided informed consents. He was offered the alternative of delaying the procedure and continuing with nonsurgical management. DETAILS OF THE SURGICAL PROCEDURE The patient was endotracheally intubated and mechanically ventilated. A Butts catheter, bilateral EMILIANO hose and sequential compression devices were placed and kept throughout the procedure. The patient was positioned supine on a 3080 table over a soft mattress. The head was placed on a gel doughnut. All pressure points were carefully padded with egg crate mattress. The eyes were tapped shut after ointment was applied by the anesthesiologist to prevent corneal abrasion. A Peggy hugger was placed over the exposed lower body to maintain control of the core body temperature. The old incision was marked and infiltrated with 1% lidocaine with epinephrine 1:100, 000 dilution. The skin incision was made with a #10 blade. Small cranial bleeders were controlled with the bipolar and Odette clips were applied to the scalp edges. Then, the scalp flap was carefully elevated and retracted anteriorly, exposing the edges of the craniectomy defect. Hemostasis was secured and the incision was irrigated with a large amount of antibiotic solution. Then, the scalp was covered with a moist Ray-Josh soaked in antibiotic solution and fishhooks were applied to the incision. There was an area of dural defect which was reconstructed using a piece of Duragen. The patient's craniotomy flap was carefully washed with antibiotic solution and a reconstructive cranioplasty was performed by carefully placing autologous bone fragments which were carefully secured using striker plates and screws. The flap was secured using [place] plates and 4 mm screws. A solid placement of the bone was achieved with good very cosmetic result. The incision was thoroughly irrigated with antibiotic solution. The closure was then performed in layers. The temporalis fascia was closed with interrupted 0 Vicryl sutures. The galea was closed with interrupted 3-0 Vicryl sutures. [place] were applied to the skin. A 7 mm Shawn-Torrez drain was left in the subgaleal space and externalized through the a separate stab incision and secured with 3-0 nylon. A sterile dressing was placed. At the end of the procedure the sponge, needle and instrument counts were all correct. Estimated blood loss was less than 50-60 cc. No blood transfusion was given. No intraoperative complications occurred. The patient received prophylactic antibiotics. The patient was then transferred to the recovery room in stable condition. Harman Pizano MD September 24, 2016 15:01
[2016-09-24] MEDS ORDERED: *morphine SULFATE 8 MG/ML PERIprocedure ONLY ONE (15:02)
[2016-09-24] MEDS ORDERED: CALCIUM GLUCONATE INJ 1 GM in SODIUM CHLORIDE 0.9% INJ 100 ML IV PRN (15:30)
[2016-09-24 16:00] VITALS: BP 137/84; PULSE 85; RESP 6; TEMP 98.3; O2SAT 97
[2016-09-24] MEDS: ENOXAPARIN SODIUM 40 MG/0.4 ML SYRINGE SQ SCH (16:00)
[2016-09-24] MEDS: SODIUM CHLOR 0.9% 1000 ML INJ 1,000 ML IV SCH (16:00)
[2016-09-24 17:00] VITALS: BP 131/88; PULSE 90; RESP 10; TEMP 98.6; O2SAT 97
[2016-09-24 18:00] VITALS: BP 138/88; PULSE 86; RESP 9; TEMP 98.3; O2SAT 98
[2016-09-24] MEDS: HYDROmorphone HCL PF 1 MG/ML VIAL IV PUSH PRN ×2 (18:23→22:11)
[2016-09-24] MEDS: traZODone HCL 100 MG TAB PO SCH (19:40)
[2016-09-24] MEDS: oxyCODONE/ACETAMINOPHEN 5 MG/325 MG TAB PO PRN (19:40)
[2016-09-24 20:00] VITALS: BP 141/98; PULSE 99; RESP 18; TEMP 98.5; O2SAT 94
[2016-09-24 22:00] VITALS: PULSE 86
[2016-09-24] MEDS: SUMAtriptan SUCCINATE 50 MG TAB PO PRN (23:04)
[2016-09-25] VITALS (10 sets, daily range): BP systolic 112–153; BP diastolic 73–97; PULSE 66–87; RESP 10–20; TEMP 97.7–98.9; O2SAT 96–100
[2016-09-25] MEDS: VANCOMYCIN INJ 1,000 MG in SODIUM CHLOR 0.9% 250 ML INJ 250 ML IV SCH ×2 (00:37→12:50)
[2016-09-25] MEDS: oxyCODONE/ACETAMINOPHEN 5 MG/325 MG TAB PO PRN ×6 (00:37→20:51)
[2016-09-25] MEDS: levETIRAcetam INJ 500 MG in SODIUM CHLORIDE 0.9% INJ 100 ML IV SCH ×2 (00:37→12:48)
[2016-09-25] MEDS: HYDROmorphone HCL PF 1 MG/ML VIAL IV PUSH PRN ×5 (02:35→18:47)
[2016-09-25 04:35] LABS: AUTOMATED NEUTROPHIL # 6.5 TH/MM3 (1.8-7.7); BASOPHIL % 0.4 % (0.0-2.0); EOSINOPHIL % 0.5 % (0.0-4.0); HEMATOCRIT 37.9 % (39.0-51.0); HEMO FLAGS DIFF FINAL; LYMPH % 20.3 % (9.0-44.0); LYMPHOCYTE # 1.9 TH/MM3 (1.0-4.8); MEAN CELL VOLUME 83.7 FL (80.0-100.0); MEAN CORPUSCULAR HEMOGLOBIN 27.2 PG (27.0-34.0); MEAN CORPUSCULAR HGB CONC 32.5 % (32.0-36.0); MONO % 9.1 % (0.0-8.0); NEUT % 69.7 % (16.0-70.0); PLATELET COUNT 251 TH/MM3 (150-450); RED BLOOD COUNT 4.53 MIL/MM3 (4.50-5.90); RED CELL DISTRIBUTION WIDTH 13.2 % (11.6-17.2); WHITE BLOOD COUNT 9.3 TH/MM3 (4.0-11.0)
[2016-09-25 04:54] LABS: BICARBONATE 29.6 MEQ/L (21.0-32.0); POTASSIUM 3.7 MEQ/L (3.5-5.1)
[2016-09-25] MEDS: HYDROCORTISONE 1% CREAM 30 GM TOPICAL SCH ×3 (06:00→22:00)
[2016-09-25] MEDS ORDERED: BISACODYL 10 MG SUPP RECTAL ONE (08:30)
[2016-09-25] MEDS: LACTULOSE SYRUP 20 GM/30 ML CUP PO SCH ×2 (08:32→18:17)
[2016-09-25] MEDS: NICOTINE 21 MG/24 HR PATCH T-DERMAL SCH (08:32)
[2016-09-25] MEDS: GABAPENTIN 300 MG CAP PO SCH ×3 (08:45→18:15)
[2016-09-25] MEDS: DOCUSATE SODIUM 100 MG CAP PO SCH ×2 (08:45→20:50)
[2016-09-25] MEDS: SERTRALINE HCL 50 MG TAB PO SCH (08:46)
[2016-09-25] MEDS: FAMOTIDINE 20 MG TAB PO SCH ×2 (08:46→20:50)
[2016-09-25] MEDS: BISACODYL EC 5 MG TABEC PO ONE ×2 (08:46→18:16)
[2016-09-25] MEDS: REMOVE OLD PATCH T-DERMAL SCH (09:00)
[2016-09-25] MEDS ORDERED: PANTOPRAZOLE SOD 40 MG DELAYED RELEASE TAB PO SCH (09:00)
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
--- NOTE | 2016-09-25 12:44 | HHI.NSPN ---
Note Status Status: Progress Note Interval History Interval History 35 y/o male with TBI, he previously underwent emergent right decompressive craniectomy with evacuation of SDH on 08/12/16. A follow up CT Head shows improved cerebral edema, he underwent right cranioplasty on 09/24/16. 09/25: c/o of surgical pain, Percocet alone not controlling, requesting Dilauded. Remains clinically stable in ISC. Labs, Micro, & Vital Signs Results Date Time Temp Pulse Resp B/P Pulse Ox O2 Delivery O2 Flow Rate FiO2 09/25/16 11:43 14 09/25/16 11:00 69 09/25/16 10:00 18 09/25/16 08:00 98.8 76 16 134/81 97 09/25/16 06:00 78 09/25/16 04:00 98.5 67 16 133/82 100 09/25/16 04:00 67 09/25/16 02:00 68 09/25/16 00:00 98.7 66 10 113/73 98 09/25/16 00:00 66 09/24/16 22:00 86 09/24/16 20:00 99 09/24/16 20:00 98.5 99 18 141/98 94 09/24/16 18:00 98.3 86 9 138/88 98 09/24/16 17:00 98.6 90 10 131/88 97 09/24/16 16:00 98.3 85 6 137/84 97 09/24/16 15:45 98.6 86 15 135/91 96 Nasal Cannula 3 09/24/16 15:30 92 15 138/80 96 Nasal Cannula 3 09/24/16 15:00 94 16 142/80 96 Nasal Cannula 3 09/24/16 14:45 84 15 143/83 97 Nasal Cannula 3 09/24/16 14:30 76 15 131/77 97 Nasal Cannula 3 09/24/16 14:15 79 14 135/74 97 Nasal Cannula 3 09/24/16 14:00 97.6 76 14 145/93 100 Nasal Cannula 3 09/25/16 07:00 Intake Total 3354 ml Output Total 3500 ml Balance -146 ml Constitutional Vital Signs Date Time Temp Pulse Resp B/P Pulse Ox O2 Delivery O2 Flow Rate FiO2 09/25/16 11:43 14 09/25/16 11:00 69 09/25/16 10:00 18 09/25/16 08:00 98.8 76 16 134/81 97 09/25/16 06:00 78 09/25/16 04:00 98.5 67 16 133/82 100 09/25/16 04:00 67 09/25/16 02:00 68 09/25/16 00:00 98.7 66 10 113/73 98 09/25/16 00:00 66 09/24/16 22:00 86 09/24/16 20:00 99 09/24/16 20:00 98.5 99 18 141/98 94 09/24/16 18:00 98.3 86 9 138/88 98 09/24/16 17:00 98.6 90 10 131/88 97 09/24/16 16:00 98.3 85 6 137/84 97 09/24/16 15:45 98.6 86 15 135/91 96 Nasal Cannula 3 09/24/16 15:30 92 15 138/80 96 Nasal Cannula 3 09/24/16 15:00 94 16 142/80 96 Nasal Cannula 3 09/24/16 14:45 84 15 143/83 97 Nasal Cannula 3 09/24/16 14:30 76 15 131/77 97 Nasal Cannula 3 09/24/16 14:15 79 14 135/74 97 Nasal Cannula 3 09/24/16 14:00 97.6 76 14 145/93 100 Nasal Cannula 3 09/25/16 07:00 Intake Total 3354 ml Output Total 3500 ml Balance -146 ml Review of Systems/Exam Exam Mr. Ortega is awake and oriented to time, place and person. Speech is slow, but fluent. Right wound is clean and dry with dressing in place. NORM drain with moderate serosanguineous drainage. Cranial nerve examination: pupils to be equal, round and reactive to light. Gross extra-ocular movements are intact. Left supranuclear weakness. Motor: moving right side 4/5, moves left lower extremity 2/5, left upper plegia Sensory: reports intact to light touch x 4, R>L Left Babinski response, left ankle clonus. Medications Current Medications Current Medications Medications (Trade) Dose Ordered Sig/Charleen Route PRN Reason Start Time Stop Time Status Last Admin Dose Admin Enalaprilat (Vasotec Inj) 1.25 mg Q8H PRN IV SBP>180, DBP>95 08/12/16 08:45 IV Flush (NS Flush) 2 ml UNSCH PRN IVF FLUSH AFTER USING IV ACCESS 08/12/16 10:00 IV Flush (NS Flush) 2 ml BID IVF 08/12/16 21:00 09/24/16 19:41 Bisacodyl (Dulcolax Supp) 10 mg DAILY PRN RECTAL CONSTIPATION 08/12/16 11:00 08/15/16 18:21 Docusate Sodium (Colace) 100 mg BID PO 08/12/16 21:00 09/25/16 08:45 Ondansetron HCl (Zofran Inj) 4 mg Q6H PRN IV NAUSEA OR VOMITING 08/12/16 11:00 08/15/16 17:35 Acetaminophen (Tylenol) 650 mg Q4H PRN PO TEMPERATURE > 101.5 F 08/12/16 10:00 09/14/16 04:47 Lactulose (Lactulose Liq) 30 ml DAILY PO 08/14/16 09:00 09/25/16 08:32 Famotidine (Pepcid) 20 mg BID PO 08/16/16 21:00 09/25/16 08:46 Sumatriptan Succinate (Imitrex) 50 mg DAILY PRN PO MIGRAINE HEADACHE 08/18/16 09:15 09/24/16 23:04 Enoxaparin Sodium (Lovenox Inj) 40 mg Q24H SQ 08/21/16 16:00 Hold 09/22/16 17:31 Nicotine (Habitrol 21 Mg Patch.24 Hr) 1 patch DAILY T-DERMAL 08/23/16 12:00 09/25/16 08:32 Miscellaneous Information 1 DAILY T-DERMAL 08/24/16 09:00 09/24/16 09:00 Gabapentin (Neurontin) 600 mg TID PO 08/26/16 13:00 09/25/16 12:49 Hydrocortisone (Hydrocortisone 1% Cream) 1 applic Q8HR TOPICAL 09/02/16 14:00 09/25/16 06:00 Miscellaneous (Pill Splitter) 1 ea UNSCH PRN OTHER SEE LABEL COMMENTS 09/04/16 11:00 Sertraline HCl (Zoloft) 75 mg DAILY PO 09/10/16 09:00 09/25/16 08:46 Trazodone HCl 150 mg 150 mg HS PO 09/12/16 21:00 09/24/16 19:40 Levetriacetam/ Sodium Chloride (Keppra Inj/NS Inj) 105 ml @ 400 mls/hr Q12H IV 09/25/16 01:00 09/25/16 12:48 Pantoprazole Sodium 40 mg 40 mg DAILY PO 09/25/16 09:00 09/25/16 08:32 Potassium Chloride 100 ml @ 50 mls/hr UNSCH PRN IV POTASSIUM LESS THAN 4 09/24/16 14:30 Magnesium Sulfate/ Sodium Chloride (Magnesium Sulfate Inj/NS Inj) 108 ml @ 108 mls/hr UNSCH PRN IV MAGNESIUM LESS THAN 2 09/24/16 14:30 Menthol (Oaks Alvarez) 1 lozenge UNSCH PRN BUCCAL SORE THROAT 09/24/16 14:30 Oxycodone/ Acetaminophen 1 tab 1 tab Q4H PRN PO PAIN SCALE 1 TO 5 09/24/16 14:30 09/25/16 12:49 Calcium Gluconate 1 gm/Sodium Chloride 110 ml @ 110 mls/hr UNSCH PRN IV SEE LABEL COMMENTS 09/24/16 15:30 Sodium Chloride (NS 1000 ml Inj) 1,000 ml @ 30 mls/hr Q24H IV 09/24/16 16:00 09/24/16 16:00 Hydromorphone HCl (Dilaudid Pf Inj) 1 mg Q4H PRN IV PUSH PAIN SCALE 6 TO 10 09/24/16 18:15 09/25/16 14:54 Medical Decision Making MDM Remarks 35 y/o male TBI, s/p right decompressive craniectomy with evac of SDH on 08/12/16 , stable mental status with persistent left hemiplegia f/u CT Head 09/19 shows improved cerebral edema, subdural effusion within the surgical flap Plan Plan Remarks cleared to transfer back to , restart PT, OT. ok OOB to chair, encourage mobilization keep NORM drain to suction cont SCDs and TEDs for dvt prophylaxis protonix for stress ulcer prophylaxis Promise Todd September 25, 2016 12:44
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
[2016-09-25] MEDS: SODIUM CHLORIDE 0.9% FLUSH 5 ML FLUSH IVF SCH ×2 (18:17→20:52)
[2016-09-25] MEDS: SODIUM CHLOR 0.9% 1000 ML INJ 1,000 ML IV SCH (18:19)
[2016-09-25] MEDS: traZODone HCL 100 MG TAB PO SCH (20:50)
[2016-09-25] MEDS: SUMAtriptan SUCCINATE 50 MG TAB PO PRN (20:51)
[2016-09-26] VITALS: BP 116/70; PULSE 66; RESP 20; TEMP 97.7; O2SAT 95
[2016-09-26] MEDS: HYDROmorphone HCL PF 1 MG/ML VIAL IV PUSH PRN ×6 (00:02→20:31)
[2016-09-26] MEDS: levETIRAcetam INJ 500 MG in SODIUM CHLORIDE 0.9% INJ 100 ML IV SCH ×2 (01:29→12:33)
[2016-09-26] MEDS: oxyCODONE/ACETAMINOPHEN 5 MG/325 MG TAB PO PRN ×5 (01:29→19:13)
[2016-09-26 04:00] VITALS: BP 103/62; PULSE 73; RESP 20; TEMP 97; O2SAT 95
[2016-09-26] MEDS: HYDROCORTISONE 1% CREAM 30 GM TOPICAL SCH ×3 (05:39→20:31)
[2016-09-26] MEDS: REMOVE OLD PATCH T-DERMAL SCH (08:31)
[2016-09-26] MEDS: NICOTINE 21 MG/24 HR PATCH T-DERMAL SCH (08:31)
[2016-09-26] MEDS: FAMOTIDINE 20 MG TAB PO SCH ×2 (08:32→20:31)
[2016-09-26] MEDS: GABAPENTIN 300 MG CAP PO SCH ×3 (08:32→17:00)
[2016-09-26] MEDS: LACTULOSE SYRUP 20 GM/30 ML CUP PO SCH (08:32)
[2016-09-26] MEDS: SERTRALINE HCL 50 MG TAB PO SCH (08:32)
[2016-09-26] MEDS: SODIUM CHLORIDE 0.9% FLUSH 5 ML FLUSH IVF SCH ×2 (08:33→20:31)
[2016-09-26] MEDS: DOCUSATE SODIUM 100 MG CAP PO SCH ×2 (08:33→20:31)
[2016-09-26 09:10] VITALS: BP 146/80; PULSE 79; RESP 18; TEMP 97.6; O2SAT 98
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
[2016-09-26 12:08] VITALS: BP 149/93; PULSE 62; RESP 20; TEMP 98.5; O2SAT 96
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
[2016-09-26] MEDS: SODIUM CHLOR 0.9% 1000 ML INJ 1,000 ML IV SCH (16:00)
[2016-09-26 17:48] VITALS: BP 127/73; PULSE 18; RESP 18; TEMP 97.8; O2SAT 93
[2016-09-26 20:00] VITALS: BP 136/77; PULSE 85; RESP 20; TEMP 98.8; O2SAT 98
[2016-09-26] MEDS: traZODone HCL 100 MG TAB PO SCH (20:31)
[2016-09-27] VITALS: BP 119/69; PULSE 72; RESP 20; TEMP 96.7; O2SAT 95
[2016-09-27] MEDS: levETIRAcetam INJ 500 MG in SODIUM CHLORIDE 0.9% INJ 100 ML IV SCH ×2 (01:07→12:26)
[2016-09-27] MEDS: HYDROmorphone HCL PF 1 MG/ML VIAL IV PUSH PRN ×6 (01:09→21:22)
[2016-09-27] MEDS: oxyCODONE/ACETAMINOPHEN 5 MG/325 MG TAB PO PRN ×4 (03:23→23:31)
[2016-09-27] MEDS: SUMAtriptan SUCCINATE 50 MG TAB PO PRN ×2 (03:25→10:01)
[2016-09-27 04:00] VITALS: BP 113/69; PULSE 72; RESP 20; TEMP 96; O2SAT 97
[2016-09-27] MEDS: HYDROCORTISONE 1% CREAM 30 GM TOPICAL SCH ×3 (06:23→21:16)
[2016-09-27] MEDS: FAMOTIDINE 20 MG TAB PO SCH ×2 (08:01→21:12)
[2016-09-27] MEDS: SERTRALINE HCL 50 MG TAB PO SCH (08:01)
[2016-09-27] MEDS: NICOTINE 21 MG/24 HR PATCH T-DERMAL SCH (08:01)
[2016-09-27] MEDS: REMOVE OLD PATCH T-DERMAL SCH (08:01)
[2016-09-27] MEDS: LACTULOSE SYRUP 20 GM/30 ML CUP PO SCH (08:01)
[2016-09-27] MEDS: GABAPENTIN 300 MG CAP PO SCH ×3 (08:01→17:34)
[2016-09-27] MEDS: DOCUSATE SODIUM 100 MG CAP PO SCH ×2 (08:01→21:13)
[2016-09-27] MEDS: SODIUM CHLORIDE 0.9% FLUSH 5 ML FLUSH IVF SCH ×2 (08:05→21:00)
[2016-09-27 08:22] VITALS: BP 126/88; PULSE 63; RESP 20; TEMP 97.7; O2SAT 97
--- NOTE | 2016-09-27 11:05 | HHI.NSPN ---
(Promise Todd) Note Status Status: Progress Note (Promise Todd) Interval History Interval History 35 y/o male with TBI, he previously underwent emergent right decompressive craniectomy with evacuation of SDH on 08/12/16. A follow up CT Head shows improved cerebral edema, he underwent right cranioplasty on 09/24/16. 09/25: c/o of surgical pain, Percocet alone not controlling, requesting Dilauded. Remains clinically stable in ISC. 09/27: NORM drain with minimal drainage, neuro stable. (Promise Todd) Labs, Micro, & Vital Signs Results Date Time Temp Pulse Resp B/P Pulse Ox O2 Delivery O2 Flow Rate FiO2 09/27/16 08:22 97.7 63 20 126/88 97 09/27/16 04:00 96.0 72 20 113/69 97 09/27/16 00:00 96.7 72 20 119/69 95 09/27/16 00:00 96.7 72 20 119/69 95 09/26/16 20:00 98.8 85 20 136/77 98 09/26/16 17:48 97.8 18 18 127/73 93 09/26/16 12:08 98.5 62 20 149/93 96 09/27/16 07:00 Intake Total 480 ml Output Total 1825 ml Balance -1345 ml Constitutional Vital Signs Date Time Temp Pulse Resp B/P Pulse Ox O2 Delivery O2 Flow Rate FiO2 09/27/16 08:22 97.7 63 20 126/88 97 09/27/16 04:00 96.0 72 20 113/69 97 09/27/16 00:00 96.7 72 20 119/69 95 09/27/16 00:00 96.7 72 20 119/69 95 09/26/16 20:00 98.8 85 20 136/77 98 09/26/16 17:48 97.8 18 18 127/73 93 09/26/16 12:08 98.5 62 20 149/93 96 09/27/16 07:00 Intake Total 480 ml Output Total 1825 ml Balance -1345 ml (Promise Todd) Review of Systems/Exam Exam Mr. Ortega is awake and oriented to time, place and person. Speech is slow, but fluent. Right wound is clean and dry with dressing in place. NORM drain with minimal drainage. Cranial nerve examination: pupils to be equal, round and reactive to light. Gross extra-ocular movements are intact. Left supranuclear weakness. Motor: moving right side 4/5, moves left lower extremity 2/5, left upper plegia Sensory: reports intact to light touch x 4, R>L Left Babinski response, left ankle clonus. (Promise Todd) Medical Decision Making MDM Remarks 35 y/o male TBI, s/p right decompressive craniectomy with evac of SDH on 08/12/16 , stable mental status with persistent left hemiplegia f/u CT Head 09/19 shows improved cerebral edema, subdural effusion within the surgical flap (Promise Todd) Plan Plan Remarks NORM drain dc'ed, steri-strip placed over drain site cont therapy rehab efforts ok to dc to rehab from N[facility] standpoint stu dc 10/08/16 (Promise Todd) Attending Statement The exam, history, and the medical decision-making described in the above note were completed with the assistance of the mid-level provider. I reviewed and agree with the findings presented. I attest that I had a [id number] encounter with the patient on the same day, and personally performed and documented my assessment and findings in the medical record. (Harman Pizano MD) Promise Todd Sep 27, 2016 11:05 Harman Pizano MD Sep 28, 2016 20:17
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
[2016-09-27 13:52] VITALS: BP 145/86; PULSE 82; RESP 20; TEMP 98.2; O2SAT 96
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
[2016-09-27] MEDS: SODIUM CHLOR 0.9% 1000 ML INJ 1,000 ML IV SCH ×2 (17:16→23:33)
[2016-09-27 20:00] VITALS: BP 120/82; PULSE 77; RESP 20; TEMP 98.1; O2SAT 95
[2016-09-27] MEDS: traZODone HCL 100 MG TAB PO SCH (21:13)
[2016-09-28] VITALS: BP 117/63; PULSE 64; RESP 18; TEMP 96.1; O2SAT 96
[2016-09-28] MEDS: levETIRAcetam INJ 500 MG in SODIUM CHLORIDE 0.9% INJ 100 ML IV SCH ×2 (01:25→12:56)
[2016-09-28] MEDS: HYDROmorphone HCL PF 1 MG/ML VIAL IV PUSH PRN ×6 (01:26→21:13)
[2016-09-28] MEDS: oxyCODONE/ACETAMINOPHEN 5 MG/325 MG TAB PO PRN ×4 (04:32→17:08)
[2016-09-28] MEDS: HYDROCORTISONE 1% CREAM 30 GM TOPICAL SCH ×2 (06:12→14:01)
[2016-09-28 06:34] VITALS: BP 111/61; PULSE 73; RESP 20; TEMP 96.8; O2SAT 96
[2016-09-28 08:00] VITALS: BP 130/93; PULSE 73; RESP 18; TEMP 97.2; O2SAT 96
[2016-09-28] MEDS: GABAPENTIN 300 MG CAP PO SCH ×3 (08:42→18:15)
[2016-09-28] MEDS: DOCUSATE SODIUM 100 MG CAP PO SCH ×2 (08:43→21:13)
[2016-09-28] MEDS: REMOVE OLD PATCH T-DERMAL SCH (08:43)
[2016-09-28] MEDS: NICOTINE 21 MG/24 HR PATCH T-DERMAL SCH (08:43)
[2016-09-28] MEDS: FAMOTIDINE 20 MG TAB PO SCH ×2 (08:43→21:14)
[2016-09-28] MEDS: SERTRALINE HCL 50 MG TAB PO SCH (08:43)
[2016-09-28] MEDS: LACTULOSE SYRUP 20 GM/30 ML CUP PO SCH (08:43)
[2016-09-28] MEDS: SODIUM CHLORIDE 0.9% FLUSH 5 ML FLUSH IVF SCH ×2 (09:00→21:27)
[2016-09-28 12:00] VITALS: BP 114/65; PULSE 78; RESP 17; TEMP 98; O2SAT 96
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
[2016-09-28] MEDS: SUMAtriptan SUCCINATE 50 MG TAB PO PRN (15:43)
[2016-09-28 16:04] VITALS: BP 131/96; PULSE 78; RESP 19; TEMP 97.1; O2SAT 96
[2016-09-28 20:00] VITALS: BP 125/76; PULSE 80; RESP 18; TEMP 98.1; O2SAT 95
[2016-09-28] MEDS: traZODone HCL 100 MG TAB PO SCH (21:12)
[2016-09-29] VITALS: BP 140/52; PULSE 76; RESP 18; TEMP 97.3; O2SAT 94
[2016-09-29] MEDS: oxyCODONE/ACETAMINOPHEN 5 MG/325 MG TAB PO PRN ×6 (00:44→23:54)
[2016-09-29] MEDS: levETIRAcetam INJ 500 MG in SODIUM CHLORIDE 0.9% INJ 100 ML IV SCH (00:44)
[2016-09-29] MEDS: HYDROCORTISONE 1% CREAM 30 GM TOPICAL SCH ×4 (00:45→22:31)
[2016-09-29] MEDS: HYDROmorphone HCL PF 1 MG/ML VIAL IV PUSH PRN ×6 (02:17→22:31)
[2016-09-29 04:00] VITALS: BP 134/72; PULSE 75; RESP 18; TEMP 97; O2SAT 97
[2016-09-29 08:00] VITALS: BP 128/62; PULSE 74; RESP 18; TEMP 96.7; O2SAT 95
[2016-09-29] MEDS: NICOTINE 21 MG/24 HR PATCH T-DERMAL SCH (08:09)
[2016-09-29] MEDS: REMOVE OLD PATCH T-DERMAL SCH (08:09)
[2016-09-29] MEDS: GABAPENTIN 300 MG CAP PO SCH ×3 (08:10→17:33)
[2016-09-29] MEDS: SERTRALINE HCL 50 MG TAB PO SCH (08:10)
[2016-09-29] MEDS: LACTULOSE SYRUP 20 GM/30 ML CUP PO SCH (08:11)
[2016-09-29] MEDS: DOCUSATE SODIUM 100 MG CAP PO SCH ×2 (08:11→22:30)
[2016-09-29] MEDS: levETIRAcetam 500 MG TAB PO SCH ×2 (08:11→22:30)
[2016-09-29] MEDS: SUMAtriptan SUCCINATE 50 MG TAB PO PRN (08:12)
[2016-09-29] MEDS: SODIUM CHLORIDE 0.9% FLUSH 5 ML FLUSH IVF SCH ×2 (08:13→22:32)
[2016-09-29] MEDS: FAMOTIDINE 20 MG TAB PO SCH ×2 (08:13→22:30)
[2016-09-29 11:53] VITALS: BP 124/75; PULSE 72; RESP 16; TEMP 97.5; O2SAT 98
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
[2016-09-29 16:00] VITALS: BP 118/65; PULSE 80; RESP 19; TEMP 97.4; O2SAT 98
[2016-09-29] MEDS: SODIUM CHLOR 0.9% 1000 ML INJ 1,000 ML IV SCH (16:00)
[2016-09-29 20:00] VITALS: BP_SYST 104; BP_SYST 118; BP_DIAS 63; BP_DIAS 76; PULSE 77; PULSE 86; RESP 18; TEMP 97.9; O2SAT 94; O2SAT 96
[2016-09-29] MEDS: traZODone HCL 100 MG TAB PO SCH (22:30)
[2016-09-30] VITALS: BP_SYST 108; BP_SYST 129; BP_DIAS 64; BP_DIAS 88; PULSE 84; RESP 18; TEMP 97.3; O2SAT 94; O2SAT 97
[2016-09-30 04:00] VITALS: BP 111/69; PULSE 73; RESP 18; TEMP 96.9; O2SAT 95
[2016-09-30] MEDS: HYDROmorphone HCL PF 1 MG/ML VIAL IV PUSH PRN ×5 (04:33→21:22)
[2016-09-30] MEDS: HYDROCORTISONE 1% CREAM 30 GM TOPICAL SCH ×3 (06:36→20:58)
[2016-09-30] MEDS: oxyCODONE/ACETAMINOPHEN 5 MG/325 MG TAB PO PRN ×4 (06:37→19:04)
[2016-09-30 08:49] VITALS: BP 118/73; PULSE 92; RESP 18; TEMP 96.7; O2SAT 95
[2016-09-30] MEDS: levETIRAcetam 500 MG TAB PO SCH ×2 (08:51→20:57)
[2016-09-30] MEDS: DOCUSATE SODIUM 100 MG CAP PO SCH ×2 (08:51→20:57)
[2016-09-30] MEDS: SERTRALINE HCL 50 MG TAB PO SCH (08:51)
[2016-09-30] MEDS: FAMOTIDINE 20 MG TAB PO SCH ×2 (08:51→20:57)
[2016-09-30] MEDS: LACTULOSE SYRUP 20 GM/30 ML CUP PO SCH (08:51)
[2016-09-30] MEDS: GABAPENTIN 300 MG CAP PO SCH ×3 (08:51→17:08)
[2016-09-30] MEDS: SODIUM CHLORIDE 0.9% FLUSH 5 ML FLUSH IVF SCH ×2 (08:52→20:57)
[2016-09-30] MEDS: REMOVE OLD PATCH T-DERMAL SCH (08:52)
[2016-09-30] MEDS: NICOTINE 21 MG/24 HR PATCH T-DERMAL SCH (08:53)
[2016-09-30] MEDS: SUMAtriptan SUCCINATE 50 MG TAB PO PRN (10:15)
[2016-09-30 12:00] VITALS: BP 154/88; PULSE 88; RESP 21; TEMP 98.5; O2SAT 98
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
[2016-09-30] MEDS: SODIUM CHLOR 0.9% 1000 ML INJ 1,000 ML IV SCH (15:23)
[2016-09-30] MEDS: ENOXAPARIN SODIUM 40 MG/0.4 ML SYRINGE SQ SCH (15:23)
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
[2016-09-30 16:48] VITALS: BP 115/66; PULSE 88; RESP 20; TEMP 97.7; O2SAT 97
[2016-09-30] MEDS: traZODone HCL 100 MG TAB PO SCH (20:57)
[2016-09-30 21:00] VITALS: BP 124/71; PULSE 77; RESP 20; TEMP 97.8; O2SAT 97
[2016-10-01] MEDS: oxyCODONE/ACETAMINOPHEN 5 MG/325 MG TAB PO PRN ×2 (00:25→07:58)
[2016-10-01 00:30] VITALS: BP 128/72; PULSE 82; RESP 18; TEMP 98.3; O2SAT 99
[2016-10-01 05:00] VITALS: BP 120/56; PULSE 78; RESP 18; O2SAT 99
[2016-10-01] MEDS: HYDROmorphone HCL PF 1 MG/ML VIAL IV PUSH PRN (05:04)
[2016-10-01] MEDS: HYDROCORTISONE 1% CREAM 30 GM TOPICAL SCH ×3 (05:53→20:22)
[2016-10-01] MEDS: GABAPENTIN 300 MG CAP PO SCH ×3 (07:56→18:10)
[2016-10-01] MEDS: FAMOTIDINE 20 MG TAB PO SCH ×2 (07:58→20:22)
[2016-10-01] MEDS: DOCUSATE SODIUM 100 MG CAP PO SCH ×2 (07:58→20:22)
[2016-10-01] MEDS: levETIRAcetam 500 MG TAB PO SCH ×2 (07:58→20:22)
[2016-10-01] MEDS: LACTULOSE SYRUP 20 GM/30 ML CUP PO SCH (07:59)
[2016-10-01] MEDS: SERTRALINE HCL 50 MG TAB PO SCH (07:59)
[2016-10-01] MEDS: REMOVE OLD PATCH T-DERMAL SCH (08:00)
[2016-10-01] MEDS: NICOTINE 21 MG/24 HR PATCH T-DERMAL SCH (08:00)
[2016-10-01] MEDS: SODIUM CHLORIDE 0.9% FLUSH 5 ML FLUSH IVF SCH ×2 (08:02→20:22)
[2016-10-01 08:27] VITALS: BP 120/72; PULSE 76; RESP 18; TEMP 97.4; O2SAT 99
[2016-10-01] MEDS ORDERED: NICO21DI25 T-DERMAL (10:57)
[2016-10-01] MEDS ORDERED: DILA2TAB2 PO (10:57)
[2016-10-01] MEDS ORDERED: DILA4TAB2 PO (10:57)
[2016-10-01] MEDS ORDERED: ZOLO50TA PO (10:57)
[2016-10-01] MEDS ORDERED: IMIT50TA PO (10:57)
[2016-10-01] MEDS ORDERED: NEUR300C PO (10:57)
[2016-10-01] MEDS ORDERED: LEVE500 PO (10:57)
[2016-10-01] MEDS ORDERED: Lactulose Liq PO (10:57)
[2016-10-01] MEDS ORDERED: ENOX40P SQ (10:57)
[2016-10-01] MEDS ORDERED: TRAZ50TA12 PO (10:57)
[2016-10-01] MEDS ORDERED: HYDROmorphone HCL 2 MG TAB PO PRN (11:00)
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
[2016-10-01] MEDS: SUMAtriptan SUCCINATE 50 MG TAB PO PRN ×2 (11:43→13:37)
[2016-10-01 12:00] VITALS: BP 142/80; PULSE 93; RESP 20; TEMP 98.9; O2SAT 95
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
[2016-10-01] MEDS: HYDROmorphone HCL 4 MG TAB PO PRN ×2 (14:50→18:35)
[2016-10-01 16:00] VITALS: BP 128/84; PULSE 83; RESP 20; TEMP 98.9; O2SAT 94
[2016-10-01] MEDS: ENOXAPARIN SODIUM 40 MG/0.4 ML SYRINGE SQ SCH (18:13)
[2016-10-01] MEDS: traZODone HCL 100 MG TAB PO SCH (20:22)
[2016-10-01 20:34] VITALS: BP 134/92; PULSE 82; RESP 16; TEMP 98.3; O2SAT 97
[2016-10-02] MEDS: HYDROCORTISONE 1% CREAM 30 GM TOPICAL SCH (05:42)
[2016-10-02 08:00] VITALS: BP 121/75; PULSE 93; RESP 17; TEMP 97.5; O2SAT 97
[2016-10-02] MEDS: REMOVE OLD PATCH T-DERMAL SCH (08:25)
[2016-10-02] MEDS: NICOTINE 21 MG/24 HR PATCH T-DERMAL SCH (08:25)
[2016-10-02] MEDS: DOCUSATE SODIUM 100 MG CAP PO SCH (08:26)
[2016-10-02] MEDS: levETIRAcetam 500 MG TAB PO SCH (08:26)
[2016-10-02] MEDS: SERTRALINE HCL 50 MG TAB PO SCH (08:26)
[2016-10-02] MEDS: FAMOTIDINE 20 MG TAB PO SCH (08:26)
[2016-10-02] MEDS: LACTULOSE SYRUP 20 GM/30 ML CUP PO SCH (08:26)
[2016-10-02] MEDS: GABAPENTIN 300 MG CAP PO SCH (08:26)
[2016-10-02] MEDS: SODIUM CHLORIDE 0.9% FLUSH 5 ML FLUSH IVF SCH (08:30)
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
[2016-10-09] MEDS ORDERED: SHOWER CHAIR (12:38)
[2016-10-10] MEDS ORDERED: NEUR300C PO (12:37)
[2016-10-10] MEDS ORDERED: LEVE500 PO (12:37)
[2016-10-10] MEDS ORDERED: DOCU1CAP39 PO (12:37)
[2016-10-10] MEDS ORDERED: OXYC-392 PO (12:37)
[2016-10-10] MEDS ORDERED: SENN1TAB PO (12:37)
[2016-10-10] MEDS ORDERED: ALPR.5 PO (12:37)
[2016-10-10] MEDS ORDERED: NICO21DI25 T-DERMAL (12:37)
[2016-10-10] MEDS ORDERED: ZOLO50TA PO (12:37)
[2016-10-10] MEDS ORDERED: BUTATAB6 PO (12:37)
[2016-10-14] MEDS ORDERED: WHEEMIS3 (08:23)
[2016-10-17] MEDS ORDERED: OXYC1CAP PO (12:33)
[2016-10-17] MEDS ORDERED: OXYC-392 PO (15:32)
[2016-10-22] MEDS ORDERED: BUTA1CAP PO (11:59)
[2016-10-25] MEDS ORDERED: OXYC-392 PO (12:45)
== END 2016-10-02 10:01 | DRG 25 ==
LOC: NEPE 03:05 → NEDA 05:44 → EEVIPCON 05:44 → N03B 08:45 → N05A 08-15 15:28 → N03B 09-24 14:21 → N05A 09-25 16:59
PROVIDERS: ADMIT Surgery; ATTEND Surgery
PROC: 00H032Z Insertion of Monitoring Device into Brain, Percutaneous Approach (ICD-10-PCS; 2016-08-12)
PROC: 4A103BD Monitoring of Intracranial Pressure, Percutaneous Approach (ICD-10-PCS; 2016-08-12)
PROC: 0BH17EZ Insertion of Endotracheal Airway into Trachea, Via Natural or Artificial Opening (ICD-10-PCS; 2016-08-12)
PROC: 5A1945Z Respiratory Ventilation, 24-96 Consecutive Hours (ICD-10-PCS; 2016-08-12)
PROC: 05H533Z Insertion of Infusion Device into Right Subclavian Vein, Percutaneous Approach (ICD-10-PCS; 2016-08-12)
PROC: 00C40ZZ Extirpation of Matter from Intracranial Subdural Space, Open Approach (ICD-10-PCS; principal; 2016-08-12 09:31)
PROC: 0NR Head and Facial Bones, Replacement (ICD-10-PCS; 2016-09-24)
DX: S06.5X0A Traumatic subdural hemorrhage without loss of consciousness, initial encounter (principal); G93.40 Encephalopathy, unspecified; J96.00 Acute respiratory failure, unspecified whether with hypoxia or hypercapnia; G81.94 Hemiplegia, unspecified affecting left nondominant side; F19.20 Other psychoactive substance dependence, uncomplicated; F02.81 Dementia in other diseases classified elsewhere, unspecified severity, with behavioral disturbance; S06.340A Traumatic hemorrhage of right cerebrum without loss of consciousness, initial encounter; S02.0XXA Fracture of vault of skull, initial encounter for closed fracture; S06.6X0A Traumatic subarachnoid hemorrhage without loss of consciousness, initial encounter; F41.9 Anxiety disorder, unspecified; S40.812A Abrasion of left upper arm, initial encounter; Y00.XXXA Assault by blunt object, initial encounter; F17.210 Nicotine dependence, cigarettes, uncomplicated; Z88.0 Allergy status to penicillin; F10.20 Alcohol dependence, uncomplicated; G43.909 Migraine, unspecified, not intractable, without status migrainosus; G47.00 Insomnia, unspecified; M95.2 Other acquired deformity of head; Y93.89 Activity, other specified; Y92.009 Unspecified place in unspecified non-institutional (private) residence as the place of occurrence of the external cause; Y99.9 Unspecified external cause status; F32.9 Major depressive disorder, single episode, unspecified; R47.81 Slurred speech; S70.312A Abrasion, left thigh, initial encounter; S50.312A Abrasion of left elbow, initial encounter; S50.812A Abrasion of left forearm, initial encounter
CPT/HCPCS: 31500; 36556; 36600; 70450; 71010; 71260; 72125; 72128; 72131; 72170; 73030; 73080; 73552; 74177; 76937; 80048; 80053; 80307; 80324; 80346; 80349; 80353; 81001; 82805; 83690; 83735; 83930; 84100; 84132; 84155; 84295; 85025; 85610; 85652; 85730; 86850; 86900; 86901; 86920; 87640; 87641; 88304; 94002; 94003; 94150; 94640; 94664; 94667; 94770; 96365; 96375; C1713; C9113; G0480; J0131; J0171; J0461; J0610; J0690; J1170; J1580; J1650; J1940; J1953; J2150; J2250; J2270; J2370; J2405; J2543; J2710; J3010; J3370; J3480; J7030; J7040; J7050; J7120; Q9967

== ENCOUNTER 2016-11-15 07:50 | Emergency (ER) | payer OTHER ==
[~2016-11-15] VITALS: Ht 180.3 cm; Wt 98.0 kg
[~2016-11-15 07:50] MED LIST changes: +ALPR.5 PO; +BENA25TA6; +BUTA1CAP PO; +BUTATAB6 PO; +CETI-1; +DOCU1CAP39 PO; +FLUT50SP EACH NARE; +LEVE500 PO; +MELA1TAB18 PO; +NEUR300C PO; +NICO21DI25 T-DERMAL; +OMEP20TA PO; +OXYC-392 PO; -ROBA750T3 PO; +SENN1TAB PO; +SHOWER CHAIR; +TIZA4 PO; +WHEEMIS3; -Z.0.NO CURRENT MEDS; +ZOLO50TA PO
[2016-11-15 07:52] VITALS: BP 144/93; PULSE 63; RESP 15; TEMP 97.8; O2SAT 99
[2016-11-15] MEDS ORDERED: ACET-822 PO (08:15)
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
[2016-11-28] MEDS ORDERED: ATOR20TA15 PO (11:56)
[2016-11-28] MEDS ORDERED: VIIB10TA PO (12:52)
[2016-11-28] MEDS ORDERED: ABIL2TAB2 PO (12:52)
[2016-11-28] MEDS ORDERED: OMEP20TA PO (12:52)
== END 2016-11-15 09:00 | disposition left against medical advice (07) ==
LOC: NEPD 07:50
DX: Z76.0 Encounter for issue of repeat prescription (principal)
CPT/HCPCS: 99281

== ENCOUNTER → 2016-12-03 | Outpatient (CLI) | payer OTHER ==
[~2016-12-03] MED LIST changes: +ABIL2TAB2 PO; +ACET-822 PO; +ASPI1TAB93; +ATOR20TA15 PO; -BENA25TA6; -CETI-1; +GABA600T PO; +MIRTA15 PO; -SENN1TAB PO; -SHOWER CHAIR; +TOPA100T11 PO; +VIIB10TA PO; -WHEEMIS3; -ZOLO50TA PO; +[UNRECOGNIZED DRUG - CODE] PO; +kratom PO
--- NOTE | 2016-12-03 17:47 | RADRPT ---
EXAM DATE/TIME: 12/03/2016 16:39 [facility] COMPARISON: No previous studies available for comparison. INDICATIONS : Left shoulder pain with decreased range of motion. MEDICAL HISTORY : None. SURGICAL HISTORY : Craniotomy. Cranioplasty. ENCOUNTER: Subsequent ACUITY: 2 months PAIN SCORE: 8/10 LOCATION: Left shoulder. TECHNIQUE: Multiplanar, multisequence MRI examination was performed without contrast. FINDINGS: There is a linear intrasubstance tear of the rotator cuff distally with tendinopathy. A full-thicknes s tear present. Lung head biceps tendon is intact. Subscapularis tendon intact. There is a small shoulder joint effusion. There is premature osteoarthritis at the shoulder joint wit h osteophyte formation and questionable anterior labral tear and SLAP at the glenohumeral joint. CONCLUSION: 1. Rotator cuff tendinopathy with linear intrasubstance tear without full-thickness tear. 2. Small shoulder joint effusion. 3. 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 Mild osteoarthritis of the a.c. joint. 4. Questionable labral tear. Jd Daigle MD on December 03, 2016 at 17:40 Board Certified Radiologist. This report was verified electronically.
== END ==
LOC: HRAD 16:03
PROVIDERS: ATTEND Physical Medicine & Rehabilitation
DX: G81.94 Hemiplegia, unspecified affecting left nondominant side (principal); Z74.09 Other reduced mobility
CPT/HCPCS: 73221